=== PATIENT | male | born 1965 | race American Indian/Alaskan Native ===

== ENCOUNTER 2017-07-23 04:42 | Emergency (ER) | payer MEDICARE ==
[2017-07-23] MEDS ORDERED: HCTZ PO ONE (05:00)
[2017-07-23] MEDS ORDERED: TENORMIN PO ONE (05:00)
[2017-07-23] MEDS ORDERED: TENORMIN ONE (05:02)
[2017-07-23] MEDS ORDERED: HCTZ ONE (05:02)
[2017-07-23] MEDS ORDERED: MORPHINE IM ONE (09:37)
[2017-07-23] MEDS ORDERED: ZOFRAN ODT PO ONE (09:37)
--- NOTE | 2017-07-23 10:24 | Emergency Department Report ---
Entered by LORA BOSE, acting as scribe for ARLETTE MAC NP. ED Back Pain/Injury HPI - General Chief Complaint: Back Pain/Injury Stated Complaint: HIP PAIN , BACK PAIN Time Seen by Provider: 07/23/17 09:31 Source: patient Limitations: No Limitations - History of Present Illness Initial Comments: 51 y/o male presents to the ED c/o back pain and right hip pain x 3 years but worse today. Denies fever, chills, nausea, vomiting, chest pain and SOB. Pain is described as sharp, 8/10 and radiating to right leg. Patient states he is seeing specialist and pain management for chronic back pain (hurt his back at work while lifting). MRI done 2 weeks ago but waiting on results. Next appointment with pain management on 08/08/17 but ran out of pain meds 1 11/14 weeks ago. No alleviating or aggravating factors. NKDA. BARKLEY Complaint: back pain -: year(s) Similar Symptoms Previously: Yes Place: work Radiation: right leg Severity: severe Severity scale (0 -10): 8 Quality: sharp Consistency: constant Improves With: none Worsens With: none Context: while lifting Associated Symptoms: denies: chest pain, fever/chills, headaches, nausea/ vomiting, shortness of breath - Related Data Home Medications Medication Instructions Recorded Confirmed Last Taken Ranitidine HCl [Acid Lead Carpenter] 150 mg PO BID 01/24/16 01/24/16 Unknown Previous Rx's Medication Instructions Recorded Last Taken Type ALBUTEROL Inhaler [ProAir HFA 2 puff IH QID PRN #1 inhalation 02/17/16 Unknown Rx Inhaler] Prednisone [predniSONE 10 mg 10 mg PO .TAPER #1 tab.ds.pk 02/17/16 Unknown Rx (6-Day Pack, 21 Tabs)] Ibuprofen [Motrin 800 MG tab] 800 mg PO Q8HR PRN #40 tablet 03/05/16 Unknown Rx Cyclobenzaprine [Flexeril 10 MG 10 mg PO TID PRN #30 tablet 04/19/16 Unknown Rx TAB] Amitriptyline [Elavil] 25 mg PO QHS PRN #30 tab 01/16/17 Unknown Rx traMADol [Ultram 50 MG tab] 50 mg PO Q8HR PRN #30 tablet 03/05/17 Unknown Rx Atenolol [Tenormin] 25 mg PO DAILY #30 tablet 07/23/17 Unknown Rx Hydrochlorothiazide [HCTZ] 25 mg PO DAILY #30 tablet 07/23/17 Unknown Rx Allergies Allergy/AdvReac Type Severity Reaction Status Date / Time No Known Allergies Allergy Verified 11/20/15 08:38 ED Review of Systems Comment: All other systems reviewed and negative Constitutional: denies: chills, fever Respiratory: denies: shortness of breath Cardiovascular: denies: chest pain Gastrointestinal: denies: nausea, vomiting Musculoskeletal: back pain, other (hip pain) Neurological: denies: headache ED Past Medical Hx - Past Medical History Previous Medical History?: Yes Hx Hypertension: Yes Hx GERD: Yes Additional medical history: CHRONIC BACK PAIN - Surgical History Past Surgical History?: Yes Additional Surgical History: Back? - Social History Smoking Status: Current Every Day Smoker Substance Use Type: None - Medications Home Medications: Home Medications Medication Instructions Recorded Confirmed Last Taken Type Ranitidine HCl [Acid Lead Carpenter] 150 mg PO BID 01/24/16 01/24/16 Unknown History ALBUTEROL Inhaler [ProAir HFA 2 puff IH QID PRN #1 inhalation 02/17/16 Unknown Rx Inhaler] Prednisone [predniSONE 10 mg 10 mg PO .TAPER #1 tab.ds.pk 02/17/16 Unknown Rx (6-Day Pack, 21 Tabs)] Ibuprofen [Motrin 800 MG tab] 800 mg PO Q8HR PRN #40 tablet 03/05/16 Unknown Rx Cyclobenzaprine [Flexeril 10 MG 10 mg PO TID PRN #30 tablet 04/19/16 Unknown Rx TAB] Amitriptyline [Elavil] 25 mg PO QHS PRN #30 tab 01/16/17 Unknown Rx traMADol [Ultram 50 MG tab] 50 mg PO Q8HR PRN #30 tablet 01/16/17 Unknown Rx Atenolol [Tenormin] 25 mg PO DAILY #30 tablet 07/23/17 Unknown Rx Hydrochlorothiazide [HCTZ] 25 mg PO DAILY #30 tablet 07/23/17 Unknown Rx ED Physical Exam - General Limitations: No Limitations (0) General appearance: alert, in no apparent distress - Head Head exam: Present: atraumatic, normocephalic, normal inspection - Eye Eye exam: Present: normal appearance, PERRL, EOMI. Absent: scleral icterus, conjunctival injection, nystagmus, periorbital swelling, periorbital tenderness Pupils: Present: normal accommodation - ENT ENT exam: Present: normal exam, normal orophraynx, mucous membranes moist, normal external ear exam - Neck Neck exam: Present: normal inspection, full ROM. Absent: tenderness, meningismus, lymphadenopathy, thyromegaly - Respiratory Respiratory exam: Present: normal lung sounds bilaterally. Absent: respiratory distress, wheezes, rales, rhonchi, stridor, chest wall tenderness, accessory muscle use, decreased breath sounds, prolonged expiratory - Cardiovascular Cardiovascular Exam: Present: regular rate, normal rhythm, normal heart sounds. Absent: bradycardia, tachycardia, irregular rhythm, systolic murmur, diastolic murmur, rubs, gallop - GI/Abdominal GI/Abdominal exam: Present: soft, normal bowel sounds. Absent: distended, tenderness, guarding, rebound, rigid, diminished bowel sounds - Extremities Exam Extremities exam: Present: normal inspection, full ROM, normal capillary refill. Absent: tenderness, pedal edema, joint swelling, calf tenderness - Expanded Lower Extremity Exam Right Hip exam: Present: normal inspection, full ROM. Absent: external rotation, internal rotation Gait: Positive: observed and normal - Back Exam Back exam: Present: normal inspection, full ROM, tenderness (lumbar tenderness) , paraspinal tenderness (L spine ). Absent: CVA tenderness (R), CVA tenderness (L), muscle spasm, vertebral tenderness, rash noted - Expanded Back Exam Expanded Back exam: Absent: saddle anesthesia Back exam: Positive Straight Leg Raise: Right, Negative Straight Leg Raising: Left - Neurological Exam Neurological exam: Present: alert, oriented X3, normal gait - Psychiatric Psychiatric exam: Present: normal affect, normal mood - Skin Skin exam: Present: warm, dry, intact, normal color. Absent: rash ED Course Vital Signs 07/23/17 07/23/17 07/23/17 04:48 05:01 09:54 Temperature 98.5 F Pulse Rate 91 H 91 H Respiratory 22 20 Rate Blood Pressure 184/115 184/115 O2 Sat by Pulse 99 Oximetry - Reevaluation(s) Reevaluation #1: 07/23/17 09:56 PT is in pain management. [facility] [employer], RX bottles dated . Will treat pt's acute pain while in ED and pt will need to follow up with pain management. PT verbalizes understanding. 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 PT's bp improved. PT aware he will need to take his bp medication as prescribed. PT has no questions at this time. - Pulse Oximetry Interpretation Digit-Finger Initial Pulse Oximetry Readin Actions Taken: none ED Medical Decision Making - Differential Diagnosis htn, chronic pain Critical Care Time: No ED Disposition Clinical Impression: Acute exacerbation of chronic low back pain Hypertension Qualifiers: Hypertension type: essential hypertension Qualified Code(s): I10 - Essential ( primary) hypertension Disposition: TO HOME OR SELFCARE Is pt being admited?: No Does the pt Need Aspirin: No Condition: Stable Instructions: Chronic Pain (ED), Hypertension (ED) Additional Instructions: Follow up with PCP in 3-5 days for bp recheck Follow up with Pain management in 3-5 days You received a Narcotic pain medication while you were in the ED today. Do not drink alcohol or drive for the next 8 hours Prescriptions: Atenolol [Tenormin] 25 mg PO DAILY #30 tablet Hydrochlorothiazide [HCTZ] 25 mg PO DAILY #30 tablet Referrals: PRIMARY CARE, [Primary Care Provider] - 3-5 Days ANTONIO GONZALEZ MD [Staff Physician] - 3-5 Days [facility] [Outside] - 3-5 Days Time of Disposition: 10:24 This documentation as recorded by the LIDYA benavidez ELIZABETH,accurately reflects the service I personally performed and the decisions made by me,ARLETTE MAC NP.
[2017-07-23 10:26] VITALS: BP 162/103
== END 2017-07-23 10:28 | disposition home or self-care (01) ==
LOC: ED 04:42
DX: M54.5 Low back pain (principal); G89.29 Other chronic pain; I10 Essential (primary) hypertension; K21.9 Gastro-esophageal reflux disease without esophagitis; F17.200 Nicotine dependence, unspecified, uncomplicated
CPT/HCPCS: 96372; 99282; J2270; Q0162

== ENCOUNTER 2017-11-21 04:10 | Emergency (ER) | payer MEDICARE ==
[2017-11-21 05:00] VITALS: BP 159/99
[2017-11-21 08:06] LABS: Basophils # (Auto) 0.1 K/mm3 (0.0-0.1); Eosinophils # (Auto) 0.1 K/mm3 (0.0-0.4); Eosinophils % (Auto) 1.4 % (0.0-4.3); Hematocrit 38.6 % (35.5-45.6); Hemoglobin 12.5 gm/dl (11.8-15.2); Lymphocytes # (Auto) 0.9 K/mm3 (1.2-5.4); Lymphocytes % (Auto) 13.9 % (13.4-35.0); Mean Corpuscular HGB Conc 32 % (32-34); Mean Corpuscular Hemoglobin 30 pg (28-32); Mean Corpuscular Volume 91 fl (84-94); Monocytes % (Auto) 15.9 % (0.0-7.3); Platelet Count 201 K/mm3 (140-440); Red Blood Count 4.25 M/mm3 (3.65-5.03); Red Cell Distribution Width 16.3 % (13.2-15.2)
[2017-11-21 08:18] LABS: BUN/Creatinine Ratio 15; Blood Urea Nitrogen 12 mg/dL (9-20); Calcium 8.6 mg/dL (8.4-10.2); Hemolysis Index 7
--- NOTE | 2017-11-21 09:19 | XRay Report ---
CHEST 2 VIEWS INDICATION: Shortness of breath. COMPARISON: 02/17/2016. FINDINGS: PA and lateral chest radiographs demonstrate normal cardiomediastinal silhouette. Now clear lungs. Intact bones. CONCLUSION: No acute disease in the chest, improved. Thank you for the opportunity to participate in this patient's care.
== END 2017-11-21 18:28 | disposition left against medical advice (07) ==
LOC: ED 04:10
DX: R06.02 Shortness of breath (principal); M54.9 Dorsalgia, unspecified; Z53.21 Procedure and treatment not carried out due to patient leaving prior to being seen by health care provider
CPT/HCPCS: 36415; 71046; 80048; 85025; 87400; 93005; 93010

== ENCOUNTER 2017-12-22 08:22 | Emergency (ER) | payer MEDICARE ==
[2017-12-22 08:38] VITALS: BP 127/86
[2017-12-22 09:09] LABS: Alanine Aminotransferase 11 units/L (7-56); BUN/Creatinine Ratio 21; Blood Urea Nitrogen 23 mg/dL (9-20); Calcium 8.9 mg/dL (8.4-10.2); Hemolysis Index 4
[2017-12-22 09:22] LABS: Basophils % (Auto) 0.5 % (0.0-1.8); Eosinophils # (Auto) 0.8 K/mm3 (0.0-0.4); Eosinophils % (Auto) 8.9 % (0.0-4.3); Hematocrit 39.2 % (35.5-45.6); Hemoglobin 13.2 gm/dl (11.8-15.2); Lymphocytes # (Auto) 2.8 K/mm3 (1.2-5.4); Lymphocytes % (Auto) 31.9 % (13.4-35.0); Mean Corpuscular HGB Conc 34 % (32-34); Mean Corpuscular Hemoglobin 30 pg (28-32); Mean Corpuscular Volume 89 fl (84-94); Monocytes # (Auto) 0.8 K/mm3 (0.0-0.8); Monocytes % (Auto) 9.4 % (0.0-7.3); Platelet Count 309 K/mm3 (140-440); Red Blood Count 4.42 M/mm3 (3.65-5.03)
--- NOTE | 2017-12-22 11:33 | Emergency Department Report ---
Vomiting/Diarrhea - HPI Chief Complaint: Abdominal Pain Stated Complaint: ABD PAIN Time Seen by Provider: 12/22/17 11:25 Duration: patient is a 52-year-old Male who is presenting with epigastric discomfort and burning sensation mostly at night and in the mornings for approximately 3-5 months. Patient states this is slightly worse this week after taking meds for flu. Patient also has has some mild constipation as well. But is passing flatus. Severity: mild Nausea/Vomiting Severity: None Diarrhea Severity: None Pain Location: Epigastric Symptoms: Yes Able to Tolerate Fluids, No Watery Diarrhea, No Bloody diarrhea, No Fever, No Recent Unusual Foods, No Recent Untreated Water, No Recent use of Antibiotics, No Family w/ Similar Symptoms, No Contacts w/ Similar Symptoms, No Rash, No Hematuria, No Recent URI Symptoms ED Review of Systems ROS: Stated complaint: ABD PAIN Other details as noted in HPI Comment: All other systems reviewed and negative ED Past Medical Hx - Past Medical History Previous Medical History?: Yes Hx Hypertension: Yes Hx GERD: Yes Additional medical history: CHRONIC BACK PAIN, Post right hip surgery 10/03/17 - Surgical History Past Surgical History?: Yes Additional Surgical History: Back, right hip - Social History Smoking Status: Current Every Day Smoker Substance Use Type: Alcohol, Prescribed - Medications Home Medications: Home Medications Medication Instructions Recorded Confirmed Last Taken Type Ranitidine HCl [Acid Authorization Specialist] 150 mg PO BID 01/24/16 01/24/16 Unknown History ALBUTEROL Inhaler [ProAir HFA 2 puff IH QID PRN #1 inhalation 02/17/16 Unknown Rx Inhaler] Prednisone [predniSONE 10 mg 10 mg PO .TAPER #1 tab.ds.pk 02/17/16 Unknown Rx (6-Day Pack, 21 Tabs)] Ibuprofen [Motrin 800 MG tab] 800 mg PO Q8HR PRN #40 tablet 03/05/16 Unknown Rx Cyclobenzaprine [Flexeril 10 MG 10 mg PO TID PRN #30 tablet 04/19/16 Unknown Rx TAB] Amitriptyline [Elavil] 25 mg PO QHS PRN #30 tab 01/16/17 Unknown Rx traMADol [Ultram 50 MG tab] 50 mg PO Q8HR PRN #30 tablet 01/16/17 Unknown Rx Atenolol [Tenormin] 25 mg PO DAILY #30 tablet 07/23/17 Unknown Rx Hydrochlorothiazide [HCTZ] 25 mg PO DAILY #30 tablet 07/23/17 Unknown Rx Dicyclomine [Bentyl] 20 mg PO QID #14 tablet 12/22/17 Unknown Rx Sucralfate [Carafate] 1 gm PO Q6HR 30 Days udc 12/22/17 Unknown Rx Vomiting Diarrhea Exam - Exam General: Vital signs noted. No distress. Alert and acting appropriately. HEENT: Yes Moist Mucous Membranes, No Pharyngeal Erythema, No Pharyngeal Exudates, No Rhinorrhea, No Conjuctival Injection, No Frontal Tenderness, No Maxillary Tenderness Neck: No Adenopathy, No Rigidity Lungs: Yes Clear Lung Sounds, Yes Good Air Exchange, No Wheezes, No Stridor, No Cough, No Nasal Flaring, No Retractions, No Use of Accessory Muscles Heart exam: Regular: Yes, Murmur: No, Tachycardia: No Abdomen: Tenderness: No, Peritoneal Signs: No, Distention: No, Hyperactive Bowel sounds: No Skin exam: Rash: No, Edema: No, Normal turgor: Yes Neurologic: Alert and oriented, no deficits. Musculoskeletal: Unremarkable. ED Course Vital Signs 12/22/17 08:35 Temperature 98.3 F Pulse Rate 87 Respiratory 20 Rate Blood Pressure 127/86 O2 Sat by Pulse 97 Oximetry ED Medical Decision Making - Lab Data Result diagrams: 12/22/17 08:40 12/22/17 08:40 - Medical Decision Making Patient's laboratory studies are within normal limits including a lipase. Patient will be referred to gastroenterology will be started on Carafate since [id number] ranitidine is not helping and be discharged home. Critical care attestation.: If time is entered above; I have spent that time in minutes in the direct care of this critically ill patient, excluding procedure time. ED Disposition Clinical Impression: GERD (gastroesophageal reflux disease) Qualifiers: Esophagitis presence: esophagitis presence not specified Qualified Code(s): K21.9 - Gastro-esophageal reflux disease without esophagitis Disposition: DC-01 TO HOME OR SELFCARE Is pt being admited?: No Does the pt Need Aspirin: No Condition: Stable Instructions: Gastroesophageal Reflux Disease (ED) Prescriptions: Dicyclomine [Bentyl] 20 mg PO QID #14 tablet Sucralfate [Carafate] 1 gm PO Q6HR 30 Days [facility] [place] Referrals: NAZ GUZMÁN MD [Staff Physician] - 3-5 Days
[2017-12-22 11:39] LABS: Bilirubin,Urine NEG (Negative); Blood,Urine NEG (Negative); Color,Urine Yellow (Yellow); Mucus,Urine FEW /HPF; Nitrite,Urine NEG (Negative); Protein,Urine <15 mg/dL mg/dL (Negative); Urobilinogen,Urine < 2.0 mg/dL (<2.0)
[2017-12-22 11:42] LABS: WBC,Urine < 1.0 /HPF (0.0-6.0)
[2017-12-22 11:56] LABS: Hyaline Casts,Urine 1 /LPF
== END 2017-12-22 12:30 | disposition home or self-care (01) ==
LOC: ED 08:22
DX: K21.9 Gastro-esophageal reflux disease without esophagitis (principal); I10 Essential (primary) hypertension; F17.200 Nicotine dependence, unspecified, uncomplicated
CPT/HCPCS: 36415; 80053; 81001; 83690; 85025; 99283

== ENCOUNTER 2018-01-05 02:46 | Emergency (ER) | payer MEDICARE ==
[2018-01-05 04:14] VITALS: BP 124/92
[2018-01-05] MEDS ORDERED: TORADOL IM ONE (04:47)
--- NOTE | 2018-01-05 04:53 | Emergency Department Report ---
ED Recheck HPI - General Chief Complaint: Extremity Injury, Lower Stated Complaint: BSCK PAIN Time Seen by Provider: 01/05/18 04:28 Source: patient Mode of arrival: Ambulatory Limitations: No Limitations - History of Present Illness Initial Comments: This is a 52-year-old male nontoxic, well nourished in appearance, no acute signs of distress presents to the ED with c/o of acute on chronic back and hip pain. Patient stated he follows up with a pain specialist and was discharged for unknown reason. Patient stated he has been taking tramadol and is currently out of the past 2 weeks. Patient denies any new trauma. Patient denies any chest pain, shortness of breath, fever, headache, stiff neck, bladder or bowel instability, dysuria, polyuria or hematuria. Patient denies any allergies. Past medical history includes GERD, hypertension and chronic back pain and chronic hip pain. MD Complaint: medication refill request Symptoms Since Prior Visit: no new symptoms Associated Symptoms: none. denies: fever, chills, chest pain, shortness of breath, rash, malaise, nasuea, abdominal pain - Related Data Home Medications Medication Instructions Recorded Confirmed Last Taken Ranitidine HCl [Acid Yarder Boss] 150 mg PO BID 01/24/16 01/24/16 Unknown Previous Rx's Medication Instructions Recorded Last Taken Type ALBUTEROL Inhaler [ProAir HFA 2 puff IH QID PRN #1 inhalation 02/17/16 Unknown Rx Inhaler] Prednisone [predniSONE 10 mg 10 mg PO .TAPER #1 tab.ds.pk 02/17/16 Unknown Rx (6-Day Pack, 21 Tabs)] Ibuprofen [Motrin 800 MG tab] 800 mg PO Q8HR PRN #40 tablet 03/05/16 Unknown Rx Cyclobenzaprine [Flexeril 10 MG 10 mg PO TID PRN #30 tablet 04/19/16 Unknown Rx TAB] Amitriptyline [Elavil] 25 mg PO QHS PRN #30 tab 01/16/17 Unknown Rx traMADol [Ultram 50 MG tab] 50 mg PO Q8HR PRN #30 tablet 01/16/17 Unknown Rx Atenolol [Tenormin] 25 mg PO DAILY #30 tablet 07/23/17 Unknown Rx Hydrochlorothiazide [HCTZ] 25 mg PO DAILY #30 tablet 07/23/17 Unknown Rx Dicyclomine [Bentyl] 20 mg PO QID #14 tablet 12/22/17 Unknown Rx Sucralfate [Carafate] 1 gm PO Q6HR 30 Days udc 12/22/17 Unknown Rx Ibuprofen [Motrin] 600 mg PO Q8H PRN #30 tablet 01/05/18 Unknown Rx Allergies Allergy/AdvReac Type Severity Reaction Status Date / Time No Known Allergies Allergy Verified 11/20/15 08:38 ED Review of Systems ROS: Stated complaint: BSCK PAIN Other details as noted in HPI Constitutional: denies: chills, fever Eyes: denies: eye pain, eye discharge, vision change ENT: denies: ear pain, throat pain Respiratory: denies: cough, shortness of breath, wheezing Cardiovascular: denies: chest pain, palpitations Endocrine: no symptoms reported Gastrointestinal: denies: abdominal pain, nausea, diarrhea Genitourinary: denies: urgency, dysuria Musculoskeletal: back pain, arthralgia. denies: joint swelling Skin: denies: rash, lesions Neurological: denies: headache, weakness, paresthesias Psychiatric: denies: anxiety, depression Hematological/Lymphatic: denies: easy bleeding, easy bruising ED Past Medical Hx - Past Medical History Previous Medical History?: Yes Hx Hypertension: Yes Hx GERD: Yes Additional medical history: CHRONIC BACK PAIN, Post right hip surgery 10/03/17 - Surgical History Past Surgical History?: Yes Additional Surgical History: right hip - Social History Smoking Status: Current Some Day Smoker Substance Use Type: Alcohol - Medications Home Medications: Home Medications Medication Instructions Recorded Confirmed Last Taken Type Ranitidine HCl [Acid Yarder Boss] 150 mg PO BID 01/24/16 01/24/16 Unknown History ALBUTEROL Inhaler [ProAir HFA 2 puff IH QID PRN #1 inhalation 02/17/16 Unknown Rx Inhaler] Prednisone [predniSONE 10 mg 10 mg PO .TAPER #1 tab.ds.pk 02/17/16 Unknown Rx (6-Day Pack, 21 Tabs)] Ibuprofen [Motrin 800 MG tab] 800 mg PO Q8HR PRN #40 tablet 03/05/16 Unknown Rx Cyclobenzaprine [Flexeril 10 MG 10 mg PO TID PRN #30 tablet 04/19/16 Unknown Rx TAB] Amitriptyline [Elavil] 25 mg PO QHS PRN #30 tab 01/16/17 Unknown Rx traMADol [Ultram 50 MG tab] 50 mg PO Q8HR PRN #30 tablet 01/16/17 Unknown Rx Atenolol [Tenormin] 25 mg PO DAILY #30 tablet 07/23/17 Unknown Rx Hydrochlorothiazide [HCTZ] 25 mg PO DAILY #30 tablet 07/23/17 Unknown Rx Dicyclomine [Bentyl] 20 mg PO QID #14 tablet 12/22/17 Unknown Rx Sucralfate [Carafate] 1 gm PO Q6HR 30 Days udc 12/22/17 Unknown Rx Ibuprofen [Motrin] 600 mg PO Q8H PRN #30 tablet 01/05/18 Unknown Rx ED Physical Exam - General Limitations: No Limitations General appearance: alert, in no apparent distress - Head Head exam: Present: atraumatic, normocephalic - Eye Eye exam: Present: normal appearance, PERRL, EOMI Pupils: Present: normal accommodation - ENT ENT exam: Present: mucous membranes moist - Neck Neck exam: Present: normal inspection - Respiratory Respiratory exam: Present: normal lung sounds bilaterally. Absent: respiratory distress, wheezes, rales, rhonchi, stridor, chest wall tenderness, accessory muscle use, decreased breath sounds, prolonged expiratory - Cardiovascular Cardiovascular Exam: Present: regular rate, normal rhythm, normal heart sounds. Absent: irregular rhythm, systolic murmur, diastolic murmur, rubs, gallop - GI/Abdominal GI/Abdominal exam: Present: soft, normal bowel sounds. Absent: distended, tenderness, guarding, rebound, rigid, diminished bowel sounds - Rectal Rectal exam: Present: deferred - Extremities Exam Extremities exam: Present: normal inspection, full ROM, normal capillary refill. Absent: tenderness, pedal edema, joint swelling, calf tenderness - Expanded Lower Extremity Exam Right Hip exam: Present: normal inspection, full ROM, external rotation, internal rotation, pelvic stability. Absent: tenderness, swelling, abrasion, laceration , ecchymosis, deformity, crepidus, dislocation, erythema, shortening Upper Leg exam: Present: normal inspection, full ROM. Absent: tenderness, swelling, abrasion, laceration, ecchymosis, deformity, crepidus, dislocation, erythema Knee exam: Present: normal inspection, full ROM Lower Leg exam: Present: normal inspection, full ROM Ankle exam: Present: normal inspection, full ROM Foot/Toe exam: Present: normal inspection, full ROM Neuro vascular tendon exam: Present: no vascular compromise. Absent: pulse deficit, abnormal cap refill, motor deficit, sensory deficit, tendon deficit, extremity cold to touch, pallor, abnormal 2-point discrimination, decreased fine /light touch, foot drop, peroneal nerve deficit, significant pain with passive ROM of distal joint Gait: Positive: observed and normal - Back Exam Back exam: Present: normal inspection, full ROM, paraspinal tenderness (lumbar region). Absent: tenderness, CVA tenderness (R), CVA tenderness (L), muscle spasm, vertebral tenderness, rash noted - Expanded Back Exam Expanded Back exam: Absent: saddle anesthesia Back exam: Negative Straight Leg Raising: Left, Right - Neurological Exam Neurological exam: Present: alert, oriented X3, CN II-XII intact, normal gait, reflexes normal - Psychiatric Psychiatric exam: Present: normal affect, normal mood - Skin Skin exam: Present: warm, dry, intact, normal color. Absent: rash ED Course Vital Signs 01/05/18 04:09 Temperature 98.0 F Pulse Rate 106 H Respiratory 18 Rate Blood Pressure 124/92 O2 Sat by Pulse 94 Oximetry - Reevaluation(s) Reevaluation #1: 01/05/18 04:52 Patient is speaking in full sentences with no signs of distress noted. ED Recheck MDM - Medical Decision Making This is a 52-year-old male presents with chronic hip pain and back pain. Patient is stable and was examined by me. [facility] patient just received tramadol on December 16 for 15 days supply. Patient received Toradol 30 mg IM in the ED. I will discharge patient with Motrin. Patient was instructed to Follow-up with a primary care doctor in 3-5 days or if symptoms worsen and continue return to emergency room as soon as possible. At time of discharge, the patient does not seem toxic or ill in appearance. No acute signs of distress noted. Patient agrees to discharge treatment plan of care. No further questions noted by the patient. Critical care attestation.: If time is entered above; I have spent that time in minutes in the direct care of this critically ill patient, excluding procedure time. ED Disposition Clinical Impression: Chronic back pain Qualifiers: Back pain location: low back pain Back pain laterality: unspecified Sciatica presence: unspecified whether sciatica present Qualified Code(s): M54.5 - Low back pain; G89.29 - Other chronic pain; G89.29 - Other chronic pain Chronic hip pain Qualifiers: Laterality: right Qualified Code(s): M25.551 - Pain in right hip; G89.29 - Other chronic pain; G89.29 - Other chronic pain Disposition: TO HOME OR SELFCARE Is pt being admited?: No Does the pt Need Aspirin: No Condition: Stable Instructions: Chronic Pain (ED), Chronic Back Pain (ED), Arthralgia (ED) Additional Instructions: Follow-up with a orthopedic doctor in 3-5 days or if symptoms worsen and continue return to emergency room as soon as possible. Prescriptions: Ibuprofen [Motrin] 600 mg PO Q8H PRN #30 tablet PRN Reason: Pain Referrals: PRIMARY CARE, [Primary Care Provider] - 3-5 Days EULALIA GONZALEZ MD [Staff Physician] - 3-5 Days ANASTASIIA OSBORN MD [Staff Physician] - 3-[address] [facility] [place] [Outside] - 3-5 Days [facility] [Outside] - 3-5 Days
== END 2018-01-05 05:16 | disposition home or self-care (01) ==
LOC: ED 02:46
DX: M54.5 Low back pain (principal); M25.551 Pain in right hip; G89.29 Other chronic pain; K21.9 Gastro-esophageal reflux disease without esophagitis; I10 Essential (primary) hypertension; F17.200 Nicotine dependence, unspecified, uncomplicated
CPT/HCPCS: 96372; 99282; J1885

== ENCOUNTER 2018-02-28 19:33 | Emergency (ER) | payer MEDICARE ==
[2018-02-28] MEDS ORDERED: TYLENOL ONE (21:29)
[2018-02-28] MEDS ORDERED: CATAPRES ONE ×2 (21:30→21:32)
[2018-02-28 21:35] VITALS: BP 188/102
[2018-02-28] MEDS ORDERED: CATAPRES PO ONE (21:35)
[2018-02-28] MEDS ORDERED: TYLENOL PO ONE (21:36)
== END 2018-02-28 21:45 | disposition left against medical advice (07) ==
LOC: ED 19:33
DX: I10 Essential (primary) hypertension (principal); Z53.21 Procedure and treatment not carried out due to patient leaving prior to being seen by health care provider

== ENCOUNTER 2018-07-10 08:33 | Emergency (ER) | payer MEDICARE ==
[2018-07-10 08:54] VITALS: BP 137/92
--- NOTE | 2018-07-10 09:31 | Emergency Department Report ---
ED General Adult HPI - General Chief complaint: Back Pain/Injury Stated complaint: BACK/RT EAR PAIN Time Seen by Provider: 07/10/18 09:10 Source: patient Mode of arrival: Ambulatory Limitations: No Limitations - History of Present Illness Initial comments: Patient presents to the emergency department with the chief complaint of chronic lower back pain and chronic right ear pain. Patient states he recently changed insurance and has not seen his ENT or pain management doctor in a month. Patient states he's had lower back pain for 7 years and was ultram and Tylenol 3 for chronic back pain. Patient also complains of chronic ear drainage from the right ear for years. -: Gradual Radiation: non-radiation Severity scale (0 -10): 4 Quality: dull Consistency: constant Improves with: none Worsens with: cold therapy Associated Symptoms: denies other symptoms Treatments Prior to Arrival: none - Related Data Home Medications Medication Instructions Recorded Confirmed Last Taken Ranitidine HCl [Acid Staple Cutter] 150 mg PO BID 01/24/16 01/24/16 Unknown Previous Rx's Medication Instructions Recorded Last Taken Type ALBUTEROL Inhaler [ProAir HFA 2 puff IH QID PRN #1 inhalation 02/17/16 Unknown Rx Inhaler] Prednisone [predniSONE 10 mg 10 mg PO .TAPER #1 tab.ds.pk 02/17/16 Unknown Rx (6-Day Pack, 21 Tabs)] Ibuprofen [Motrin 800 MG tab] 800 mg PO Q8HR PRN #40 tablet 03/05/16 Unknown Rx Cyclobenzaprine [Flexeril 10 MG 10 mg PO TID PRN #30 tablet 04/19/16 Unknown Rx TAB] Amitriptyline [Elavil] 25 mg PO QHS PRN #30 tab 01/16/17 Unknown Rx traMADol [Ultram 50 MG tab] 50 mg PO Q8HR PRN #30 tablet 01/16/17 Unknown Rx Atenolol [Tenormin] 25 mg PO DAILY #30 tablet 07/23/17 Unknown Rx hydroCHLOROthiazide [HCTZ] 25 mg PO DAILY #30 tablet 07/23/17 Unknown Rx Dicyclomine [Bentyl] 20 mg PO QID #14 tablet 12/22/17 Unknown Rx Sucralfate [Carafate] 1 gm PO Q6HR 30 Days udc 12/22/17 Unknown Rx Ibuprofen [Motrin] 600 mg PO Q8H PRN #30 tablet 01/05/18 Unknown Rx Acetaminophen/Codeine [Tylenol 1 tab PO Q6H PRN #12 tab 07/10/18 Unknown Rx /Codeine # 3 tab] Neomycin/Polymyxin B Sulf/Hc 4 drop AU TID #1 drops.susp 07/10/18 Unknown Rx [NEOMY/POLY/HC 3.5mg/07690zewau/10mg OTIC] traMADol [Ultram] 50 mg PO Q6HR PRN #24 tablet 07/10/18 Unknown Rx Allergies Allergy/AdvReac Type Severity Reaction Status Date / Time No Known Allergies Allergy Verified 11/20/15 08:38 ED Review of Systems ROS: Stated complaint: BACK/RT EAR PAIN Other details as noted in HPI Constitutional: denies: chills, fever Eyes: denies: eye pain, eye discharge, vision change ENT: ear pain. denies: throat pain Respiratory: denies: cough, shortness of breath, wheezing Cardiovascular: denies: chest pain, palpitations Endocrine: no symptoms reported Gastrointestinal: denies: abdominal pain, nausea, diarrhea Genitourinary: denies: urgency, dysuria Musculoskeletal: back pain. denies: joint swelling, arthralgia Skin: denies: rash, lesions Neurological: denies: headache, weakness, paresthesias Psychiatric: denies: anxiety, depression Hematological/Lymphatic: denies: easy bleeding, easy bruising ED Past Medical Hx - Past Medical History Previous Medical History?: Yes Hx Hypertension: Yes Hx GERD: Yes Additional medical history: CHRONIC BACK PAIN, Post right hip surgery 10/03/17 - Surgical History Past Surgical History?: Yes Additional Surgical History: right hip - Social History Smoking Status: Current Every Day Smoker Substance Use Type: None - Medications Home Medications: Home Medications Medication Instructions Recorded Confirmed Last Taken Type Ranitidine HCl [Acid Staple Cutter] 150 mg PO BID 01/24/16 01/24/16 Unknown History ALBUTEROL Inhaler [ProAir HFA 2 puff IH QID PRN #1 inhalation 02/17/16 Unknown Rx Inhaler] Prednisone [predniSONE 10 mg 10 mg PO .TAPER #1 tab.ds.pk 02/17/16 Unknown Rx (6-Day Pack, 21 Tabs)] Ibuprofen [Motrin 800 MG tab] 800 mg PO Q8HR PRN #40 tablet 03/05/16 Unknown Rx Cyclobenzaprine [Flexeril 10 MG 10 mg PO TID PRN #30 tablet 04/19/16 Unknown Rx TAB] Amitriptyline [Elavil] 25 mg PO QHS PRN #30 tab 01/16/17 Unknown Rx traMADol [Ultram 50 MG tab] 50 mg PO Q8HR PRN #30 tablet 01/16/17 Unknown Rx Atenolol [Tenormin] 25 mg PO DAILY #30 tablet 07/23/17 Unknown Rx hydroCHLOROthiazide [HCTZ] 25 mg PO DAILY #30 tablet 07/23/17 Unknown Rx Dicyclomine [Bentyl] 20 mg PO QID #14 tablet 12/22/17 Unknown Rx Sucralfate [Carafate] 1 gm PO Q6HR 30 Days udc 12/22/17 Unknown Rx Ibuprofen [Motrin] 600 mg PO Q8H PRN #30 tablet 01/05/18 Unknown Rx Acetaminophen/Codeine [Tylenol 1 tab PO Q6H PRN #12 tab 07/10/18 Unknown Rx /Codeine # 3 tab] Neomycin/Polymyxin B Sulf/Hc 4 drop AU TID #1 drops.susp 07/10/18 Unknown Rx [NEOMY/POLY/HC 3.5mg/81704bqcrr/10mg OTIC] traMADol [Ultram] 50 mg PO Q6HR PRN #24 tablet 07/10/18 Unknown Rx ED Physical Exam - General Limitations: No Limitations General appearance: alert - Head Head exam: Present: atraumatic, normal inspection - Eye Eye exam: Present: normal appearance, PERRL, EOMI Pupils: Present: normal accommodation - ENT ENT exam: Present: other (drainage from right ear canal with erythema of the canal) - Neck Neck exam: Present: normal inspection - Respiratory Respiratory exam: Present: normal lung sounds bilaterally - Cardiovascular Cardiovascular Exam: Present: regular rate, normal rhythm - GI/Abdominal GI/Abdominal exam: Present: soft, normal bowel sounds. Absent: distended, tenderness - Extremities Exam Extremities exam: Present: normal inspection, full ROM - Back Exam Back exam: Present: other (tender to palpation of the paralumbar region) - Neurological Exam Neurological exam: Present: alert, altered, oriented X3, CN II-XII intact. Absent: motor sensory deficit - Psychiatric Psychiatric exam: Present: normal affect, normal mood - Skin Skin exam: Present: warm, dry, intact ED Course Vital Signs 07/10/18 08:51 Temperature 98.9 F Pulse Rate 76 Respiratory 16 Rate Blood Pressure 137/92 O2 Sat by Pulse 96 Oximetry ED Medical Decision Making - Medical Decision Making Discussed results and plan of care with patient Critical care attestation.: If time is entered above; I have spent that time in minutes in the direct care of this critically ill patient, excluding procedure time. ED Disposition Clinical Impression: Back pain, Ear pain, right Disposition: - TO HOME OR SELFCARE Is pt being admited?: No Does the pt Need Aspirin: No Condition: Stable Instructions: Low Back Strain (ED), Earache (ED), Chronic Back Pain (ED) Additional Instructions: return if worse Prescriptions: Acetaminophen/Codeine [Tylenol /Codeine # 3 tab] 1 tab PO Q6H PRN #12 tab PRN Reason: Pain , Severe (7-10) Neomycin/Polymyxin B Sulf/Hc [NEOMY/POLY/HC 3.5mg/92598rkezh/10mg OTIC] 4 drop AU TID #1 drops.susp traMADol [Ultram] 50 mg PO Q6HR PRN #24 tablet PRN Reason: Pain Referrals: [facility] [Outside] - 3-5 Days Time of Disposition: 09:31
== END 2018-07-10 10:04 | disposition home or self-care (01) ==
LOC: ED 08:33
DX: M54.5 Low back pain (principal); H92.01 Otalgia, right ear; I10 Essential (primary) hypertension; K21.9 Gastro-esophageal reflux disease without esophagitis; F17.200 Nicotine dependence, unspecified, uncomplicated; G89.29 Other chronic pain
CPT/HCPCS: 99282

== ENCOUNTER 2018-08-10 13:27 | Emergency (ER) | payer MEDICARE ==
[2018-08-10 14:03] LABS: Basophils # (Auto) 0.1 K/mm3 (0.0-0.1); Basophils % (Auto) 1.3 % (0.0-1.8); Eosinophils # (Auto) 0.6 K/mm3 (0.0-0.4); Eosinophils % (Auto) 6.6 % (0.0-4.3); Hemoglobin 14.4 gm/dl (11.8-15.2); Lymphocytes # (Auto) 2.8 K/mm3 (1.2-5.4); Lymphocytes % (Auto) 33.2 % (13.4-35.0); Mean Corpuscular HGB Conc 33 % (32-34); Mean Corpuscular Hemoglobin 30 pg (28-32); Mean Corpuscular Volume 89 fl (84-94); Monocytes # (Auto) 0.7 K/mm3 (0.0-0.8); Monocytes % (Auto) 7.7 % (0.0-7.3); Platelet Count 280 K/mm3 (140-440); Red Blood Count 4.86 M/mm3 (3.65-5.03); Red Cell Distribution Width 17.7 % (13.2-15.2)
[2018-08-10] MEDS ORDERED: NACL 0.9% 1000 ML 1,000 ML IV ONE (14:16)
[2018-08-10] MEDS ORDERED: DILAUDID IV ONE (14:16)
[2018-08-10] MEDS ORDERED: ZOFRAN IV ONE (14:16)
[2018-08-10] MEDS ORDERED: PEPCID IV ONE (14:16)
[2018-08-10 14:21] LABS: BUN/Creatinine Ratio 14; Blood Urea Nitrogen 18 mg/dL (9-20); Calcium 9.8 mg/dL (8.4-10.2); Hemolysis Index 14
--- NOTE | 2018-08-10 14:24 | Emergency Department Report ---
<JUANCHO WEISS - Last Filed: 08/10/18 15:55> ED General Adult HPI - General Chief complaint: Chest Pain Stated complaint: CHEST/STOMACH PAIN Time Seen by Provider: 08/10/18 14:02 Source: patient, RN notes reviewed, old records reviewed Mode of arrival: Ambulatory Limitations: No Limitations - History of Present Illness Initial comments: This is a 52-year-old gentleman who is not known to this provider previously. May have a history of GERD or gastritis, possibly has a history of stomach ulcers, does not have a local primary care doctor, recently changed position secondary to insurance. Also has a history of hypertension. Presents to the ER with a complaint of burning epigastric pain for a few months. It got worse over the past few weeks, and then dramatically worsened yesterday. The pain is burning, and it does not radiate to the back, arms or neck. There is no vomiting or diaphoresis. It does move upwards from the epigastric region to the substernal region. Patient denies cocaine, aspirin. He denies DVT, pulmonary embolus risk factors. He also denies profound shortness of breath. His symptoms were markedly improved in the emergency room with hydromorphone. -: Gradual, month(s) Location: abdomen Radiation: other (chest) Quality: burning Consistency: intermittent Improves with: medication Worsens with: none Associated Symptoms: chest pain, other (abdominal pain). denies: cough, diaphoresis, fever/chills, headaches, loss of appetite, malaise, nausea/vomiting , rash, seizure, shortness of breath, syncope, weakness - Related Data Home Medications Medication Instructions Recorded Confirmed Last Taken Ranitidine HCl [Acid Plc Engineer] 150 mg PO BID 01/24/16 01/24/16 Unknown Previous Rx's Medication Instructions Recorded Last Taken Type ALBUTEROL Inhaler (OR & NICU) 2 puff IH QID PRN #1 inhalation 02/17/16 Unknown Rx [ProAir HFA Inhaler] Prednisone [predniSONE 10 mg 10 mg PO .TAPER #1 tab.ds.pk 02/17/16 Unknown Rx (6-Day Pack, 21 Tabs)] Ibuprofen [Motrin 800 MG tab] 800 mg PO Q8HR PRN #40 tablet 03/05/16 Unknown Rx Cyclobenzaprine [Flexeril 10 MG 10 mg PO TID PRN #30 tablet 04/19/16 Unknown Rx TAB] Amitriptyline [Elavil] 25 mg PO QHS PRN #30 tab 01/16/17 Unknown Rx traMADol [Ultram 50 MG tab] 50 mg PO Q8HR PRN #30 tablet 01/16/17 Unknown Rx Atenolol [Tenormin] 25 mg PO DAILY #30 tablet 07/23/17 Unknown Rx hydroCHLOROthiazide [HCTZ] 25 mg PO DAILY #30 tablet 07/23/17 Unknown Rx Dicyclomine [Bentyl] 20 mg PO QID #14 tablet 12/22/17 Unknown Rx Sucralfate [Carafate] 1 gm PO Q6HR 30 Days udc 12/22/17 Unknown Rx Ibuprofen [Motrin] 600 mg PO Q8H PRN #30 tablet 01/05/18 Unknown Rx Acetaminophen/Codeine [Tylenol 1 tab PO Q6H PRN #12 tab 07/10/18 Unknown Rx /Codeine # 3 tab] Neomycin/Polymyxin B Sulf/Hc 4 drop AU TID #1 drops.susp 07/10/18 Unknown Rx [NEOMY/POLY/HC 3.5mg/32763giaas/10mg OTIC] traMADol [Ultram] 50 mg PO Q6HR PRN #24 tablet 07/10/18 Unknown Rx Acetaminophen [Tylenol Arthritis] 650 mg PO Q6HR PRN #30 tablet.er 08/10/18 Unknown Rx Famotidine [Pepcid] 20 mg PO BID #60 tablet 08/10/18 Unknown Rx Ondansetron [Zofran Odt] 4 mg PO Q8HR PRN #20 tab.rapdis 08/10/18 Unknown Rx Allergies Allergy/AdvReac Type Severity Reaction Status Date / Time No Known Allergies Allergy Verified 11/20/15 08:38 ED Review of Systems ROS: Stated complaint: CHEST/STOMACH PAIN Other details as noted in HPI Constitutional: denies: fever, malaise Eyes: denies: eye discharge ENT: denies: epistaxis Respiratory: denies: cough Cardiovascular: chest pain Gastrointestinal: abdominal pain. denies: hematemesis, melena, hematochezia Genitourinary: denies: dysuria Musculoskeletal: denies: back pain Skin: denies: lesions Neurological: denies: weakness Psychiatric: anxiety ED Past Medical Hx - Past Medical History Hx Hypertension: Yes Hx GERD: Yes Additional medical history: CHRONIC BACK PAIN, Post right hip surgery 10/03/17 - Surgical History Additional Surgical History: right hip - Social History Smoking Status: Never Smoker Substance Use Type: None - Medications Home Medications: Home Medications Medication Instructions Recorded Confirmed Last Taken Type Ranitidine HCl [Acid Plc Engineer] 150 mg PO BID 01/24/16 01/24/16 Unknown History ALBUTEROL Inhaler (OR & NICU) 2 puff IH QID PRN #1 inhalation 02/17/16 Unknown Rx [ProAir HFA Inhaler] Prednisone [predniSONE 10 mg 10 mg PO .TAPER #1 tab.ds.pk 02/17/16 Unknown Rx (6-Day Pack, 21 Tabs)] Ibuprofen [Motrin 800 MG tab] 800 mg PO Q8HR PRN #40 tablet 03/05/16 Unknown Rx Cyclobenzaprine [Flexeril 10 MG 10 mg PO TID PRN #30 tablet 04/19/16 Unknown Rx TAB] Amitriptyline [Elavil] 25 mg PO QHS PRN #30 tab 01/16/17 Unknown Rx traMADol [Ultram 50 MG tab] 50 mg PO Q8HR PRN #30 tablet 01/16/17 Unknown Rx Atenolol [Tenormin] 25 mg PO DAILY #30 tablet 07/23/17 Unknown Rx hydroCHLOROthiazide [HCTZ] 25 mg PO DAILY #30 tablet 07/23/17 Unknown Rx Dicyclomine [Bentyl] 20 mg PO QID #14 tablet 12/22/17 Unknown Rx Sucralfate [Carafate] 1 gm PO Q6HR 30 Days udc 12/22/17 Unknown Rx Ibuprofen [Motrin] 600 mg PO Q8H PRN #30 tablet 01/05/18 Unknown Rx Acetaminophen/Codeine [Tylenol 1 tab PO Q6H PRN #12 tab 07/10/18 Unknown Rx /Codeine # 3 tab] Neomycin/Polymyxin B Sulf/Hc 4 drop AU TID #1 drops.susp 07/10/18 Unknown Rx [NEOMY/POLY/HC 3.5mg/63616rolkn/10mg OTIC] traMADol [Ultram] 50 mg PO Q6HR PRN #24 tablet 07/10/18 Unknown Rx Acetaminophen [Tylenol Arthritis] 650 mg PO Q6HR PRN #30 tablet.er 08/10/18 Unknown Rx Famotidine [Pepcid] 20 mg PO BID #60 tablet 08/10/18 Unknown Rx Ondansetron [Zofran Odt] 4 mg PO Q8HR PRN #20 tab.rapdis 08/10/18 Unknown Rx ED Physical Exam - General Limitations: No Limitations General appearance: alert, in no apparent distress - Head Head exam: Present: atraumatic, normocephalic - Eye Eye exam: Present: normal appearance, EOMI. Absent: nystagmus - ENT ENT exam: Present: normal exam, normal orophraynx, mucous membranes moist, normal external ear exam - Neck Neck exam: Present: normal inspection, full ROM. Absent: tenderness, meningismus - Respiratory Respiratory exam: Present: normal lung sounds bilaterally. Absent: respiratory distress - Cardiovascular Cardiovascular Exam: Present: regular rate, normal rhythm, normal heart sounds. Absent: bradycardia, tachycardia, irregular rhythm, systolic murmur, diastolic murmur, rubs, gallop - GI/Abdominal GI/Abdominal exam: Present: soft, normal bowel sounds. Absent: distended, tenderness, guarding, rebound, rigid, pulsatile mass - Rectal Rectal exam: Present: deferred - Extremities Exam Extremities exam: Present: normal inspection, full ROM, normal capillary refill , other (2+ pulses noted in the bilateral upper, lower extremities. Compartments soft. No long bony tenderness. The pelvis is stable.). Absent: tenderness, pedal edema, joint swelling, calf tenderness - Back Exam Back exam: Present: normal inspection, full ROM. Absent: tenderness, CVA tenderness (R), paraspinal tenderness, vertebral tenderness - Neurological Exam Neurological exam: Present: alert, oriented X3, CN II-XII intact, normal gait, other (Extraocular movements intact. Tongue midline. No facial droop. Facial sensation intact to light touch in the V1, V2, V3 distribution bilaterally. 5 and 5 strength in 4 extremities.. Sensation is intact to light touch in 4 extremities.). Absent: motor sensory deficit - Psychiatric Psychiatric exam: Present: normal affect, normal mood - Skin Skin exam: Present: warm, dry, intact, normal color. Absent: rash ED Course Vital Signs 08/10/18 08/10/18 08/10/18 13:33 14:31 15:31 Temperature 97.9 F Pulse Rate 89 91 H 85 Respiratory 22 17 17 Rate Blood Pressure 125/81 143/93 148/96 O2 Sat by Pulse 97 98 99 Oximetry 08/10/18 08/10/18 16:31 17:01 Temperature Pulse Rate 85 74 Respiratory 13 9 L Rate Blood Pressure 140/95 130/81 O2 Sat by Pulse 94 97 Oximetry - Reevaluation(s) Reevaluation #1: 08/10/18 14:54 Differential diagnosis, including but not limited to: GERD, gastritis, hiatal hernia, pancreatitis, pneumomediastinum, pneumothorax, mediastinitis, aortic disease, acute coronary syndrome Assessment and plan: 52-year-old gentleman with probable history of gastric ulcer disease presenting with epigastric pain and chest pain for a few weeks. He is afebrile with reassuring vital signs but on my initial examination for an comfortable and is moving around multiple physicians and is unable to find a position of comfort. His physical exam is otherwise benign, with a soft benign belly, equal pulses in upper, lower extremities. Highly doubt acute coronary syndrome; patient low risk by KHUSHBU score, heart score. Symptoms present for weeks, as per the [employer] medical policy, myocardial infarction may be excluded with 1 set of cardiac enzymes if symptoms have been present for greater than 8 hours. Patient at low risk for major adverse cardiac event. CT scan of the chest is pending, CT scan of abdomen and pelvis is pending, repeat EKG and troponin pending. Anticipate discharge. Reevaluation #2: 08/10/18 15:06 EKG #2 was appears to be unchanged. Reevaluation #3: 08/10/18 15:[address] Wright to follow up on repeat troponin and ct if negative would d.c to follow up with GI ED Medical Decision Making - Lab Data Result diagrams: 08/10/18 13:53 08/10/18 13:53 Vital Signs 08/10/18 13:33 Temperature 97.9 F Pulse Rate 89 Respiratory 22 Rate Blood Pressure 125/81 O2 Sat by Pulse 97 Oximetry Lab Results 08/10/18 08/10/18 Range/Units 13:53 13:53 WBC 8.5 (4.5-11.0) K/mm3 RBC 4.86 (3.65-5.03) M/mm3 Hgb 14.4 (11.8-15.2) gm/dl Hct 43.0 (35.5-45.6) % MCV 89 (84-94) fl MCH 30 (28-32) pg MCHC 33 (32-34) % RDW 17.7 H (13.2-15.2) % Plt Count 280 (140-440) K/mm3 Lymph % (Auto) 33.2 (13.4-35.0) % Thomas % (Auto) 7.7 H (0.0-7.3) % Eos % (Auto) 6.6 H (0.0-4.3) % Baso % (Auto) 1.3 (0.0-1.8) % Lymph # 2.8 (1.2-5.4) K/mm3 Thomas # 0.7 (0.0-0.8) K/mm3 Eos # 0.6 H (0.0-0.4) K/mm3 Baso # 0.1 (0.0-0.1) K/mm3 Seg Neutrophils % 51.2 (40.0-70.0) % Seg Neutrophils # 4.4 (1.8-7.7) K/mm3 Sodium 138 (137-145) mmol/L Potassium 4.2 (3.6-5.0) mmol/L Chloride 102.8 (98-107) mmol/L Carbon Dioxide 23 (22-30) mmol/L Anion Gap 16 mmol/L BUN 18 (9-20) mg/dL Creatinine 1.3 (0.8-1.5) mg/dL Estimated GFR > 60 ml/min BUN/Creatinine Ratio 14 % Glucose 116 H (75-100) mg/dL Calcium 9.8 (8.4-10.2) mg/dL Troponin T < 0.010 (0.00-0.029) ng/mL - EKG Data -: EKG Interpreted by Vt EKG shows normal: sinus rhythm Rate: normal - EKG Data When compared to previous EKG there are: no significant change 08/10/18 14:56 Sinus rhythm, 81 beats per minutes, normal axis, high left ventricular voltage, poor R-wave progression, abnormal EKG, this is not a STEMI, appears unchanged from prior EKG from April 2018. Critical care attestation.: If time is entered above; I have spent that time in minutes in the direct care of this critically ill patient, excluding procedure time. ED Disposition Clinical Impression: Epigastric abdominal pain Chest pain Qualifiers: Chest pain type: unspecified Qualified Code(s): R07.9 - Chest pain, unspecified Disposition: DC- TO HOME OR SELFCARE Does the pt Need Aspirin: No Condition: Good Instructions: Chest Pain (ED) Additional Instructions: Avoid consumption of Motrin, ibuprofen, Naprosyn, Aleve. Avoid consumption of heavy, spicy foods. Follow-up with a crate tier within the next 3-5 days. Follow up with a hospital admissions clerk within the next 7-10 days. Return to the ER right away with new pain, worsened pain, migration of pain, projectile vomiting, change in mental status, confusion, inability to tolerate liquid feeds. Prescriptions: Acetaminophen [Tylenol Arthritis] 650 mg PO Q6HR PRN #30 tablet.er PRN Reason: Pain Famotidine [Pepcid] 20 mg PO BID #60 tablet Ondansetron [Zofran Odt] 4 mg PO Q8HR PRN #20 tab.rapdis PRN Reason: Nausea Referrals: [facility] [Provider Group] - 3-5 Days [facility] [Provider Group] - 3-5 Days <CLYDE SCHULZ - Last Filed: 08/10/18 19:53> ED Course - Reevaluation(s) Reevaluation #4: 08/10/18 19:46 Patient care was transitioned to me at Dr. Weiss at shift change. Specifically, he wants me to check the result of the troponin level which is already pending and the results of this CT chest and abdomen and pelvis and if all normal to discharge patient home. Discharge instructions and prescription has already been done by Dr. Weiss. I did check the second troponin result, the CTA chest and CT abdomen and pelvis. They all came back negative. He will be discharged home as instructed by Dr. Weiss. He was discharged home in stable medical condition. ED Medical Decision Making - Lab Data Result diagrams: 08/10/18 13:53 08/10/18 13:53 ED Disposition Is pt being admited?: No Time of Disposition: 18:45
[2018-08-10] MEDS ORDERED: ALUM-MAG HYDROX-SIMETH 200-200-20MG/5ML PO ONE (15:27)
[2018-08-10] MEDS ORDERED: CARAFATE PO ONE (15:27)
[2018-08-10] MEDS ORDERED: XYLOCAINE CARDIAC IV ONE (15:34)
[2018-08-10] MEDS ORDERED: SUBLIMAZE IV ONE (15:52)
[2018-08-10] MEDS ORDERED: XYLOCAINE 1% INFILTRATI ONE (16:00)
[2018-08-10] MEDS ORDERED: NACL 0.9% INFILTRATI ONE (16:00)
--- NOTE | 2018-08-10 16:50 | Cat Scan Report ---
FINAL REPORT EXAM: CT ABDOMEN PELVIS W CON HISTORY: abd pain COMPARISON: None. TECHNIQUE: Multiple contiguous axial images were obtained from the lung bases to the pubic symphysis after administration of IV contrast. Reformatted sagittal and coronal images were available for review. FINDINGS: Lung bases: Normal. Visualized heart and mediastinum: Normal. Liver: Normal. Spleen: Normal. Small accessory splenules. Pancreas: Normal. Gallbladder and Biliary Tree: No calcified gallstones. No biliary ductal dilatation. Adrenal glands: Normal. Kidneys: Symmetric enhancement to both kidneys. Multiple simple appearing renal cysts of the right kidney. 5 millimeter low-density lesion of the left renal cortex, that may represent a cyst. Punctate densities in the bilateral upper aspects of the kidneys measuring up to 4 millimeters that may represent nonobstructing stones versus concentrated contrast. Bladder: Normal. Pelvic organs: Normal. Bowel: No focal wall thickening. No evidence of obstruction. Normal appendix without surrounding inflammatory change. Peritoneum: No significant mesenteric adenopathy. No free air or free fluid. Vasculature: Abdominal aorta is normal in caliber without evidence of aneurysm. Scattered atherosclerotic calcifications. Normal appearance of the inferior vena cava and portal venous system. Bones and soft tissues: No suspicious osseous lesions. No acute fracture or dislocation. There is a right hip arthroplasty. Degenerative changes at L5-S1. Small, fat containing periumbilical hernia. IMPRESSION: No acute intra-abdominal pathology. No bowel obstruction. Normal appendix. Simple appearing bilateral renal cysts. Punctate densities in the superior poles of the bilateral kidneys that may represent nonobstructing stones versus concentrated contrast.
--- NOTE | 2018-08-10 17:00 | Cat Scan Report ---
FINAL REPORT EXAM: CT ANGIO CHEST HISTORY: chest pain COMPARISON: None. TECHNIQUE: Multiple contiguous axial images were obtained from the thoracic inlet to the upper abdomen after administration of IV contrast. FINDINGS: Medical devices: None. Thyroid: Normal. Lymph nodes: No significant mediastinal, hilar, or axillary lymphadenopathy. Vasculature: Normal caliber of the thoracic aorta. Normal branching pattern of the aortic arch. Mild prominence of the main right and left pulmonary arteries, which is nonspecific, but may represent pulmonary hypertension. No filling defect to suggest pulmonary embolism. Heart: Normal heart size. Other mediastinal structures: Normal. Lung parenchyma: The lungs are clear without focal consolidation. No suspicious nodule or mass. Airways: Patent. No bronchiectasis. Pleura: No pleural effusion or pneumothorax. Chest wall and spine: No suspicious osseous lesion. No acute fracture or dislocation. Upper Abdomen: Normal. IMPRESSION: 1. No evidence of pulmonary embolism. 2. Mild enlargement of the right and left main pulmonary arteries, which is nonspecific, but can be seen in the setting of pulmonary hypertension.
[2018-08-10 17:39] VITALS: BP 130/81
== END 2018-08-10 17:40 | disposition home or self-care (01) ==
LOC: ED 13:27
DX: R10.13 Epigastric pain (principal); R07.89 Other chest pain; I10 Essential (primary) hypertension; K21.9 Gastro-esophageal reflux disease without esophagitis; G89.29 Other chronic pain; M54.9 Dorsalgia, unspecified
CPT/HCPCS: 36415; 71275; 74177; 80048; 83690; 84484; 85025; 93005; 93010; 96365; 96375; 99284; J1170; J2405; J3010; J7030; Q9967

== ENCOUNTER 2018-11-15 08:42 | Emergency (ER) | payer OTHER ==
--- NOTE | 2018-11-15 09:30 | Emergency Department Report ---
ED ENT HPI - General Chief complaint: Earache Stated complaint: BACK PAIN/BLOOD IN EAR Time Seen by Provider: 11/15/18 09:13 Source: patient Mode of arrival: Ambulatory Limitations: No Limitations - History of Present Illness Initial comments: Patient is a 53-year-old [place] male who is presenting with continued pain in the right ear. Patient has had pain in the right ear for approximately 3 weeks. Patient has a foul odor bloody discharge coming from the ear. Patient was here approximately 2 weeks ago and was given Ciprodex states symptoms are not improved. Patient states he thinks he needs to see an ear nose and throat doctor because the one he saw last week told him to discontinue to blow his nose. Patient also is complaining of some chronic back pain. - Related Data Home Medications Medication Instructions Recorded Confirmed Last Taken Ranitidine HCl [Acid Roll Panner] 150 mg PO BID 01/24/16 09/28/18 09/27/18 Previous Rx's Medication Instructions Recorded Last Taken Type ALBUTEROL Inhaler (OR & NICU) 2 puff IH QID PRN #1 inhalation 02/17/16 09/27/18 Rx [ProAir HFA Inhaler] Ibuprofen [Motrin 800 MG tab] 800 mg PO Q8HR PRN #40 tablet 03/05/16 Unknown Rx Cyclobenzaprine [Flexeril 10 MG 10 mg PO TID PRN #30 tablet 04/19/16 09/27/18 Rx TAB] Amitriptyline [Elavil] 25 mg PO QHS PRN #30 tab 01/16/17 Unknown Rx traMADol [Ultram 50 MG tab] 50 mg PO Q8HR PRN #30 tablet 01/16/17 09/27/18 Rx Atenolol [Tenormin] 25 mg PO DAILY #30 tablet 07/23/17 Unknown Rx hydroCHLOROthiazide [HCTZ] 25 mg PO DAILY #30 tablet 07/23/17 09/27/18 Rx Dicyclomine [Bentyl] 20 mg PO QID #14 tablet 12/22/17 Unknown Rx Sucralfate [Carafate] 1 gm PO Q6HR 30 Days udc 12/22/17 09/27/18 Rx Ibuprofen [Motrin] 600 mg PO Q8H PRN #30 tablet 01/05/18 Unknown Rx Neomycin/Polymyxin B Sulf/Hc 4 drop AU TID #1 drops.susp 07/10/18 Unknown Rx [NEOMY/POLY/HC 3.5mg/[id number]/10mg OTIC] traMADol [Ultram] 50 mg PO Q6HR PRN #24 tablet 07/10/18 09/27/18 Rx Famotidine [Pepcid] 20 mg PO BID #60 tablet 08/10/18 Unknown Rx Ibuprofen [Motrin] 600 mg PO Q8H PRN #20 tablet 09/13/18 Unknown Rx Benzonatate [Tessalon Perles] 100 mg PO Q8HR PRN #20 capsule 09/18/18 Unknown Rx Cipro/Dexameth 0.3/0.1% [Ciprodex 4 drops OT BID #1 bottle 10/28/18 Unknown Rx OTIC] Ciprofloxacin HCl [Cipro] 500 mg PO BID #28 tablet 10/28/18 Unknown Rx Neomy/Polymyx B/Hc (Otic) Soln 4 drops OT TID #1 bottle 11/15/18 Unknown Rx [Cortisporin (Otic) Soln] traMADol [Ultram] 50 mg PO Q6HR PRN #12 tablet 11/15/18 Unknown Rx Allergies Allergy/AdvReac Type Severity Reaction Status Date / Time No Known Allergies Allergy Verified 10/28/18 15:17 ED Dental HPI - General Chief complaint: Earache Stated complaint: BACK PAIN/BLOOD IN EAR Time Seen by Provider: 11/15/18 09:13 Source: patient Mode of arrival: Ambulatory Limitations: No Limitations - Related Data Home Medications Medication Instructions Recorded Confirmed Last Taken Ranitidine HCl [Acid Roll Panner] 150 mg PO BID 01/24/16 09/28/18 09/27/18 Previous Rx's Medication Instructions Recorded Last Taken Type ALBUTEROL Inhaler (OR & NICU) 2 puff IH QID PRN #1 inhalation 02/17/16 09/27/18 Rx [ProAir HFA Inhaler] Ibuprofen [Motrin 800 MG tab] 800 mg PO Q8HR PRN #40 tablet 03/05/16 Unknown Rx Cyclobenzaprine [Flexeril 10 MG 10 mg PO TID PRN #30 tablet 04/19/16 09/27/18 Rx TAB] Amitriptyline [Elavil] 25 mg PO QHS PRN #30 tab 01/16/17 Unknown Rx traMADol [Ultram 50 MG tab] 50 mg PO Q8HR PRN #30 tablet 01/16/17 09/27/18 Rx Atenolol [Tenormin] 25 mg PO DAILY #30 tablet 07/23/17 Unknown Rx hydroCHLOROthiazide [HCTZ] 25 mg PO DAILY #30 tablet 07/23/17 09/27/18 Rx Dicyclomine [Bentyl] 20 mg PO QID #14 tablet 12/22/17 Unknown Rx Sucralfate [Carafate] 1 gm PO Q6HR 30 Days udc 12/22/17 09/27/18 Rx Ibuprofen [Motrin] 600 mg PO Q8H PRN #30 tablet 01/05/18 Unknown Rx Neomycin/Polymyxin B Sulf/Hc 4 drop AU TID #1 drops.susp 07/10/18 Unknown Rx [NEOMY/POLY/HC 3.5mg/78107wvsvy/10mg OTIC] traMADol [Ultram] 50 mg PO Q6HR PRN #24 tablet 07/10/18 09/27/18 Rx Famotidine [Pepcid] 20 mg PO BID #60 tablet 08/10/18 Unknown Rx Ibuprofen [Motrin] 600 mg PO Q8H PRN #20 tablet 09/13/18 Unknown Rx Benzonatate [Tessalon Perles] 100 mg PO Q8HR PRN #20 capsule 09/18/18 Unknown Rx Cipro/Dexameth 0.3/0.1% [Ciprodex 4 drops OT BID #1 bottle 10/28/18 Unknown Rx OTIC] Ciprofloxacin HCl [Cipro] 500 mg PO BID #28 tablet 10/28/18 Unknown Rx Neomy/Polymyx B/Hc (Otic) Soln 4 drops OT TID #1 bottle 11/15/18 Unknown Rx [Cortisporin (Otic) Soln] traMADol [Ultram] 50 mg PO Q6HR PRN #12 tablet 11/15/18 Unknown Rx Allergies Allergy/AdvReac Type Severity Reaction Status Date / Time No Known Allergies Allergy Verified 10/28/18 15:17 ED Review of Systems ROS: Stated complaint: BACK PAIN/BLOOD IN EAR Other details as noted in HPI Comment: All other systems reviewed and negative ED Past Medical Hx - Past Medical History Hx Hypertension: Yes Hx GERD: Yes Additional medical history: CHRONIC BACK PAIN, Post right hip surgery 10/03/17 - Surgical History Past Surgical History?: Yes Additional Surgical History: right hip replacement - Social History Smoking Status: Current Every Day Smoker Substance Use Type: None - Medications Home Medications: Home Medications Medication Instructions Recorded Confirmed Last Taken Type Ranitidine HCl [Acid Roll Panner] 150 mg PO BID 01/24/16 09/28/18 09/27/18 History ALBUTEROL Inhaler (OR & NICU) 2 puff IH QID PRN #1 inhalation 02/17/16 09/28/18 09/27/18 Rx [ProAir HFA Inhaler] Ibuprofen [Motrin 800 MG tab] 800 mg PO Q8HR PRN #40 tablet 03/05/16 09/28/18 Unknown Rx Cyclobenzaprine [Flexeril 10 MG 10 mg PO TID PRN #30 tablet 04/19/16 09/28/18 09/27/18 Rx TAB] Amitriptyline [Elavil] 25 mg PO QHS PRN #30 tab 01/16/17 09/28/18 Unknown Rx traMADol [Ultram 50 MG tab] 50 mg PO Q8HR PRN #30 tablet 01/16/17 09/28/18 09/27/18 Rx Atenolol [Tenormin] 25 mg PO DAILY #30 tablet 07/23/17 09/28/18 Unknown Rx hydroCHLOROthiazide [HCTZ] 25 mg PO DAILY #30 tablet 07/23/17 09/28/18 09/27/18 Rx Dicyclomine [Bentyl] 20 mg PO QID #14 tablet 12/22/17 09/28/18 Unknown Rx Sucralfate [Carafate] 1 gm PO Q6HR 30 Days udc 12/22/17 09/28/18 09/27/18 Rx Ibuprofen [Motrin] 600 mg PO Q8H PRN #30 tablet 01/05/18 09/28/18 Unknown Rx Neomycin/Polymyxin B Sulf/Hc 4 drop AU TID #1 drops.susp 07/10/18 09/28/18 Unknown Rx [NEOMY/POLY/HC 3.5mg/29179yorlg/10mg OTIC] traMADol [Ultram] 50 mg PO Q6HR PRN #24 tablet 07/10/18 09/28/18 09/27/18 Rx Famotidine [Pepcid] 20 mg PO BID #60 tablet 08/10/18 09/28/18 Unknown Rx Ibuprofen [Motrin] 600 mg PO Q8H PRN #20 tablet 09/13/18 09/28/18 Unknown Rx Benzonatate [Tessalon Perles] 100 mg PO Q8HR PRN #20 capsule 09/18/18 09/28/18 Unknown Rx Cipro/Dexameth 0.3/0.1% [Ciprodex 4 drops OT BID #1 bottle 10/28/18 Unknown Rx OTIC] Ciprofloxacin HCl [Cipro] 500 mg PO BID #28 tablet 10/28/18 Unknown Rx Neomy/Polymyx B/Hc (Otic) Soln 4 drops OT TID #1 bottle 11/15/18 Unknown Rx [Cortisporin (Otic) Soln] traMADol [Ultram] 50 mg PO Q6HR PRN #12 tablet 11/15/18 Unknown Rx ED Physical Exam - General Limitations: No Limitations General appearance: alert, in no apparent distress - Head Head exam: Present: atraumatic, normocephalic - Eye Eye exam: Present: normal appearance - ENT ENT exam: Present: mucous membranes moist, TM's normal bilaterally (R external canal: patient does have in the 6 o'clock position just adjacent to the TM area that is erythematous with some hypertrophy and possible mass. There is some dried blood in this area.) - Neck Neck exam: Present: normal inspection - Respiratory Respiratory exam: Present: normal lung sounds bilaterally. Absent: respiratory distress, wheezes, rales, rhonchi - Cardiovascular Cardiovascular Exam: Present: regular rate, normal rhythm. Absent: systolic murmur, diastolic murmur, rubs, gallop - GI/Abdominal GI/Abdominal exam: Present: soft, normal bowel sounds - Rectal Rectal exam: Present: deferred - Extremities Exam Extremities exam: Present: normal inspection - Back Exam Back exam: Present: normal inspection - Neurological Exam Neurological exam: Present: alert, oriented X3 - Psychiatric Psychiatric exam: Present: normal affect, normal mood - Skin Skin exam: Present: warm, dry, intact, normal color. Absent: rash ED Course Vital Signs 11/15/18 08:58 Temperature 98.3 F Pulse Rate 72 Blood Pressure 163/95 O2 Sat by Pulse 98 Oximetry ED Medical Decision Making - Medical Decision Making Patient to continue with Ciprodex and also started on Cortisporin. Patient referred to Dr. Ernandez ENT. Critical care attestation.: If time is entered above; I have spent that time in minutes in the direct care of this critically ill patient, excluding procedure time. ED Disposition Clinical Impression: Otitis external Disposition: [id number] TO HOME OR SELFCARE Is pt being admited?: No Does the pt Need Aspirin: No Condition: Stable Additional Instructions: Please follow-up with the ENT doctor that was given on this paperwork. Need further evaluation from ear nose and throat doctor. A mass or tumor cannot be ruled out causing your pain and persistent bloody drainage. Referrals: MORALES SANABRIA MD [Staff Physician] - 3-5 Days Time of Disposition: 09:32
== END 2018-11-15 09:44 | disposition home or self-care (01) ==
LOC: ED 08:42
CPT/HCPCS: 99281

== ENCOUNTER 2019-03-25 00:42 | Emergency (ER) | payer OTHER ==
[2019-03-25] MEDS ORDERED: CARAFATE PO ONE (01:34)
[2019-03-25] MEDS ORDERED: ZOFRAN ODT ONE (01:34)
[2019-03-25] MEDS ORDERED: ZOFRAN ODT PO ONE (01:35)
[2019-03-25 01:52] LABS: Basophils # (Auto) 0.1 K/mm3 (0.0-0.1); Basophils % (Auto) 0.8 % (0.0-1.8); Eosinophils # (Auto) 0.3 K/mm3 (0.0-0.4); Eosinophils % (Auto) 3.6 % (0.0-4.3); Hematocrit 40.3 % (35.5-45.6); Hemoglobin 13.5 gm/dl (11.8-15.2); Lymphocytes # (Auto) 2.7 K/mm3 (1.2-5.4); Lymphocytes % (Auto) 29.4 % (13.4-35.0); Mean Corpuscular HGB Conc 34 % (32-34); Mean Corpuscular Volume 89 fl (84-94); Monocytes % (Auto) 10.5 % (0.0-7.3); Platelet Count 358 K/mm3 (140-440); Red Blood Count 4.51 M/mm3 (3.65-5.03); Red Cell Distribution Width 18.3 % (13.2-15.2)
[2019-03-25 02:04] LABS: Bilirubin,Urine NEG (Negative); Blood,Urine NEG (Negative); Color,Urine Yellow (Yellow); Mucus,Urine FEW /HPF; Protein,Urine <15 mg/dL mg/dL (Negative); Urobilinogen,Urine < 2.0 mg/dL (<2.0); WBC,Urine < 1.0 /HPF (0.0-6.0)
[2019-03-25 02:13] LABS: Alanine Aminotransferase 13 units/L (7-56); Albumin 4.3 g/dL (3.9-5); BUN/Creatinine Ratio 25; Blood Urea Nitrogen 30 mg/dL (9-20); Calcium 9.4 mg/dL (8.4-10.2); Hemolysis Index 17
[2019-03-25] MEDS ORDERED: ZOFRAN IV ONE (03:31)
[2019-03-25] MEDS ORDERED: NACL 0.9% 1000 ML 1,000 ML IV ONE (03:31)
[2019-03-25] MEDS ORDERED: DILAUDID IV ONE (03:31)
[2019-03-25] MEDS ORDERED: PEPCID IV ONE (03:31)
--- NOTE | 2019-03-25 03:33 | Emergency Department Report ---
ED General Adult HPI - General Chief complaint: Abdominal Pain Stated complaint: ABD PAIN Time Seen by Provider: 03/25/19 03:25 Source: patient, RN notes reviewed, old records reviewed Mode of arrival: Ambulatory Limitations: No Limitations - History of Present Illness Initial comments: This is a 53-year-old gentleman. I have evaluated this patient in the past. His past history includes GERD, gastritis. The patient does not have a local primary care doctor. He reports he supposed to follow-up at [facility]. He presents to the emergency room with a complaint of nontraumatic supraumbilical abdominal pain. The pain is aching, cramping, and constant. It is present on and off for one week. There is nonbloody, nonbilious coughing up, spitting up. There is no chest pain. There is no testicular pain. No irritative or obstructive urinary symptoms. Patient reports this feels similar to prior episodes of GERD, gastritis. The patient denies DVT, pulmonary embolus risk factors. He denies diaphoresis, exertional shortness of breath. His symptoms are markedly improved with hydromorphone administration in the emergency room. The patient had an upper endoscopy performed by Dr. Medellin, one of our consulting pickling tank operator at this facility, which showed esophagitis, and a healing gastric ulcer. -: Gradual Location: abdomen Radiation: non-radiation Quality: burning, stabbing, aching Consistency: other Improves with: other Worsens with: other - Related Data Home Medications Medication Instructions Recorded Confirmed Last Taken Ranitidine HCl [Acid Quality Systems Technician] 150 mg PO BID 01/24/16 09/28/18 09/27/18 Previous Rx's Medication Instructions Recorded Last Taken Type ALBUTEROL Inhaler (OR & NICU) 2 puff IH QID PRN #1 inhalation 02/17/16 09/27/18 Rx [ProAir HFA Inhaler] Cyclobenzaprine [Flexeril 10 MG 10 mg PO TID PRN #30 tablet 04/19/16 09/27/18 Rx TAB] Amitriptyline [Elavil] 25 mg PO QHS PRN #30 tab 01/16/17 Unknown Rx traMADol [Ultram 50 MG tab] 50 mg PO Q8HR PRN #30 tablet 01/16/17 09/27/18 Rx Atenolol [Tenormin] 25 mg PO DAILY #30 tablet 07/23/17 Unknown Rx hydroCHLOROthiazide [HCTZ] 25 mg PO DAILY #30 tablet 07/23/17 09/27/18 Rx Neomycin/Polymyxin B Sulf/Hc 4 drop AU TID #1 drops.susp 07/10/18 Unknown Rx [NEOMY/POLY/HC 3.5mg/84391cdrqu/10mg OTIC] traMADol [Ultram] 50 mg PO Q6HR PRN #24 tablet 07/10/18 09/27/18 Rx Famotidine [Pepcid] 20 mg PO BID #60 tablet 08/10/18 Unknown Rx Benzonatate [Tessalon Perles] 100 mg PO Q8HR PRN #20 capsule 09/18/18 Unknown Rx Cipro/Dexameth 0.3/0.1% [Ciprodex 4 drops OT BID #1 bottle 10/28/18 Unknown Rx OTIC] Ciprofloxacin HCl [Cipro] 500 mg PO BID #28 tablet 10/28/18 Unknown Rx Neomy/Polymyx B/Hc (Otic) Soln 4 drops OT TID #1 bottle 11/15/18 Unknown Rx [Cortisporin (Otic) Soln] traMADol [Ultram] 50 mg PO Q6HR PRN #12 tablet 11/15/18 Unknown Rx Dicyclomine [Bentyl] 20 mg PO QID #14 tablet 03/25/19 Unknown Rx Ondansetron [Zofran Odt] 4 mg PO Q8HR PRN #20 tab.rapdis 03/25/19 Unknown Rx Pantoprazole [Protonix TAB] 20 mg PO QDAY #30 tablet. 03/25/19 Unknown Rx Sucralfate [Carafate] 1 gm PO Q6HR 30 Days udc 03/25/19 Unknown Rx Allergies Allergy/AdvReac Type Severity Reaction Status Date / Time No Known Allergies Allergy Verified 10/28/18 15:17 ED Review of Systems ROS: Stated complaint: ABD PAIN Other details as noted in HPI Constitutional: weakness. denies: fever Eyes: eye discharge. denies: vision change Respiratory: denies: cough, shortness of breath Cardiovascular: denies: chest pain, palpitations, dyspnea on exertion, syncope Gastrointestinal: abdominal pain, nausea Genitourinary: denies: urgency, dysuria, testicular pain Musculoskeletal: denies: back pain Skin: denies: lesions Neurological: weakness Psychiatric: anxiety ED Past Medical Hx - Past Medical History Hx Hypertension: Yes Hx GERD: Yes Additional medical history: CHRONIC BACK PAIN, Post right hip surgery 10/03/17 - Surgical History Additional Surgical History: right hip replacement - Social History Smoking Status: Current Every Day Smoker Substance Use Type: None - Medications Home Medications: Home Medications Medication Instructions Recorded Confirmed Last Taken Type Ranitidine HCl [Acid Quality Systems Technician] 150 mg PO BID 01/24/16 09/28/18 09/27/18 History ALBUTEROL Inhaler (OR & NICU) 2 puff IH QID PRN #1 inhalation 02/17/16 09/28/18 09/27/18 Rx [ProAir HFA Inhaler] Cyclobenzaprine [Flexeril 10 MG 10 mg PO TID PRN #30 tablet 04/19/16 09/28/18 09/27/18 Rx TAB] Amitriptyline [Elavil] 25 mg PO QHS PRN #30 tab 01/16/17 09/28/18 Unknown Rx traMADol [Ultram 50 MG tab] 50 mg PO Q8HR PRN #30 tablet 01/16/17 09/28/18 09/27/18 Rx Atenolol [Tenormin] 25 mg PO DAILY #30 tablet 07/23/17 09/28/18 Unknown Rx hydroCHLOROthiazide [HCTZ] 25 mg PO DAILY #30 tablet 07/23/17 09/28/18 09/27/18 Rx Neomycin/Polymyxin B Sulf/Hc 4 drop AU TID #1 drops.susp 07/10/18 09/28/18 Un known Rx [NEOMY/POLY/HC 3.5mg/55489pcmck/10mg OTIC] traMADol [Ultram] 50 mg PO Q6HR PRN #24 tablet 07/10/18 09/28/18 09/27/18 Rx Famotidine [Pepcid] 20 mg PO BID #60 tablet 08/10/18 09/28/18 Unknown Rx Benzonatate [Tessalon Perles] 100 mg PO Q8HR PRN #20 capsule 09/18/18 09/28/18 U nknown Rx Cipro/Dexameth 0.3/0.1% [Ciprodex 4 drops OT BID #1 bottle 10/28/18 Unknown Rx OTIC] Ciprofloxacin HCl [Cipro] 500 mg PO BID #28 tablet 10/28/18 Unknown Rx Neomy/Polymyx B/Hc (Otic) Soln 4 drops OT TID #1 bottle 11/15/18 Unknown Rx [Cortisporin (Otic) Soln] traMADol [Ultram] 50 mg PO Q6HR PRN #12 tablet 11/15/18 Unknown Rx Dicyclomine [Bentyl] 20 mg PO QID #14 tablet 03/25/19 Unknown Rx Ondansetron [Zofran Odt] 4 mg PO Q8HR PRN #20 tab.rapdis 03/25/19 Unknown Rx Pantoprazole [Protonix TAB] 20 mg PO QDAY #30 tablet. 03/25/19 Unknown Rx Sucralfate [Carafate] 1 gm PO Q6HR 30 Days udc 03/25/19 Unknown Rx ED Physical Exam - General Limitations: No Limitations General appearance: alert, anxious, in distress - Head Head exam: Present: atraumatic, normocephalic - Eye Eye exam: Present: normal appearance, EOMI. Absent: nystagmus - ENT ENT exam: Present: normal exam, normal orophraynx, mucous membranes moist, normal external ear exam - Neck Neck exam: Present: normal inspection, full ROM. Absent: tenderness, meningismus - Respiratory Respiratory exam: Present: normal lung sounds bilaterally. Absent: respiratory distress - Cardiovascular Cardiovascular Exam: Present: normal rhythm, tachycardia, normal heart sounds. Absent: bradycardia, systolic murmur, diastolic murmur, rubs, gallop - GI/Abdominal GI/Abdominal exam: Present: soft. Absent: distended, tenderness, guarding, rebound, rigid, pulsatile mass - Rectal Rectal exam: Present: deferred - Extremities Exam Extremities exam: Present: normal inspection, full ROM, other (2+ pulses noted in the bilateral upper, lower extremities. Compartments soft. No long bony tenderness. The pelvis is stable.). Absent: pedal edema, joint swelling, calf tenderness - Back Exam Back exam: Present: normal inspection, full ROM. Absent: tenderness, CVA tenderness (R), CVA tenderness (L), paraspinal tenderness, vertebral tenderness - Neurological Exam Neurological exam: Present: alert, oriented X3, other (Extraocular movements intact. Tongue midline. No facial droop. Facial sensation intact to light touch in the V1, V2, V3 distribution bilaterally. 5 and 5 strength in 4 extremities.. Sensation is intact to light touch in 4 extremities.). Absent: motor sensory deficit - Psychiatric Psychiatric exam: Present: anxious - Skin Skin exam: Present: warm, dry, intact, normal color. Absent: rash ED Course Vital Signs 03/25/19 03/25/19 03/25/19 01:06 03:30 03:47 Temperature 98.4 F 98.2 F Pulse Rate 102 H 95 H Respiratory 18 12 18 Rate Blood Pressure 135/92 Blood Pressure 156/96 [Left] O2 Sat by Pulse 98 99 Oximetry 03/25/19 03/25/19 04:30 05:56 Temperature 98 F Pulse Rate 85 Respiratory 15 18 Rate Blood Pressure Blood Pressure 132/86 [Left] O2 Sat by Pulse 96 Oximetry - Reevaluation(s) Reevaluation #1: 03/25/19 04:40 Differential diagnosis, including not limited to: AAA, pancreatitis, constipation, cyclic vomiting syndrome, narcotic bowel syndrome, GERD, gastritis, irritable bowel disease, inflammatory bowel disease Assessment and plan: 53-year-old gentleman with recurrent complaint of abdominal pain. This patient has been evaluated by myself in the past for similar complaints. His objective laboratory testing is essentially unremarkable. He is not especially hypertensive, endorses no chest pain, he has no pulsatile abdominal mass, and he has equal pulses in the upper, lower extremities. Favor diagnosis of functional abdominal pain. CT scan of the abdomen and pelvis has been ordered. Patient currently resting comfortable, in stretcher, and in no acute distress. Reevaluation #2: 03/25/19 04:41 On initial assessment, the patient was hyperverbal, and hyperventilating. This is the most likely explanation for his decrease in CO2. Reevaluation #3: 03/25/19 05:40 CT scan with no acute pathology. Multiple incidental findings Noted. Patient will be discharged with instructions to follow up. Reevaluation #4: 03/25/19 05:47 Patient feels improved. Smiling and laughing and talking to staff members. He is in no acute distress. I have counseled patient on his need to follow up with outpatient gastroenterology. He verbalizes understanding. ED Medical Decision Making - Lab Data Result diagrams: 03/25/19 01:32 03/25/19 01:32 Vital Signs 03/25/19 03/25/19 03/25/19 01:06 03:30 03:47 Temperature 98.4 F 98.2 F Pulse Rate 102 H 95 H Respiratory 18 12 18 Rate Blood Pressure 135/92 Blood Pressure 156/96 [Left] O2 Sat by Pulse 98 99 Oximetry Lab Results 03/25/19 03/25/19 03/25/19 Range/Units 01:32 01:32 01:39 WBC 9.1 (4.5-11.0) K/mm3 RBC 4.51 (3.65-5.03) M/mm3 Hgb 13.5 (11.8-15.2) gm/dl Hct 40.3 (35.5-45.6) % MCV 89 (84-94) fl MCH 30 (28-32) pg MCHC 34 (32-34) % RDW 18.3 H (13.2-15.2) % Plt Count 358 (140-440) K/mm3 Lymph % (Auto) 29.4 (13.4-35.0) % Loup % (Auto) 10.5 H (0.0-7.3) % Eos % (Auto) 3.6 (0.0-4.3) % Baso % (Auto) 0.8 (0.0-1.8) % Lymph # 2.7 (1.2-5.4) K/mm3 Loup # 1.0 H (0.0-0.8) K/mm3 Eos # 0.3 (0.0-0.4) K/mm3 Baso # 0.1 (0.0-0.1) K/mm3 Seg Neutrophils % 55.7 (40.0-70.0) % Seg Neutrophils # 5.1 (1.8-7.7) K/mm3 Sodium 133 L (137-145) mmol/L Potassium 4.3 (3.6-5.0) mmol/L Chloride 99.4 (98-107) mmol/L Carbon Dioxide 18 L (22-30) mmol/L Anion Gap 20 mmol/L BUN 30 H (9-20) mg/dL Creatinine 1.2 (0.8-1.5) mg/dL Estimated GFR > 60 ml/min BUN/Creatinine Ratio 25 % Glucose 142 H (75-100) mg/dL Calcium 9.4 (8.4-10.2) mg/dL Total Bilirubin 0.20 (0.1-1.2) mg/dL AST 18 (5-40) units/L ALT 13 (7-56) units/L Alkaline Phosphatase 75 (35-129) units/L Total Protein 7.9 (6.3-8.2) g/dL Albumin 4.3 (3.9-5) g/dL Albumin/Globulin Ratio 1.2 % Lipase (13-60) units/L Urine Color Yellow (Yellow) Urine Turbidity Clear (Clear) Urine pH 5.0 (5.0-7.0) Ur Specific Boykins 1.030 (1.003-1.030) Urine Protein <15 mg/dl (Negative) mg/dL Urine Glucose (UA) Neg (Negative) mg/dL Urine Ketones Neg (Negative) mg/dL Urine Blood Neg (Negative) Urine Nitrite Neg (Negative) Urine Bilirubin Neg (Negative) Urine Urobilinogen < 2.0 (<2.0) mg/dL Ur Leukocyte Esterase Neg (Negative) Urine WBC (Auto) < 1.0 (0.0-6.0) /HPF Urine RBC (Auto) 2.0 (0.0-6.0) /HPF Urine Mucus Few /HPF 03/25/19 Range/Units 03:34 WBC (4.5-11.0) K/mm3 RBC (3.65-5.03) M/mm3 Hgb (11.8-15.2) gm/dl Hct (35.5-45.6) % MCV (84-94) fl MCH (28-32) pg MCHC (32-34) % RDW (13.2-15.2) % Plt Count (140-440) K/mm3 Lymph % (Auto) (13.4-35.0) % Loup % (Auto) (0.0-7.3) % Eos % (Auto) (0.0-4.3) % Baso % (Auto) (0.0-1.8) % Lymph # (1.2-5.4) K/mm3 Loup # (0.0-0.8) K/mm3 Eos # (0.0-0.4) K/mm3 Baso # (0.0-0.1) K/mm3 Seg Neutrophils % (40.0-70.0) % Seg Neutrophils # (1.8-7.7) K/mm3 Sodium (137-145) mmol/L Potassium (3.6-5.0) mmol/L Chloride (98-107) mmol/L Carbon Dioxide (22-30) mmol/L Anion Gap mmol/L BUN (9-20) mg/dL Creatinine (0.8-1.5) mg/dL Estimated GFR ml/min BUN/Creatinine Ratio % Glucose (75-100) mg/dL Calcium (8.4-10.2) mg/dL Total Bilirubin (0.1-1.2) mg/dL AST (5-40) units/L ALT (7-56) units/L Alkaline Phosphatase (35-129) units/L Total Protein (6.3-8.2) g/dL Albumin (3.9-5) g/dL Albumin/Globulin Ratio % Lipase 87 H (13-60) units/L Urine Color (Yellow) Urine Turbidity (Clear) Urine pH (5.0-7.0) Ur Specific Boykins (1.003-1.030) Urine Protein (Negative) mg/dL Urine Glucose (UA) (Negative) mg/dL Urine Ketones (Negative) mg/dL Urine Blood (Negative) Urine Nitrite (Negative) Urine Bilirubin (Negative) Urine Urobilinogen (<2.0) mg/dL Ur Leukocyte Esterase (Negative) Urine WBC (Auto) (0.0-6.0) /HPF Urine RBC (Auto) (0.0-6.0) /HPF Urine Mucus /HPF - EKG Data -: EKG Interpreted by Nc EKG shows normal: sinus rhythm - EKG Data 03/25/19 04:41 EKG shows a sinus rhythm, 96 bpm, normal axis, borderline left ventricular hypertrophy, QTC prolonged, abnormal EKG, not consistent with ST elevation myocardial infarction, appears to be unchanged from prior EKG from July 2018. This EKG is not consistent with ST elevation myocardial infarction. - Radiology Data Radiology results: pending, report reviewed, image reviewed nt Report Referring Physician: JUANCHO WEISS Patient Name: RAY CARDENAS Date of : 1965 Sex: Male Report Date: 2019-03-25 Report Status: Finalized Findings [facility] [address] [place] [address] Cat Scan Report Signed Patient: RAY CARDENAS MR#: [id number] : 1965 Acct:[id number] Age/Sex: 53 / M ADM Date: 03/25/19 Loc: ED Attending Dr: Ordering Physician: JUANCHO WEISS MD Date of Service: 03/25/19 Procedure(s): CT abdomen pelvis w con Accession Number(s): [id number] cc: JUANCHO WEISS MD PROCEDURE: CT ABDOMEN PELVIS W CON HISTORY: abd pain htn back pain FINDINGS: Contrast enhanced CT of the abdomen and pelvis was performed and compared to the prior examination of August 10, 2018. The heart is normal in size. The lung bases appear clear. ABDOMEN: There is fatty infiltration of the liver without suspect focal hepatic lesion. The spleen is normal in size. There is a splenule. No focal pancreatic lesion is seen. The gallbladder is within normal limits. There is a right adrenal nodule, 1.4 x 1.0 cm, unchanged. This is hyperdense to the right adrenal and therefore does not clearly represent an adenoma. In this patient with hypertension, pheochromocytoma is not excluded. Correlation with urine catecholamines is recommended. There is a left adrenal nodule, 1.7 x 1.3 cm, also unchanged in size and likely adenoma. There are small bilateral nonobstructing renal calculi. No ureteral calculus or hydronephrosis is seen. There are right renal cysts. There are single bilateral renal arteries. There is no evidence of renal artery stenosis There is aortic atherosclerotic change without aneurysmal dilation of the aorta. There is a small fat-containing umbilical hernia. Pelvis: There is a normal appendix. There is no evidence of diverticulitis. The urinary bladder is within normal limits. There has been a right hip replacement. There is a vacuum disc at L5-S1. There is endplate remodeling at this level resulting in mild bilateral neural foraminal narrowing without nerve root impingement. Impression: ABDOMEN: Hyperdense right adrenal nodule, not characterized but unchanged from prior examination of August 10, 2018. In this patient with hypertension, pheochromocytoma is not excluded Left adrenal nodule, also unchanged, consistent with adenoma Small bilateral nonobstructing renal calculi Pelvis: Normal appendix This document is electronically signed by Roberth Anderson MD., Mar 25 2019 05:37:11 AM ET Transcribed By: KAY Dictated By: ROBERTH ANDERSON MD Electronically Authenticated By: ROBERTH ANDERSON MD Signed Date/Time: 03/25/19 0539 Critical care attestation.: If time is entered above; I have spent that time in minutes in the direct care of this critically ill patient, excluding procedure time. ED Disposition Clinical Impression: History of esophagitis, Abdominal pain Disposition: DC-01 TO HOME OR SELFCARE Is pt being admited?: No Does the pt Need Aspirin: No Condition: Stable Additional Instructions: Avoid consumption of Motrin, ibuprofen, Naprosyn, Aleve, heavy, spicy foods. Take the prescribed medications as needed/directed. Follow-up with her pickling tank operator Dr. Medellin, or one of his colleagues, within the next 7 days. Return to the emergency room right away with new pain, worsened pain, migration of pain, projectile vomiting, change in mental status, confusion, inability to tolerate liquid feeds, new, worsening or different symptoms. CT scan of the abdomen and pelvis demonstrated incidental nonemergent findings which should be followed up by a primary care doctor. Please have a primary care doctor contact the medical records department to obtain medical records, after further follow-up incidental nonemergent findings. Prescriptions: Dicyclomine [Bentyl] 20 mg PO QID #14 tablet Sucralfate [Carafate] 1 gm PO Q6HR 30 Days udc Pantoprazole [Protonix TAB] 20 mg PO QDAY #30 tablet. Ondansetron [Zofran Odt] 4 mg PO Q8HR PRN #20 tab.rapdis PRN Reason: Nausea Referrals: SUSAN MEDELLIN MD [Staff Physician] - 3-5 Days [facility] [Provider Group] - 3-5 Days
[2019-03-25] MEDS ORDERED: BENTYL PO ONE (05:23)
[2019-03-25] MEDS ORDERED: PROTONIX IV ONE (05:24)
--- NOTE | 2019-03-25 05:39 | Cat Scan Report ---
PROCEDURE: CT ABDOMEN PELVIS W CON HISTORY: abd pain htn back pain FINDINGS: Contrast enhanced CT of the abdomen and pelvis was performed and compared to the prior exam ination of August 10, 2018. The heart is normal in size. The lung bases appear clear. ABDOMEN: There is fatty infiltration of the liver without suspect focal hepatic lesion. The spleen is normal in size. There is a splenule. No focal pancreatic lesion is seen. The gallbladder is within normal limits. There is a right adrenal nodule, 1.4 x 1.0 cm, unchanged. This is hyperdense to the right adrenal and therefore does not clearly represent an adenoma. In this patient with hypertension, pheochromocytoma is not excluded. Correlation with urine catecholamines is recommended. There is a left adrenal nodule, 1.7 x 1.3 cm, also unchanged in size and likely adenoma. There are small bilateral nonobstructing renal calculi. No ureteral calculus or hydronephrosis is see n. There are right renal cysts. There are single bilateral renal arteries. There is no evidence of re nal artery stenosis There is aortic atherosclerotic change without aneurysmal dilation of the aorta. There is a small fat -containing umbilical hernia. Pelvis: There is a normal appendix. There is no evidence of diverticulitis. The urinary bladder is within normal limits. There has been a right hip replacement. There is a vacuum disc at L5-S1. There is endplate remodeling at this level resulting in mild bilater al neural foraminal narrowing without nerve root impingement. Impression: ABDOMEN: Hyperdense right adrenal nodule, not characterized but unchanged from prior examination of Susi ceballos 2017. In this patient with hypertension, pheochromocytoma is not excluded Left adrenal nodule, also unchanged, consistent with adenoma Small bilateral nonobstructing renal calculi Pelvis: Normal appendix This document is electronically signed by Roberth Anderson MD., Mar 25 2019 05:37:11 AM ET
[2019-03-25 05:56] VITALS: BP 132/86
== END 2019-03-25 05:57 | disposition home or self-care (01) ==
LOC: ED 00:42
DX: R10.13 Epigastric pain (principal); I10 Essential (primary) hypertension; K21.9 Gastro-esophageal reflux disease without esophagitis; F17.200 Nicotine dependence, unspecified, uncomplicated
CPT/HCPCS: 36415; 74177; 80053; 81001; 83690; 85025; 93005; 93010; 96374; 96375; 99284; C9113; J1170; J2405; J7030; Q9967; Q0162

== ENCOUNTER 2019-04-08 23:42 | Emergency (ER) | payer OTHER ==
--- NOTE | 2019-04-09 02:12 | Emergency Department Report ---
- General Chief complaint: Skin/Abscess/Foreign Body Stated complaint: ABSCESS RT FACE Time Seen by Provider: 04/09/19 01:25 Source: patient Mode of arrival: Ambulatory Limitations: No Limitations - History of Present Illness Initial comments: pt is a 53 yo male who presents to the ED with c/o an abscess in front of the right ear that began a month ago. he states it increased in size over the last three days. He denies any fever or drainage. The patient states he has been taking amoxicillin prescribed by his dentist for a dental issue. He states that on the left side in front of the left ear he had a I&D performed previously. he states he does shave his face. PMHx HTN. no allergies. - Related Data Home Medications Medication Instructions Recorded Confirmed Last Taken Ranitidine HCl [Acid Informatics Developer] 150 mg PO BID 01/24/16 09/28/18 09/27/18 Previous Rx's Medication Instructions Recorded Last Taken Type ALBUTEROL Inhaler (OR & NICU) 2 puff IH QID PRN #1 inhalation 02/17/16 09/27/18 Rx [ProAir HFA Inhaler] Cyclobenzaprine [Flexeril 10 MG 10 mg PO TID PRN #30 tablet 04/19/16 09/27/18 Rx TAB] Amitriptyline [Elavil] 25 mg PO QHS PRN #30 tab 01/16/17 Unknown Rx traMADol [Ultram 50 MG tab] 50 mg PO Q8HR PRN #30 tablet 01/16/17 09/27/18 Rx Atenolol [Tenormin] 25 mg PO DAILY #30 tablet 07/23/17 Unknown Rx hydroCHLOROthiazide [HCTZ] 25 mg PO DAILY #30 tablet 07/23/17 09/27/18 Rx Neomycin/Polymyxin B Sulf/Hc 4 drop AU TID #1 drops.susp 07/10/18 Unknown Rx [NEOMY/POLY/HC 3.5mg/93355hjilr/10mg OTIC] traMADol [Ultram] 50 mg PO Q6HR PRN #24 tablet 07/10/18 09/27/18 Rx Famotidine [Pepcid] 20 mg PO BID #60 tablet 08/10/18 Unknown Rx Benzonatate [Tessalon Perles] 100 mg PO Q8HR PRN #20 capsule 09/18/18 Unknown Rx Cipro/Dexameth 0.3/0.1% [Ciprodex 4 drops OT BID #1 bottle 10/28/18 Unknown Rx OTIC] Ciprofloxacin HCl [Cipro] 500 mg PO BID #28 tablet 10/28/18 Unknown Rx Neomy/Polymyx B/Hc (Otic) Soln 4 drops OT TID #1 bottle 11/15/18 Unknown Rx [Cortisporin (Otic) Soln] traMADol [Ultram] 50 mg PO Q6HR PRN #12 tablet 11/15/18 Unknown Rx Dicyclomine [Bentyl] 20 mg PO QID #14 tablet 03/25/19 Unknown Rx Ondansetron [Zofran Odt] 4 mg PO Q8HR PRN #20 tab.rapdis 03/25/19 Unknown Rx Pantoprazole [Protonix TAB] 20 mg PO QDAY #30 tablet. 03/25/19 Unknown Rx Sucralfate [Carafate] 1 gm PO Q6HR 30 Days udc 03/25/19 Unknown Rx Allergies Allergy/AdvReac Type Severity Reaction Status Date / Time No Known Allergies Allergy Verified 10/28/18 15:17 Abscess Boil HPI - HPI Chief Complaint: Skin/Abscess/Foreign Body Stated Complaint: ABSCESS RT FACE Time Seen by Provider: 04/09/19 01:25 Home Medications: Home Medications Medication Instructions Recorded Confirmed Last Taken Ranitidine HCl [Acid Informatics Developer] 150 mg PO BID 01/24/16 09/28/18 09/27/18 Previous Rx's Medication Instructions Recorded Last Taken Type ALBUTEROL Inhaler (OR & NICU) 2 puff IH QID PRN #1 inhalation 02/17/16 09/27/18 Rx [ProAir HFA Inhaler] Cyclobenzaprine [Flexeril 10 MG 10 mg PO TID PRN #30 tablet 04/19/16 09/27/18 Rx TAB] Amitriptyline [Elavil] 25 mg PO QHS PRN #30 tab 01/16/17 Unknown Rx traMADol [Ultram 50 MG tab] 50 mg PO Q8HR PRN #30 tablet 01/16/17 09/27/18 Rx Atenolol [Tenormin] 25 mg PO DAILY #30 tablet 07/23/17 Unknown Rx hydroCHLOROthiazide [HCTZ] 25 mg PO DAILY #30 tablet 07/23/17 09/27/18 Rx Neomycin/Polymyxin B Sulf/Hc 4 drop AU TID #1 drops.susp 07/10/18 Unknown Rx [NEOMY/POLY/HC 3.5mg/59725pgsqc/10mg OTIC] traMADol [Ultram] 50 mg PO Q6HR PRN #24 tablet 07/10/18 09/27/18 Rx Famotidine [Pepcid] 20 mg PO BID #60 tablet 08/10/18 Unknown Rx Benzonatate [Tessalon Perles] 100 mg PO Q8HR PRN #20 capsule 09/18/18 Unknown Rx Cipro/Dexameth 0.3/0.1% [Ciprodex 4 drops OT BID #1 bottle 10/28/18 Unknown Rx OTIC] Ciprofloxacin HCl [Cipro] 500 mg PO BID #28 tablet 10/28/18 Unknown Rx Neomy/Polymyx B/Hc (Otic) Soln 4 drops OT TID #1 bottle 11/15/18 Unknown Rx [Cortisporin (Otic) Soln] traMADol [Ultram] 50 mg PO Q6HR PRN #12 tablet 11/15/18 Unknown Rx Dicyclomine [Bentyl] 20 mg PO QID #14 tablet 03/25/19 Unknown Rx Ondansetron [Zofran Odt] 4 mg PO Q8HR PRN #20 tab.rapdis 03/25/19 Unknown Rx Pantoprazole [Protonix TAB] 20 mg PO QDAY #30 tablet. 03/25/19 Unknown Rx Sucralfate [Carafate] 1 gm PO Q6HR 30 Days udc 03/25/19 Unknown Rx Allergies/Adverse Reactions: Allergies Allergy/AdvReac Type Severity Reaction Status Date / Time No Known Allergies Allergy Verified 10/28/18 15:17 ED Review of Systems ROS: Stated complaint: ABSCESS RT FACE Other details as noted in HPI Comment: All other systems reviewed and negative ED Past Medical Hx - Past Medical History Hx Hypertension: Yes Hx GERD: Yes Additional medical history: CHRONIC BACK PAIN, Post right hip surgery 10/03/17 - Surgical History Additional Surgical History: right hip replacement - Social History Smoking Status: Current Every Day Smoker Substance Use Type: Alcohol - Medications Home Medications: Home Medications Medication Instructions Recorded Confirmed Last Taken Type Ranitidine HCl [Acid Informatics Developer] 150 mg PO BID 01/24/16 09/28/18 09/27/18 History ALBUTEROL Inhaler (OR & NICU) 2 puff IH QID PRN #1 inhalation 02/17/16 09/28/18 09/27/18 Rx [ProAir HFA Inhaler] Cyclobenzaprine [Flexeril 10 MG 10 mg PO TID PRN #30 tablet 04/19/16 09/28/18 09/27/18 Rx TAB] Amitriptyline [Elavil] 25 mg PO QHS PRN #30 tab 01/16/17 09/28/18 Unknown Rx traMADol [Ultram 50 MG tab] 50 mg PO Q8HR PRN #30 tablet 01/16/17 09/28/18 09/27/18 Rx Atenolol [Tenormin] 25 mg PO DAILY #30 tablet 07/23/17 09/28/18 Unknown Rx hydroCHLOROthiazide [HCTZ] 25 mg PO DAILY #30 tablet 07/23/17 09/28/18 09/27/18 Rx Neomycin/Polymyxin B Sulf/Hc 4 drop AU TID #1 drops.susp 07/10/18 09/28/18 Unknown Rx [NEOMY/POLY/HC 3.5mg/05600qllqc/10mg OTIC] traMADol [Ultram] 50 mg PO Q6HR PRN #24 tablet 07/10/18 09/28/18 09/27/18 Rx Famotidine [Pepcid] 20 mg PO BID #60 tablet 08/10/18 09/28/18 Unknown Rx Benzonatate [Tessalon Perles] 100 mg PO Q8HR PRN #20 capsule 09/18/18 09/28/18 Unknown Rx Cipro/Dexameth 0.3/0.1% [Ciprodex 4 drops OT BID #1 bottle 10/28/18 Unknown Rx OTIC] Ciprofloxacin HCl [Cipro] 500 mg PO BID #28 tablet 10/28/18 Unknown Rx Neomy/Polymyx B/Hc (Otic) Soln 4 drops OT TID #1 bottle 11/15/18 Unknown Rx [Cortisporin (Otic) Soln] traMADol [Ultram] 50 mg PO Q6HR PRN #12 tablet 11/15/18 Unknown Rx Dicyclomine [Bentyl] 20 mg PO QID #14 tablet 03/25/19 Unknown Rx Ondansetron [Zofran Odt] 4 mg PO Q8HR PRN #20 tab.rapdis 03/25/19 Unknown Rx Pantoprazole [Protonix TAB] 20 mg PO QDAY #30 tablet. 03/25/19 Unknown Rx Sucralfate [Carafate] 1 gm PO Q6HR 30 Days udc 03/25/19 Unknown Rx ED Physical Exam - General Limitations: No Limitations General appearance: alert, in no apparent distress - Head Head exam: Present: atraumatic, normocephalic - Respiratory Respiratory exam: Present: normal lung sounds bilaterally. Absent: respiratory distress, wheezes, rales, rhonchi, stridor, chest wall tenderness, accessory muscle use, decreased breath sounds, prolonged expiratory - Cardiovascular Cardiovascular Exam: Present: regular rate, normal rhythm, normal heart sounds. Absent: systolic murmur, diastolic murmur, rubs, gallop - Neurological Exam Neurological exam: Present: alert, oriented X3 - Psychiatric Psychiatric exam: Present: normal affect, normal mood - Skin Skin exam: Present: other (2 cm area of induration and fluctuance in front of the right ear, no obvious drainage, no surrounding cellulitis) ED Course Vital Signs 04/08/19 04/09/19 23:49 03:48 Temperature 98 F 97.6 F Pulse Rate 99 H 85 Respiratory 16 18 Rate Blood Pressure 114/81 Blood Pressure 121/94 [Right] O2 Sat by Pulse 97 97 Oximetry - I & D Right Face Type of Procedure: Simple Site: 2 cm abscess in front of the right ear Blade Size: 11 I & D Procedure: betadine prep, sterile drapes applied, sterile dressing applied Progress: skin prepped with betadine, sterile dressing applied, 2.5 cc of 1% lidocaine used, 0.5 cm incision made, moderate amount of purulent drainage expressed, irrigated with 20 cc of saline, sterile dressing applied, pt tolerated well, no complications, bleeding controlled. ED Medical Decision Making - Medical Decision Making pt is a 53 yo male who presents to the ED with c/o an abscess in front of the right ear that began a month ago. he states it increased in size over the last three days. He denies any fever or drainage. The patient states he has been taking amoxicillin prescribed by his dentist for a dental issue. He states that on the left side in front of the left ear he had a I&D performed previously. he states he does shave his face. PMHx HTN. no allergies. 2 cm abscess overlying the TMJ, I&D performed with purulent material expressed, irrigated with saline, sterile gauze applied. advised to follow up with PCP in the next 2-3 days for reevaluation. return to the ED for any new or worsening symptoms. keep area clean and dry. may wash with soap and water and immediately dry. do not get in bath tub, hot tub, or swimming pool Critical care attestation.: If time is entered above; I have spent that time in minutes in the direct care of this critically ill patient, excluding procedure time. ED Disposition Clinical Impression: Abscess, Encounter for incision and drainage procedure Disposition: TO HOME OR SELFCARE Is pt being admited?: No Does the pt Need Aspirin: No Condition: Stable Instructions: Abscess Incision and Drainage (ED), Abscess (ED) Additional Instructions: Please keep area clean and dry. may wash with soap and water and immediately dry. no pool, hot tub, or immersing in water. follow up with your primary care doctor in the next 2-3 days. return to the emergency room for any new or worsening symptoms. Referrals: PRIMARY CARE, [Primary Care Provider] - 2-3 Days Forms: Work/School Release Form(ED) Time of Disposition: 03:19 Print Language: GREENLANDIC
[2019-04-09 03:49] VITALS: BP 121/94
== END 2019-04-09 03:49 | disposition home or self-care (01) ==
LOC: ED 23:42
DX: L02.01 Cutaneous abscess of face (principal); I10 Essential (primary) hypertension; K21.9 Gastro-esophageal reflux disease without esophagitis; F17.200 Nicotine dependence, unspecified, uncomplicated; G89.29 Other chronic pain; Z79.899 Other long term (current) drug therapy
CPT/HCPCS: 99282

== ENCOUNTER 2019-05-14 03:09 | Emergency (ER) | payer OTHER ==
[2019-05-14 03:33] VITALS: BP 103/75
[2019-05-14 04:24] LABS: Basophils # (Auto) 0.1 K/mm3 (0.0-0.1); Eosinophils # (Auto) 0.4 K/mm3 (0.0-0.4); Eosinophils % (Auto) 5.6 % (0.0-4.3); Hematocrit 42.6 % (35.5-45.6); Hemoglobin 14.2 gm/dl (11.8-15.2); Lymphocytes # (Auto) 2.5 K/mm3 (1.2-5.4); Lymphocytes % (Auto) 36.5 % (13.4-35.0); Mean Corpuscular HGB Conc 33 % (32-34); Mean Corpuscular Volume 90 fl (84-94); Monocytes # (Auto) 0.6 K/mm3 (0.0-0.8); Monocytes % (Auto) 8.4 % (0.0-7.3); Platelet Count 376 K/mm3 (140-440); Red Blood Count 4.72 M/mm3 (3.65-5.03); Red Cell Distribution Width 18.1 % (13.2-15.2)
[2019-05-14 04:33] LABS: Bilirubin,Urine NEG (Negative); Blood,Urine NEG (Negative); Color,Urine Yellow (Yellow); Mucus,Urine FEW /HPF; Protein,Urine <15 mg/dL mg/dL (Negative); Urobilinogen,Urine < 2.0 mg/dL (<2.0)
[2019-05-14 04:45] LABS: Albumin 4.5 g/dL (3.9-5); Calcium 9.8 mg/dL (8.4-10.2)
[2019-05-15] MEDS ORDERED: PROAIR IH PRN (07:54)
[2019-05-15] MEDS ORDERED: ELAVIL PO PRN (07:54)
--- NOTE | 2019-05-15 07:59 | History and Physical Report ---
History of Present Illness Date of examination: 05/15/19 Date of admission: 05/15/19 Chief complaint: Nausea and vomiting and black tarry stool Medications and Allergies Allergies Allergy/AdvReac Type Severity Reaction Status Date / Time No Known Allergies Allergy Verified 10/28/18 15:17 Home Medications Medication Instructions Recorded Confirmed Last Taken Type Ranitidine HCl [Acid Molding Technician] 150 mg PO BID 01/24/16 09/28/18 09/27/18 History ALBUTEROL Inhaler (OR & NICU) 2 puff IH QID PRN #1 inhalation 02/17/16 09/28/18 09/27/18 Rx [ProAir HFA Inhaler] Cyclobenzaprine [Flexeril 10 MG 10 mg PO TID PRN #30 tablet 04/19/16 09/28/18 09/27/18 Rx TAB] Amitriptyline [Elavil] 25 mg PO QHS PRN #30 tab 01/16/17 09/28/18 Unknown Rx traMADol [Ultram 50 MG tab] 50 mg PO Q8HR PRN #30 tablet 01/16/17 09/28/18 09/27/18 Rx Atenolol [Tenormin] 25 mg PO DAILY #30 tablet 07/23/17 05/15/19 05/15/19 Rx hydroCHLOROthiazide [HCTZ] 25 mg PO DAILY #30 tablet 07/23/17 05/15/19 05/15/19 Rx Neomycin/Polymyxin B Sulf/Hc 4 drop AU TID #1 drops.susp 07/10/18 09/28/18 Unknown Rx [NEOMY/POLY/HC 3.5mg/37411ogsjd/10mg OTIC] traMADol [Ultram] 50 mg PO Q6HR PRN #24 tablet 07/10/18 09/28/18 09/27/18 Rx Famotidine [Pepcid] 20 mg PO BID #60 tablet 08/10/18 09/28/18 Unknown Rx Benzonatate [Tessalon Perles] 100 mg PO Q8HR PRN #20 capsule 09/18/18 09/28/18 Unknown Rx Cipro/Dexameth 0.3/0.1% [Ciprodex 4 drops OT BID #1 bottle 10/28/18 Unknown Rx OTIC] Ciprofloxacin HCl [Cipro] 500 mg PO BID #28 tablet 10/28/18 Unknown Rx Neomy/Polymyx B/Hc (Otic) Soln 4 drops OT TID #1 bottle 11/15/18 Unknown Rx [Cortisporin (Otic) Soln] traMADol [Ultram] 50 mg PO Q6HR PRN #12 tablet 11/15/18 Unknown Rx Dicyclomine [Bentyl] 20 mg PO QID #14 tablet 03/25/19 Unknown Rx Ondansetron [Zofran Odt] 4 mg PO Q8HR PRN #20 tab.rapdis 03/25/19 Unknown Rx Sucralfate [Carafate] 1 gm PO Q6HR 30 Days udc 03/25/19 Unknown Rx Pantoprazole [Protonix TAB] 40 mg PO QDAY 05/15/19 05/15/19 05/15/19 History Exam - Constitutional Vitals: Temp Pulse Resp BP Pulse Ox 97.9 F 87 20 103/75 100 05/14/19 03:29 05/14/19 03:29 05/14/19 03:29 05/14/19 03:29 05/14/19 03:29 Results - Labs CBC & Chem 7: 05/14/19 04:05 05/14/19 04:05
[2019-05-15] MEDS ORDERED: NACL 0.9% 1000 ML 1,000 ML IV SCH (08:00)
[2019-05-15] MEDS ORDERED: MORPHINE IV PRN (08:47)
[2019-05-15] MEDS ORDERED: TENORMIN PO SCH (10:00)
[2019-05-15] MEDS ORDERED: PROTONIX IV SCH (10:00)
[2019-05-15] MEDS ORDERED: HCTZ PO SCH (10:00)
--- NOTE | 2019-05-20 12:53 | Emergency Department Report ---
Blank Doc - Documentation Documentation: The patient was not seen by provider in the emergency department and left with out being seen
== END 2019-05-14 07:45 | disposition left against medical advice (07) ==
LOC: ED 03:09
DX: R10.9 Unspecified abdominal pain (principal); Z53.21 Procedure and treatment not carried out due to patient leaving prior to being seen by health care provider
CPT/HCPCS: 36415; 80053; 81001; 83690; 85025

== ENCOUNTER 2019-05-14 23:33 | Inpatient (IN) | payer OTHER ==
[2019-05-15 00:19] LABS: Basophils # (Auto) 0.1 K/mm3 (0.0-0.1); Basophils % (Auto) 1.1 % (0.0-1.8); Eosinophils # (Auto) 0.4 K/mm3 (0.0-0.4); Eosinophils % (Auto) 5.2 % (0.0-4.3); Hematocrit 39.5 % (35.5-45.6); Hemoglobin 13.6 gm/dl (11.8-15.2); Lymphocytes # (Auto) 2.9 K/mm3 (1.2-5.4); Lymphocytes % (Auto) 41.3 % (13.4-35.0); Mean Corpuscular HGB Conc 34 % (32-34); Mean Corpuscular Volume 90 fl (84-94); Monocytes # (Auto) 0.8 K/mm3 (0.0-0.8); Monocytes % (Auto) 11.2 % (0.0-7.3); Platelet Count 354 K/mm3 (140-440); Red Blood Count 4.37 M/mm3 (3.65-5.03); Red Cell Distribution Width 17.6 % (13.2-15.2)
[2019-05-15 00:28] LABS: Albumin 4.4 g/dL (3.9-5); Calcium 9.2 mg/dL (8.4-10.2)
[2019-05-15] MEDS ORDERED: TYLENOL ONE (00:56)
[2019-05-15] MEDS ORDERED: MORPHINE IV ONE (02:30)
[2019-05-15] MEDS ORDERED: ZOFRAN IV ONE (02:30)
[2019-05-15] MEDS ORDERED: MORPHINE ONE ×2 (02:34→08:51)
[2019-05-15] MEDS ORDERED: ZOFRAN ONE (02:34)
[2019-05-15] MEDS ORDERED: NACL 0.9% 1000 ML 1,000 ML IV ONE (03:07)
[2019-05-15] MEDS ORDERED: PROTONIX IV ONE (03:07)
[2019-05-15] MEDS ORDERED: SUBLIMAZE IV ONE (03:07)
--- NOTE | 2019-05-15 03:31 | Emergency Department Report ---
HPI - General Chief Complaint: Nausea/Vomiting/Diarrhea Time Seen by Provider: 05/15/19 02:58 - HPI HPI: Room 1 The patient is a 53-year-old male presenting with a chief complaint of abdominal pain. Patient states over the past 3 days he's had nausea vomiting and diarrhea. The patient states past 2 weeks he said severe epigastric abdominal pain described as a squeezing and burning in nature. Patient denies history of fever. Patient states tonight about his stool was black. Patient currently gives his pain a score of 9/10 Location: Abdomen Duration: [See above] Quality: [See above] Severity: [See above] Modifying factors: [see above] Context: [see above] Mode of transportation: [not driving] ED Past Medical Hx - Past Medical History Previous Medical History?: Yes Hx Hypertension: Yes Hx GERD: Yes Additional medical history: CHRONIC BACK PAIN, Post right hip surgery 10/03/17 - Surgical History Past Surgical History?: Yes Additional Surgical History: right hip replacement - Family History Family history: no significant - Social History Smoking Status: Current Every Day Smoker (2/3 pack per day) Substance Use Type: None (denies illicit drug use) - Medications Home Medications: Home Medications Medication Instructions Recorded Confirmed Last Taken Type Ranitidine HCl [Acid Machine Repairer Maintenance] 150 mg PO BID 01/24/16 09/28/18 09/27/18 History ALBUTEROL Inhaler (OR & NICU) 2 puff IH QID PRN #1 inhalation 02/17/16 09/28/18 09/27/18 Rx [ProAir HFA Inhaler] Cyclobenzaprine [Flexeril 10 MG 10 mg PO TID PRN #30 tablet 04/19/16 09/28/18 09/27/18 Rx TAB] Amitriptyline [Elavil] 25 mg PO QHS PRN #30 tab 01/16/17 09/28/18 Unknown Rx traMADol [Ultram 50 MG tab] 50 mg PO Q8HR PRN #30 tablet 01/16/17 09/28/18 09/27/18 Rx Atenolol [Tenormin] 25 mg PO DAILY #30 tablet 07/23/17 09/28/18 Unknown Rx hydroCHLOROthiazide [HCTZ] 25 mg PO DAILY #30 tablet 07/23/17 09/28/18 09/27/18 Rx Neomycin/Polymyxin B Sulf/Hc 4 drop AU TID #1 drops.susp 07/10/18 09/28/18 Unknown Rx [NEOMY/POLY/HC 3.5mg/75510ukiui/10mg OTIC] traMADol [Ultram] 50 mg PO Q6HR PRN #24 tablet 07/10/18 09/28/18 09/27/18 Rx Famotidine [Pepcid] 20 mg PO BID #60 tablet 08/10/18 09/28/18 Unknown Rx Benzonatate [Tessalon Perles] 100 mg PO Q8HR PRN #20 capsule 09/18/18 09/28/18 Unknown Rx Cipro/Dexameth 0.3/0.1% [Ciprodex 4 drops OT BID #1 bottle 10/28/18 Unknown Rx OTIC] Ciprofloxacin HCl [Cipro] 500 mg PO BID #28 tablet 10/28/18 Unknown Rx Neomy/Polymyx B/Hc (Otic) Soln 4 drops OT TID #1 bottle 11/15/18 Unknown Rx [Cortisporin (Otic) Soln] traMADol [Ultram] 50 mg PO Q6HR PRN #12 tablet 11/15/18 Unknown Rx Dicyclomine [Bentyl] 20 mg PO QID #14 tablet 03/25/19 Unknown Rx Ondansetron [Zofran Odt] 4 mg PO Q8HR PRN #20 tab.rapdis 03/25/19 Unknown Rx Pantoprazole [Protonix TAB] 20 mg PO QDAY #30 tablet. 03/25/19 Unknown Rx Sucralfate [Carafate] 1 gm PO Q6HR 30 Days udc 03/25/19 Unknown Rx ED Review of Systems ROS: Stated complaint: BLACK STOOL/EMESIS/DIARRHEA Other details as noted in HPI Constitutional: denies: fever Eyes: denies: eye pain ENT: denies: throat pain Respiratory: no symptoms reported Cardiovascular: denies: chest pain Endocrine: no symptoms reported Gastrointestinal: abdominal pain, nausea, vomiting, diarrhea, melena Genitourinary: denies: dysuria Musculoskeletal: denies: back pain Neurological: denies: headache Physical Exam - Physical Exam Vital Signs: Vital Signs 05/14/19 05/15/19 05/15/19 23:50 02:05 02:39 Temperature 97.7 F Pulse Rate 89 78 81 Respiratory 16 20 18 Rate Blood Pressure 125/85 160/104 144/91 [Left] O2 Sat by Pulse 98 98 Oximetry Laboratory Tests 05/14/19 05/14/19 05/15/19 23:57 23:57 03:55 WBC 7.1 RBC 4.37 Hgb 13.6 Hct 39.5 MCV 90 MCH 31 MCHC 34 RDW 17.6 H Plt Count 354 Lymph % (Auto) 41.3 H [place] % (Auto) 11.2 H Eos % (Auto) 5.2 H Baso % (Auto) 1.1 Lymph # 2.9 [place] # 0.8 Eos # 0.4 Baso # 0.1 Seg Neutrophils % 41.2 Seg Neutrophils # 2.9 PT 14.3 INR 1.14 H APTT 28.7 Sodium 135 L Potassium 3.7 Chloride 102.3 Carbon Dioxide 15 L Anion Gap 21 BUN 29 H Creatinine 1.7 H Estimated GFR 51 BUN/Creatinine Ratio 17 Glucose 131 H Calcium 9.2 Total Bilirubin 0.20 AST 11 ALT 8 Alkaline Phosphatase 73 Total Protein 8.1 Albumin 4.4 Albumin/Globulin Ratio 1.2 Lipase 63 H Physical Exam: GENERAL: The patient is well-developed well-nourished male lying on stretcher appearing to be in moderate discomfort. [] HEENT: Normocephalic. Atraumatic. Extraocular motions are intact. Patient has moist mucous membranes. NECK: Supple. Trachea midline CHEST/LUNGS: Clear to auscultation. There is no respiratory distress noted. HEART/CARDIOVASCULAR: Regular. There is no tachycardia. There is no gallop rub or murmur. ABDOMEN: Abdomen is soft, with tenderness to palpation in the midepigastric and right upper quadrant. Patient has normal bowel sounds. There is no abdominal distention. SKIN: There is no rash. There is no edema. There is no diaphoresis. NEURO: The patient is awake, alert, and oriented. The patient is cooperative. The patient has normal speech MUSCULOSKELETAL: There is no evidence of acute injury. RECTAL: Guaiac positive dark stool ED Course Vital Signs 05/14/19 05/15/19 05/15/19 23:50 02:05 02:39 Temperature 97.7 F Pulse Rate 89 78 81 Respiratory 16 20 18 Rate Blood Pressure 125/85 160/104 144/91 [Left] O2 Sat by Pulse 98 98 Oximetry ED Medical Decision Making - Lab Data Result diagrams: 05/14/19 23:57 05/14/19 23:57 - Differential Diagnosis GI bleed, pancreatitis, peptic ulcer disease Critical care attestation.: If time is entered above; I have spent that time in minutes in the direct care of this critically ill patient, excluding procedure time. ED Disposition Clinical Impression: GI bleed, Acute abdominal pain Disposition: - OP ADMIT IP TO THIS HOSP Is pt being admited?: Yes Does the pt Need Aspirin: No Condition: Fair Referrals: CESAR CARLTONSTAPLES MD MARIO [Primary Care Provider] - 3-5 Days Time of Disposition: 04:50 (hospitalist paged (Dr Merritt))
[2019-05-15 04:32] LABS: INR 1.14 (0.87-1.13)
[2019-05-15 04:33] LABS: Partial Thromboplastin Time 28.7 Sec. (24.2-36.6)
--- NOTE | 2019-05-15 05:02 | XRay Report ---
ACUTE ABDOMEN SERIES, 3 VIEWS HISTORY: Epigastric pain, melena COMPARISON: No relevant prior imaging study available. FINDINGS: Chest: The cardiac silhouette is normal in size. The lungs are clear. Abdomen: Bowel: No dilated bowel loops. No abnormal air-fluid levels. Free air: None. Calcifications: No suspicious calcifications. Osseous Structures: No significant osseous abnormality. Right hip arthroplasty is present. Support hardware: None. Additional findings: None. IMPRESSION: 1. No acute abnormality of the abdomen. 2. No acute pulmonary disease. Signer Name: Salome Singh MD Signed: 05/15/2019 3:57 AM Workstation Name: [id number]
[2019-05-15] MEDS ORDERED: NACL 0.9% 1000 ML 1,000 ML ONE (08:51)
[2019-05-15] MEDS ORDERED: MORPHINE IV PRN (08:57)
[2019-05-15] MEDS ORDERED: PROAIR IH PRN (09:26)
[2019-05-15] MEDS ORDERED: ELAVIL PO PRN (09:28)
[2019-05-15] MEDS ORDERED: NACL 0.9% 1000 ML 1,000 ML IV SCH (10:00)
[2019-05-15] MEDS ORDERED: PROVENTIL IH PRN (10:42)
[2019-05-15 12:14] VITALS: BP 131/81
--- NOTE | 2019-05-15 12:19 | Gastroenterology Consultation ---
History of Present Illness - Reason for Consult Consult date: 05/15/19 melena Requesting physician: AC JAIN - History of Present Illness Patient is a 53 y/o male who presented to ED with c/o epigastric abdominal pain and black stool to which GI has been consulted. Patient is previously known to our service. He has a hx of GERD and chronic epigastic pain with associated decrease in appetite/wt loss and dyspepsia since last year with etiology thought to be 2/2 PUD. He underwent an initial EGD 01/2018 that showed a gastric ulcer (bx negative for H pylori or malignancy) and a repeat EGD 09/2018 that showed ulcer healing along with esophagitis. He also underwent a colonoscopy at that time, however it was incomplete due to poor prep. This afternoon patient was resting on stretcher w/o acute distress. He reports continued epigastric pain (exacerbated with PO intake) but no change from prior pain and a BM yesterday with black stool. No active signs of bleeding today, hematemesis, or hematochezia. No NSAID use at home but admits to taking multiple doses of Pepto bismol a couple of days ago for abd pain. Has been compliant with taking PPI. Denies fever, CP, SOB, dizziness, vomiting, diarrhea, or constipation. During exam, patient stated "I'm scared". When asked to elaborate, he states that every May he has a hard time because it is the anniversary of his 's who from cancer and states that he starts to think that "maybe it is my time t oo". He became tearful when speaking about his , and admits that this could be contributing to his current symtoms. Past History Past Medical History: GERD, hypertension, other (PUD, chronic back pain) Past Surgical History: total hip replacement Social history: smoking Medications and Allergies Allergies Allergy/AdvReac Type Severity Reaction Status Date / Time No Known Allergies Allergy Verified 10/28/18 15:17 Home Medications Medication Instructions Recorded Confirmed Last Taken Type Ranitidine HCl [Acid Scale Expert] 150 mg PO BID 01/24/16 09/28/18 09/27/18 History ALBUTEROL Inhaler (OR & NICU) 2 puff IH QID PRN #1 inhalation 02/17/16 09/28/18 09/27/18 Rx [ProAir HFA Inhaler] Cyclobenzaprine [Flexeril 10 MG 10 mg PO TID PRN #30 tablet 04/19/16 09/28/18 09/27/18 Rx TAB] Amitriptyline [Elavil] 25 mg PO QHS PRN #30 tab 01/16/17 09/28/18 Unknown Rx Atenolol [Tenormin] 25 mg PO DAILY #30 tablet 07/23/17 05/15/19 05/15/19 Rx hydroCHLOROthiazide [HCTZ] 25 mg PO DAILY #30 tablet 07/23/17 05/15/19 05/15/19 Rx Neomycin/Polymyxin B Sulf/Hc 4 drop AU TID #1 drops.susp 07/10/18 09/28/18 Un known Rx [NEOMY/POLY/HC 3.5mg/[id number]/10mg OTIC] Famotidine [Pepcid] 20 mg PO BID #60 tablet 08/10/18 09/28/18 Unknown Rx Benzonatate [Tessalon Perles] 100 mg PO Q8HR PRN #20 capsule 09/18/18 09/28/18 Unknown Rx Cipro/Dexameth 0.3/0.1% [Ciprodex 4 drops OT BID #1 bottle 10/28/18 Unknown Rx OTIC] Neomy/Polymyx B/Hc (Otic) Soln 4 drops OT TID #1 bottle 11/15/18 Unknown Rx [Cortisporin (Otic) Soln] traMADol [Ultram] 50 mg PO Q6HR PRN #12 tablet 11/15/18 Unknown Rx Dicyclomine [Bentyl] 20 mg PO QID #14 tablet 03/25/19 Unknown Rx Ondansetron [Zofran Odt] 4 mg PO Q8HR PRN #20 tab.rapdis 03/25/19 Unknown Rx Sucralfate [Carafate] 1 gm PO Q6HR 30 Days udc 05/15/19 Unknown Rx oxyCODONE /ACETAMINOPHEN [Percocet 1 tab PO BID PRN #6 tablet 05/15/19 Unknown Rx 5/325] Active Meds: Active Medications Albuterol (Proventil) 2.5 mg IH QIDRT PRN PRN Reason: Shortness Of Breath Amitriptyline HCl (Elavil) 25 mg PO QHS PRN PRN Reason: Pain, Moderate (4-6) Atenolol (Tenormin) 25 mg PO DAILY [facility] Hydrochlorothiazide (Hctz) 25 mg PO DAILY [facility] Sodium Chloride (Nacl 0.9% 1000 Ml) 1,000 mls @ 100 mls/hr IV DIRECT BROCK Last Admin: 05/15/19 09:00 Dose: 100 mls/hr Documented by: Morphine Sulfate (Morphine) 1 mg IV Q6H PRN PRN Reason: Pain, Moderate (4-6) Last Admin: 05/15/19 09:00 Dose: 1 mg Documented by: Pantoprazole Sodium (Protonix) 40 mg IV DAILY@2200 [facility] medications reviewed/updated as required Review of Systems - Review of Systems All systems: negative Constitutional: poor appetite Gastrointestinal: abdominal pain (epigastric), other (black stool) Exam - Constitutional Vital Signs: Temp Pulse Resp BP Pulse Ox 98.0 F 72 18 131/81 96 05/15/19 11:57 05/15/19 11:57 05/15/19 11:57 05/15/19 11:57 05/15/19 11:57 General appearance: no acute distress - EENT Eyes: PERRL, EOM intact ENT: hearing intact - Respiratory Respiratory effort: normal Respiratory: bilateral: CTA - Cardiovascular Rhythm: regular - Gastrointestinal General gastrointestinal: Present: soft, tender (slight TTP in epigastric area), non-distended, normal bowel sounds Rectal Exam: other (dark green/black stool- data center manager present during exam (Jenn JAVIER)) - Neurologic Neurological: alert and oriented x3 - Labs CBC & Chem 7: 05/14/19 23:57 05/14/19 23:57 Lab Results: Laboratory Results - last 24 hr 05/14/19 05/14/19 05/15/19 23:57 23:57 03:55 WBC 7.1 RBC 4.37 Hgb 13.6 Hct 39.5 MCV 90 MCH 31 MCHC 34 RDW 17.6 H Plt Count 354 Lymph % (Auto) 41.3 H [place] % (Auto) 11.2 H Eos % (Auto) 5.2 H Baso % (Auto) 1.1 Lymph # 2.9 [place] # 0.8 Eos # 0.4 Baso # 0.1 Seg Neutrophils % 41.2 Seg Neutrophils # 2.9 PT 14.3 INR 1.14 H APTT 28.7 Sodium 135 L Potassium 3.7 Chloride 102.3 Carbon Dioxide 15 L Anion Gap 21 BUN 29 H Creatinine 1.7 H Estimated GFR 51 BUN/Creatinine Ratio 17 Glucose 131 H Calcium 9.2 Total Bilirubin 0.20 AST 11 ALT 8 Alkaline Phosphatase 73 Total Protein 8.1 Albumin 4.4 Albumin/Globulin Ratio 1.2 Lipase 63 H Blood Type Antibody Screen 05/15/19 04:00 WBC RBC Hgb Hct MCV MCH MCHC RDW Plt Count Lymph % (Auto) [place] % (Auto) Eos % (Auto) Baso % (Auto) Lymph # [place] # Eos # Baso # Seg Neutrophils % Seg Neutrophils # PT INR APTT Sodium Potassium Chloride Carbon Dioxide Anion Gap BUN Creatinine Estimated GFR BUN/Creatinine Ratio Glucose Calcium Total Bilirubin AST ALT Alkaline Phosphatase Total Protein Albumin Albumin/Globulin Ratio Lipase Blood Type O NEGATIVE Antibody Screen Negative Assessment and Plan 1.black stool 2.epigastric pain-chronic; unchanged 3.H/o PUD -INR 1.14 -afebrile -WBC WNL -H/H WNL (13.6/39.5) -continue to monitor H/H and transfuse as needed -hold blood thinning medications; currently HD stable -BUN 29 -LFTs WNL -abdominal x-ray unremarkable -EGD 01/2018 showed gastric ulcer (bx negative for HP or malignancy); repeat EGD 09/28/2018 showed healing gastric ulcer and esophagitis -patient has a hx of chronic epigastric pain since last year with associated dyspepsia, decrease in appetite/wt loss with etiology thought to be 2/2 PUD. He presents today with c/o continued unchanged epigastric pain and 1 episode of black stool yesterday after taking multiple doses of pepto bismol the day before. No hematemesis or hematochezia. -clinically, patient is stable with no further signs of bleeding. Tolerating diet. -no plan for repeat scope at this time unless overt bleeding develops (black stool likely 2/2 pepto bismol given normal H/H) -continue PPI BID -start on carafate -diet as tolerated -avoid NSAIDs -continue supportive care -patient is okay to be d/c per GI standpoint on current medications with f/u in clinic with Dr. Medellin in ~1-2 weeks for further management -no further recommendations at this time -will sign off, please call if needed
[2019-05-15] MEDS ORDERED: PERCOCET 5/325 PO ONE (13:04)
--- NOTE | 2019-05-15 13:05 | History and Physical Report ---
History of Present Illness Date of examination: 05/15/19 Date of admission: 05/15/19 08:59 Chief complaint: Nausea and vomiting and black tarry stools for the last 4 days History of present illness: 53-year-old male presenting with a chief complaint of epigastric abdominal pain, nausea vomiting and diarrhea. The patient states past 2 weeks he said severe epigastric abdominal pain described as a squeezing and burning in nature.Patient reports that he has taken peptobismol last 2 days for abd pain. Patient denies hematemesis or rectal bleeding but reports to noticing black stool. No active rectal bleeding or myriam le. Patient has h/o PUD on PPI Patient is sad about losing his to cancer.however denies depressive ,suicidal thots or ideation. Patient,s H and H and vital signs are stable Past History Past Medical History: GERD, hypertension, other (PUD, chronic back pain) Past Surgical History: total hip replacement Social history: smoking Medications and Allergies Allergies Allergy/AdvReac Type Severity Reaction Status Date / Time No Known Allergies Allergy Verified 10/28/18 15:17 Home Medications Medication Instructions Recorded Confirmed Last Taken Type Ranitidine HCl [Acid Refinery Operator Helper Crude Unit] 150 mg PO BID 01/24/16 09/28/18 09/27/18 History ALBUTEROL Inhaler (OR & NICU) 2 puff IH QID PRN #1 inhalation 02/17/16 09/28/18 09/27/18 Rx [ProAir HFA Inhaler] Cyclobenzaprine [Flexeril 10 MG 10 mg PO TID PRN #30 tablet 04/19/16 09/28/18 09/27/18 Rx TAB] Amitriptyline [Elavil] 25 mg PO QHS PRN #30 tab 01/16/17 09/28/18 Unknown Rx Atenolol [Tenormin] 25 mg PO DAILY #30 tablet 07/23/17 05/15/19 05/15/19 Rx hydroCHLOROthiazide [HCTZ] 25 mg PO DAILY #30 tablet 07/23/17 05/15/19 05/15/19 Rx Neomycin/Polymyxin B Sulf/Hc 4 drop AU TID #1 drops.susp 07/10/18 09/28/18 Unknown Rx [NEOMY/POLY/HC 3.5mg/[id number]/10mg OTIC] Famotidine [Pepcid] 20 mg PO BID #60 tablet 08/10/18 09/28/18 Unknown Rx Benzonatate [Tessalon Perles] 100 mg PO Q8HR PRN #20 capsule 09/18/18 09/28/18 Unknown Rx Cipro/Dexameth 0.3/0.1% [Ciprodex 4 drops OT BID #1 bottle 10/28/18 Unknown Rx OTIC] Neomy/Polymyx B/Hc (Otic) Soln 4 drops OT TID #1 bottle 11/15/18 Unknown Rx [Cortisporin (Otic) Soln] traMADol [Ultram 50 MG tab] 50 mg PO Q6HR PRN #12 tablet 11/15/18 Unknown Rx Dicyclomine [Bentyl] 20 mg PO QID #14 tablet 03/25/19 Unknown Rx Ondansetron [Zofran ODT TAB] 4 mg PO Q8HR PRN #20 tab.rapdis 03/25/19 Unknown Rx Sucralfate [Carafate] 1 gm PO Q6HR 30 Days udc 05/15/19 Unknown Rx oxyCODONE /ACETAMINOPHEN [Percocet 1 tab PO BID PRN #6 tablet 05/15/19 Unknown Rx 5/325] Active Meds: Active Medications Albuterol (Proventil) 2.5 mg IH QIDRT PRN PRN Reason: Shortness Of Breath Amitriptyline HCl (Elavil) 25 mg PO QHS PRN PRN Reason: Pain, Moderate (4-6) Atenolol (Tenormin) 25 mg PO DAILY [facility] Hydrochlorothiazide (Hctz) 25 mg PO DAILY [facility] Sodium Chloride (Nacl 0.9% 1000 Ml) 1,000 mls @ 100 mls/hr IV DIRECT BROCK Last Admin: 05/15/19 09:00 Dose: 100 mls/hr Documented by: Morphine Sulfate (Morphine) 1 mg IV Q6H PRN PRN Reason: Pain, Moderate (4-6) Last Admin: 05/15/19 09:00 Dose: 1 mg Documented by: Pantoprazole Sodium (Protonix) 40 mg IV DAILY@2200 [facility] Review of Systems Constitutional: other (denies wt loss/gain) Exam - Constitutional Vitals: Temp Pulse Resp BP Pulse Ox 98.0 F 72 18 131/81 96 05/15/19 11:57 05/15/19 11:57 05/15/19 11:57 05/15/19 11:57 05/15/19 11:57 General appearance: Present: no acute distress - EENT Eyes: Present: PERRL, EOM intact - Neck Neck: Present: supple, normal ROM - Respiratory Respiratory: bilateral: diminished, negative: rales, rhonchi, wheezing - Cardiovascular Rhythm: regular Heart Sounds: Present: S1 & S2 - Extremities Extremities: no ischemia, No edema - Abdominal General gastrointestinal: Present: soft, non-tender, non-distended - Integumentary Integumentary: Present: clear, warm - Musculoskeletal Musculoskeletal: strength equal bilaterally - Psychiatric Psychiatric: appropriate mood/affect, cooperative - Neurologic Neurologic: moves all extremities Results - Labs CBC & Chem 7: 05/14/19 23:57 05/14/19 23:57 Labs: Abnormal lab results 05/14/19 05/14/19 05/15/19 Range/Units 23:57 23:57 03:55 RDW 17.6 H (13.2-15.2) % Lymph % (Auto) 41.3 H (13.4-35.0) % [place] % (Auto) 11.2 H (0.0-7.3) % Eos % (Auto) 5.2 H (0.0-4.3) % INR 1.14 H (0.87-1.13) Sodium 135 L (137-145) mmol/L Carbon Dioxide 15 L (22-30) mmol/L BUN 29 H (9-20) mg/dL Creatinine 1.7 H (0.8-1.5) mg/dL Glucose 131 H (75-100) mg/dL Lipase 63 H (13-60) units/L Assessment and Plan -- Le /black stool: No new episodes,closely monitor H and H ,NPO, GI consult --Abdominal Pain /Epigastric pain : supportive care, pain meds,PPI --H/O PUD: continue PPI,f/u GI evaln --DVT prophylaxis SCDs Monitor closely and adjust the management as needed
--- NOTE | 2019-05-15 13:10 | Discharge Summary ---
Providers - Providers Date of Admission: 05/15/19 08:59 Date of discharge: 05/15/19 Attending physician: AC JAIN 05/15/19 09:24 Consult to Physician [CONS] Routine Comment: spoke to Dr. Whitlock at 0919 on 05/15/19 Consulting Provider: BARBARA WHITLOCK Physician Instructions: Reason For Exam: Melena Primary care physician: DEVON ROMAN Hospitalization Reason for admission: Black tarry stool/upper GI bleeding Condition: Fair Pertinent studies: Chest and abdominal x-ray; no acute abnormality Hospital course: A 53-year-old male patient was admitted through emergency room with Epigastric and abdominal pain and black tarry stools Symptomatically managed, patient is hemodynamically and clinically stable, with stable H&H, evaluated by GI, no new episodes of melena Patient had extensive GI workup in the past as mentioned below Patient has history of peptic ulcer disease underwent EGD in January 2018 which showed gastric ulcer biopsy negative for malignancy and H pylori patient again had to put EGD in September 2018 that showed a first healing along with esophagitis, As patient is hemodynamically stable with no change in H&H, GI recommended Protonix and sucralfate, advised to follow up as outpatient The patient is comfortable in no new complaints, Vital signs noted Stable at discharge Discharge diagnoses: -- Le /black stool: upper GI bleeding No new episodes, H&H stable GI evaluated, cleared for discharge --Abdominal Pain /Epigastric pain : supportive care, pain meds,PPI --H/O PUD: Had extensive GI workup in the past continue PPI,f/u GI evaln --DVT prophylaxis; SCDs Stable at discharge Disposition: [place]-01 TO HOME OR SELFCARE Time spent for discharge: 32 min Core Measure Documentation - Palliative Care Palliative Care/ Comfort Measures: Not Applicable - Core Measures Any of the following diagnoses?: none Exam - Constitutional Vitals: Temp Pulse Resp BP Pulse Ox 98.0 F 72 18 131/81 96 05/15/19 11:57 05/15/19 11:57 05/15/19 11:57 05/15/19 11:57 05/15/19 11:57 General appearance: Present: no acute distress, well-nourished - EENT Eyes: Present: PERRL, EOM intact - Neck Neck: Present: supple, normal ROM - Cardiovascular Rhythm: regular Heart Sounds: Present: S1 & S2 - Extremities Extremities: no ischemia, No edema - Abdominal General gastrointestinal: Present: soft, non-tender, non-distended, normal bowel sounds - Integumentary Integumentary: Present: clear, warm - Musculoskeletal Musculoskeletal: strength equal bilaterally - Psychiatric Psychiatric: appropriate mood/affect, cooperative - Neurologic Neurologic: CNII-XII intact, moves all extremities Plan Activity: no restrictions Diet: advance as tolerated Additional Instructions: Follow with private GI in 1 week Follow up with: RANJAN GUSMAN MD [Referring] - 3-5 Days SUSAN HAYES MD [Staff Physician] - 7 Days Prescriptions: Sucralfate [Carafate] 1 gm PO Q6HR 30 Days udc oxyCODONE /ACETAMINOPHEN [Percocet 5/325] 1 tab PO BID PRN #6 tablet PRN Reason: Pain , Severe (7-10)
[2019-05-15] MEDS ORDERED: PROTONIX IV SCH (22:00)
[2019-05-16] MEDS ORDERED: TENORMIN PO SCH (10:00)
[2019-05-16] MEDS ORDERED: HCTZ PO SCH (10:00)
== END 2019-05-15 16:55 | disposition home or self-care (01) | DRG 379 ==
LOC: ED 23:33 → 3A 05-15 08:59
PROVIDERS: ADMIT Internal Medicine; ATTEND Internal Medicine
DX: K29.71 Gastritis, unspecified, with bleeding (principal); K21.9 Gastro-esophageal reflux disease without esophagitis; I10 Essential (primary) hypertension; G89.29 Other chronic pain; M54.9 Dorsalgia, unspecified; F17.200 Nicotine dependence, unspecified, uncomplicated; Z96.641 Presence of right artificial hip joint; Z79.899 Other long term (current) drug therapy; Z87.11 Personal history of peptic ulcer disease
CPT/HCPCS: 36415; 74022; 80053; 81001; 82271; 83690; 85025; 85610; 85730; 86850; 86900; 86901; 99406; G0378; C9113; J2270; J2405; J3010; J7030

== ENCOUNTER 2019-07-23 00:04 | Emergency (ER) | payer OTHER ==
[2019-07-23] MEDS ORDERED: ASPIRIN PO ONE (00:36)
--- NOTE | 2019-07-23 01:13 | XRay Report ---
CHEST 1 VIEW [id number] INDICATION / CLINICAL INFORMATION: Chest Pain. COMPARISON: 05/15/2019 FINDINGS: SUPPORT DEVICES: None HEART / MEDIASTINUM: No significant abnormality. LUNGS / PLEURA: No significant pulmonary or pleural abnormality. No pneumothorax. ADDITIONAL FINDINGS: No significant additional findings. IMPRESSION: No significant acute abnormality Signer Name: Dane Leonard MD Signed: 07/23/2019 1:09 AM Workstation Name: [id number]
[2019-07-23 01:18] LABS: Basophils # (Auto) 0.1 K/mm3 (0.0-0.1); Eosinophils # (Auto) 0.3 K/mm3 (0.0-0.4); Eosinophils % (Auto) 5.1 % (0.0-4.3); Hematocrit 33.3 % (35.5-45.6); Hemoglobin 10.9 gm/dl (11.8-15.2); Lymphocytes # (Auto) 2.7 K/mm3 (1.2-5.4); Lymphocytes % (Auto) 39.7 % (13.4-35.0); Mean Corpuscular HGB Conc 33 % (32-34); Mean Corpuscular Volume 88 fl (84-94); Monocytes # (Auto) 0.8 K/mm3 (0.0-0.8); Monocytes % (Auto) 11.2 % (0.0-7.3); Platelet Count 308 K/mm3 (140-440); Red Blood Count 3.78 M/mm3 (3.65-5.03); Red Cell Distribution Width 16.6 % (13.2-15.2)
[2019-07-23 01:41] LABS: BUN/Creatinine Ratio 16; Blood Urea Nitrogen 18 mg/dL (9-20); Calcium 8.6 mg/dL (8.4-10.2); Hemolysis Index 7
[2019-07-23] MEDS ORDERED: DELTASONE PO ONE (03:07)
--- NOTE | 2019-07-23 03:40 | Emergency Department Report ---
- General Chief Complaint: Dyspnea/Respdistress Stated Complaint: PNEUMONIA, SOB Time Seen by Provider: 07/23/19 03:00 Source: patient Mode of arrival: Ambulatory Limitations: No Limitations - History of Present Illness Initial Comments: 53-year-old male with a past medical history of asthma, continues smoking, hypertension, GERD, and chronic back pain presents to the hospital complaining of cough 3 weeks. Cough is productive of clear sputum. Patient reports fever initially but that has since improved. Patient had intermittent diarrhea, wheezing, shortness of breath. He denies recent travel or sick contacts. Patient taking [id number] medication without improvement. He complains of chest pain with coughing episodes. - Related Data Home Medications Medication Instructions Recorded Confirmed Last Taken Ranitidine HCl [Acid Ammonia Worker] 150 mg PO BID 01/24/16 09/28/18 09/27/18 Previous Rx's Medication Instructions Recorded Last Taken Type ALBUTEROL Inhaler (OR & NICU) 2 puff IH QID PRN #1 inhalation 02/17/16 09/27/18 Rx [ProAir HFA Inhaler] Cyclobenzaprine [Flexeril 10 MG 10 mg PO TID PRN #30 tablet 04/19/16 09/27/18 Rx TAB] Amitriptyline [Elavil] 25 mg PO QHS PRN #30 tab 01/16/17 Unknown Rx Atenolol [Tenormin] 25 mg PO DAILY #30 tablet 07/23/17 05/15/19 Rx hydroCHLOROthiazide [HCTZ] 25 mg PO DAILY #30 tablet 07/23/17 05/15/19 Rx Neomycin/Polymyxin B Sulf/Hc 4 drop AU TID #1 drops.susp 07/10/18 Unknown Rx [NEOMY/POLY/HC 3.5mg/15098zghxn/10mg OTIC] Famotidine [Pepcid] 20 mg PO BID #60 tablet 08/10/18 Unknown Rx Benzonatate [Tessalon Perles] 100 mg PO Q8HR PRN #20 capsule 09/18/18 Unknown Rx Cipro/Dexameth 0.3/0.1% [Ciprodex 4 drops OT BID #1 bottle 10/28/18 Unknown Rx OTIC] Neomy/Polymyx B/Hc (Otic) Soln 4 drops OT TID #1 bottle 11/15/18 Unknown Rx [Cortisporin (Otic) Soln] traMADol [Ultram 50 MG tab] 50 mg PO Q6HR PRN #12 tablet 11/15/18 Unknown Rx Dicyclomine [Bentyl] 20 mg PO QID #14 tablet 03/25/19 Unknown Rx Ondansetron [Zofran ODT TAB] 4 mg PO Q8HR PRN #20 tab.rapdis 03/25/19 Unknown Rx Sucralfate [Carafate] 1 gm PO Q6HR 30 Days udc 05/15/19 Unknown Rx oxyCODONE /ACETAMINOPHEN [Percocet 1 tab PO BID PRN #6 tablet 05/15/19 Unknown Rx 5/325] ALBUTEROL Inhaler (OR & NICU) 2 puff IH QID PRN #1 inhalation 07/23/19 Unknown Rx [ProAir HFA Inhaler] ALBUTEROL NEB's [Proventil 0.083% 2.5 mg IH TID PRN #30 neb 07/23/19 Unknown Rx NEBS] Benzonatate [Tessalon Perles] 100 mg PO Q8HR PRN #20 capsule 07/23/19 Unknown Rx Prednisone [predniSONE 10 mg 10 mg PO .TAPER #1 tab.ds.pk 07/23/19 Unknown Rx (6-Day Pack, 21 Tabs)] Allergies Allergy/AdvReac Type Severity Reaction Status Date / Time No Known Allergies Allergy Verified 10/28/18 15:17 ED Review of Systems ROS: Stated complaint: PNEUMONIA, SOB Other details as noted in HPI Comment: All other systems reviewed and negative ED Past Medical Hx - Past Medical History Previous Medical History?: Yes Hx Hypertension: Yes Hx GERD: Yes Hx Asthma: No Additional medical history: CHRONIC BACK PAIN, Post right hip surgery 10/03/17 - Surgical History Past Surgical History?: Yes Additional Surgical History: right hip replacement - Social History Smoking Status: Current Every Day Smoker Substance Use Type: Alcohol - Medications Home Medications: Home Medications Medication Instructions Recorded Confirmed Last Taken Type Ranitidine HCl [Acid Ammonia Worker] 150 mg PO BID 01/24/16 09/28/18 09/27/18 History ALBUTEROL Inhaler (OR & NICU) 2 puff IH QID PRN #1 inhalation 02/17/16 09/28/18 09/27/18 Rx [ProAir HFA Inhaler] Cyclobenzaprine [Flexeril 10 MG 10 mg PO TID PRN #30 tablet 04/19/16 09/28/18 09/27/18 Rx TAB] Amitriptyline [Elavil] 25 mg PO QHS PRN #30 tab 01/16/17 09/28/18 Unknown Rx Atenolol [Tenormin] 25 mg PO DAILY #30 tablet 07/23/17 05/15/19 05/15/19 Rx hydroCHLOROthiazide [HCTZ] 25 mg PO DAILY #30 tablet 07/23/17 05/15/19 05/15/19 Rx Neomycin/Polymyxin B Sulf/Hc 4 drop AU TID #1 drops.susp 07/10/18 09/28/18 Unknown Rx [NEOMY/POLY/HC 3.5mg/97784penjp/10mg OTIC] Famotidine [Pepcid] 20 mg PO BID #60 tablet 08/10/18 09/28/18 Unknown Rx Benzonatate [Tessalon Perles] 100 mg PO Q8HR PRN #20 capsule 09/18/18 09/28/18 Unknown Rx Cipro/Dexameth 0.3/0.1% [Ciprodex 4 drops OT BID #1 bottle 10/28/18 Unknown Rx OTIC] Neomy/Polymyx B/Hc (Otic) Soln 4 drops OT TID #1 bottle 11/15/18 Unknown Rx [Cortisporin (Otic) Soln] traMADol [Ultram 50 MG tab] 50 mg PO Q6HR PRN #12 tablet 11/15/18 Unknown Rx Dicyclomine [Bentyl] 20 mg PO QID #14 tablet 03/25/19 Unknown Rx Ondansetron [Zofran ODT TAB] 4 mg PO Q8HR PRN #20 tab.rapdis 03/25/19 Unknown Rx Sucralfate [Carafate] 1 gm PO Q6HR 30 Days udc 05/15/19 Unknown Rx oxyCODONE /ACETAMINOPHEN [Percocet 1 tab PO BID PRN #6 tablet 05/15/19 Unknown Rx 5/325] ALBUTEROL Inhaler (OR & NICU) 2 puff IH QID PRN #1 inhalation 07/23/19 Unknown Rx [ProAir HFA Inhaler] ALBUTEROL NEB's [Proventil 0.083% 2.5 mg IH TID PRN #30 neb 07/23/19 Unknown Rx NEBS] Benzonatate [Tessalon Perles] 100 mg PO Q8HR PRN #20 capsule 07/23/19 Unknown Rx Prednisone [predniSONE 10 mg 10 mg PO .TAPER #1 tab.ds.pk 07/23/19 Unknown Rx (6-Day Pack, 21 Tabs)] ED Physical Exam - General Limitations: No Limitations - Other Other exam information: Gen.: No acute distress Head: Atraumatic Eyes: Normal appearance EENT: Moist mucous membranes Neck: Normal appearance, no posterior midline tenderness, no meningismus Chest: Mild bilateral expiratory wheezes without tachypnea or accessory muscle use Cardiovascular: Regular rate and rhythm Abdomen: Normal appearance, soft, nontender, no rebound or guarding, normal bowel sounds Back: Normal appearance, nontender Extremity: Full range of motion, normal appearance, no edema Neuro: Alert, clear speech, no focal motor or sensory deficit Psychiatric: Appropriate skin: There is a ruptured small abscess at the right inguinal area adjacent to scrotum. No surrounding erythema ED Course Vital Signs 07/23/19 00:10 Temperature 98.1 F Pulse Rate 77 Respiratory 18 Rate Blood Pressure 143/85 O2 Sat by Pulse 100 Oximetry ED Medical Decision Making - Lab Data Result diagrams: 07/23/19 01:08 07/23/19 01:08 Lab Results 07/23/19 07/23/19 Range/Units 01:08 01:08 WBC 6.9 (4.5-11.0) K/mm3 RBC 3.78 (3.65-5.03) M/mm3 Hgb 10.9 L (11.8-15.2) gm/dl Hct 33.3 L (35.5-45.6) % MCV 88 (84-94) fl MCH 29 (28-32) pg MCHC 33 (32-34) % RDW 16.6 H (13.2-15.2) % Plt Count 308 (140-440) K/mm3 Lymph % (Auto) 39.7 H (13.4-35.0) % [place] % (Auto) 11.2 H (0.0-7.3) % Eos % (Auto) 5.1 H (0.0-4.3) % Baso % (Auto) 1.0 (0.0-1.8) % Lymph # 2.7 (1.2-5.4) K/mm3 [place] # 0.8 (0.0-0.8) K/mm3 Eos # 0.3 (0.0-0.4) K/mm3 Baso # 0.1 (0.0-0.1) K/mm3 Seg Neutrophils % 43.0 (40.0-70.0) % Seg Neutrophils # 3.0 (1.8-7.7) K/mm3 Sodium 144 (137-145) mmol/L Potassium 3.7 (3.6-5.0) mmol/L Chloride 105.6 (98-107) mmol/L Carbon Dioxide 26 (22-30) mmol/L Anion Gap 16 mmol/L BUN 18 (9-20) mg/dL Creatinine 1.1 (0.8-1.5) mg/dL Estimated GFR > 60 ml/min BUN/Creatinine Ratio 16 % Glucose 116 H (75-100) mg/dL Calcium 8.6 (8.4-10.2) mg/dL Troponin T < 0.010 (0.00-0.029) ng/mL - EKG Data -: EKG Interpreted by De EKG shows normal: sinus rhythm, axis (qrs 6), QRS complexes (qrsd 83), ST-T waves (no stemi) Rate: normal (73) - Radiology Data Radiology results: report reviewed CHEST 1 VIEW 0047 INDICATION / CLINICAL INFORMATION: Chest Pain. COMPARISON: 05/15/2019 FINDINGS: SUPPORT DEVICES: None HEART / MEDIASTINUM: No significant abnormality. LUNGS / PLEURA: No significant pulmonary or pleural abnormality. No pneumothorax. ADDITIONAL FINDINGS: No significant additional findings. IMPRESSION: No significant acute abnormality - Medical Decision Making Patient had a cough 3 weeks. Will be treated with Z-Shorty for atypical pneumonia however, patient does continue to smoke cigarettes. He declined offer for a nebulized treatment in the ED since he has minimal respiratory symptoms. He will be discharged with antibiotic, prednisone, nebs, and encouraged to follow up with his PMD. Patient provided prednisone prior to discharge - Differential Diagnosis pneumonia, bronchitis, COPD Critical Care Time: No Critical care attestation.: If time is entered above; I have spent that time in minutes in the direct care of this critically ill patient, excluding procedure time. ED Disposition Clinical Impression: Acute bronchitis Disposition: DC-01 TO HOME OR SELFCARE Is pt being admited?: No Does the pt Need Aspirin: No Condition: Stable Instructions: Acute Bronchitis (ED) Additional Instructions: Take the medication as prescribed. Follow-up with your doctor or with the doctor/clinic provided. Return if symptoms worsen as indicated by your discharge instructions. Prescriptions: Prednisone [predniSONE 10 mg (6-Day Pack, 21 Tabs)] 10 mg PO .TAPER #1 tab.ds.pk ALBUTEROL Inhaler (OR & NICU) [ProAir HFA Inhaler] 2 puff IH QID PRN #1 inhalation PRN Reason: Shortness Of Breath ALBUTEROL NEB's [Proventil 0.083% NEBS] 2.5 mg IH TID PRN #30 neb PRN Reason: Wheezing Benzonatate [Tessalon Perles] 100 mg PO Q8HR PRN #20 capsule PRN Reason: Cough Referrals: PRIMARY CARE, [Primary Care Provider] - 3-5 Days Time of Disposition: 03:42
[2019-07-23 03:44] VITALS: BP 150/90
== END 2019-07-23 03:54 | disposition home or self-care (01) ==
LOC: ED 00:04
DX: J20.9 Acute bronchitis, unspecified (principal); K21.9 Gastro-esophageal reflux disease without esophagitis; G89.29 Other chronic pain; I10 Essential (primary) hypertension; F17.200 Nicotine dependence, unspecified, uncomplicated; Z98.890 Other specified postprocedural states; Z79.899 Other long term (current) drug therapy
CPT/HCPCS: 36415; 71045; 80048; 84484; 85025; 93005; 93010; 99284; J7512

== ENCOUNTER 2019-12-17 14:11 | Emergency (ER) | payer OTHER | END 2019-12-17 17:25 | disposition left against medical advice (07) | LOC: ED 14:11 | DX: R22.9 Localized swelling, mass and lump, unspecified (principal); Z53.21 Procedure and treatment not carried out due to patient leaving prior to being seen by health care provider ==

== ENCOUNTER 2019-12-18 12:04 | Observation (INO) | payer OTHER ==
--- NOTE | 2019-12-18 12:29 | Cat Scan Report ---
CT HEAD WITHOUT CONTRAST INDICATION : MAIN: CODE STROKE CALL [phone] . TECHNIQUE: Axial imaging performed from the skull apex through the skull base without the use of con trast. Sagittal and coronal reformatted images. All CT scans at this location are performed using C T dose reduction for ALARA by means of automated exposure control. COMPARISON: None FINDINGS: Parenchyma: No acute intracranial hemorrhage or parenchymal abnormality. Ventricles: Ventricles are normal in size and appear symmetric. Bones: No acute osseous abnormality. Sinuses: Sinuses and mastoid air cells are clear. Soft tissues: Soft tissues including the orbits appear normal. IMPRESSION: No acute abnormality. These findings were discussed with Dr. Galeana in the emergency department at 1224 hours EST. Signer Name: Otis Padilla Jr, MD Signed: 12/18/2019 12:25 PM Workstation Name: [id number]
[2019-12-18] MEDS ORDERED: ACETAMINOPHEN 325 MG TAB PO PRN (12:40)
[2019-12-18] MEDS ORDERED: ONDANSETRON 4 MG/2 ML INJ IV PRN (12:40)
[2019-12-18] MEDS ORDERED: METOCLOPRAMIDE 10 MG TAB PO PRN (12:40)
[2019-12-18] MEDS ORDERED: MAGNESIUM HYDROXIDE (MOM) ORAL LIQD UDC PO PRN (12:40)
[2019-12-18] MEDS ORDERED: PROMETHAZINE 25 MG RECT SUPP PR PRN (12:40)
--- NOTE | 2019-12-18 12:43 | Emergency Department Report ---
ED Neuro Deficit HPI - General Chief Complaint: Neuro Symptoms/Deficit Stated Complaint: POSS STROKE Time Seen by Provider: 12/18/19 12:25 Source: patient Mode of arrival: Ambulatory Limitations: No Limitations - History of Present Illness Initial Comments: [facility] Date of Service: 12/18/2019 12:20:17 Impression: RO Acute Ischemic Stroke Comments: 54 year old male who presents with stuttering speech and increased shakiness. Presentation is diffuse and may be due to metabolic encephalopathy. Mechanism of Stroke: Not Clear Metrics: Last Known Well: Unknown [employer] Notification Time: 12/18/2019 12:19:38 Arrival Time: 12/18/2019 12:04:00 Stamp Time: 12/18/2019 12:20:17 Time First Login Attempt: 12/18/2019 12:26:26 Video Start Time: 12/18/2019 12:26:26 Symptoms: Stuttering speech NIHSS Start Assessment Time: 12/18/2019 12:29:10 Patient is not a candidate for tPA. Patient was not deemed candidate for tPA thrombolytics because of Last Well Known Above 4.5 Hours. Video End Time: 12/18/2019 12:38:05 CT head was reviewed. Presentation is not suggestive of Large Vessel Occlusive disease. Advanced imaging was not obtained as the presentation was not suggestive of Large Vessel Occlusive Disease. ED Physician notified of diagnostic impression and management plan on 12/18/2019 12:41:31 Our recommendations are outlined below. Recommendations: Activate Stroke Protocol Admission/Order Set Stroke/Telemetry Floor Neuro Checks Bedside Swallow Eval DVT Prophylaxis IV Fluids, Normal Saline Head of Bed Below 30 Degrees Euglycemia and Avoid Hyperthermia (PRN Acetaminophen) Antiplatelet Therapy Recommended Recommended Scan: MRI Head Without Contrast MRA Head and Neck Without Contrast When Available - Stroke Protocol Echocardiogram - Transthoracic Echocardiogram Lipid Panel to Be Obtained, if Not Done in the Last Three Months Therapies: Physical Therapy, Occupational Therapy, Speech Therapy Assessment When Applicable Dysphaghia Screen: Swallow Evaluation, Bedside NPO Until Swallow Evaluation DVT prophylaxis: Choice of Primary Team Disposition: Follow up with Teleneurology Follow up Sign Out: Discussed with Emergency Department Provider History of Present Illness: Patient is a 54 year old Male. Patient was brought by private transportation with symptoms of Stuttering speech 54 year old male who presents to the hospital because of stuttering speech and shaking of his hand or whole body. He maintains his awareness throughout the shaking episodes. The shaking never occurs when he is asleep per patient. On exam patient had some asterixis/ataxia of his arms and legs as well as decreased sensation on the right leg. CT head was reviewed. Examination: 1A: Level of Consciousness - Alert; keenly responsive + 0 1B: Ask Month and Age - Both Questions Right + 0 1C: Blink Eyes & Squeeze Hands - Performs Both Tasks + 0 2: Test Horizontal Extraocular Movements - Normal + 0 3: Test Visual [place] - No Visual Loss + 0 4: Test Facial Palsy (Use Grimace if Obtunded) - Normal symmetry + 0 5A: Test Left Arm Motor Drift - No Drift for 10 Seconds + 0 5B: Test Right Arm Motor Drift - No Drift for 10 Seconds + 0 6A: Test Left Leg Motor Drift - No Drift for 5 Seconds + 0 6B: Test Right Leg Motor Drift - No Drift for 5 Seconds + 0 7: Test Limb Ataxia (FNF/Heel-[place]) - Ataxia in 2 Limbs + 2 8: Test Sensation - Mild-Moderate Loss: Less Sharp/More Dull + 1 9: Test Language/Aphasia - Normal; No aphasia + 0 10: Test Dysarthria - Normal + 0 11: Test Extinction/Inattention - No abnormality + 0 NIHSS Score: 3 Patient was informed the Neurology Consult would happen via TeleHealth consult by way of interactive audio and video telecommunications and consented to receiving care in this manner. Due to the immediate potential for life-threatening deterioration due to underlying acute neurologic illness, I spent 35 minutes providing critical care. This time includes time for face to face visit via telemedicine, review of medical records, imaging studies and discussion of findings with providers, the patient and/or family. Dr Marlin Doshi [employer] Case [id number] - Related Data Home Medications: Home Medications Medication Instructions Recorded Confirmed Last Taken Ranitidine HCl [Acid Manager Of Warehouse] 150 mg PO BID 01/24/16 09/28/18 09/27/18 Previous Rx's Medication Instructions Recorded Last Taken Type Albuterol INH(or & Nicu Only) 2 puff IH QID PRN #1 inhalation 02/17/16 09/27/18 Rx [ProAir HFA Inhaler] Cyclobenzaprine [Flexeril 10 MG 10 mg PO TID PRN #30 tablet 04/19/16 09/27/18 Rx TAB] Amitriptyline [Elavil] 25 mg PO QHS PRN #30 tab 01/16/17 Unknown Rx atenoloL [Tenormin] 25 mg PO DAILY #30 tablet 07/23/17 05/15/19 Rx hydroCHLOROthiazide [HCTZ] 25 mg PO DAILY #30 tablet 07/23/17 05/15/19 Rx Neomycin/Polymyxin B Sulf/Hc 4 drop AU TID #1 drops.susp 07/10/18 Unknown Rx [NEOMY/POLY/HC 3.5mg/20342vbqtf/10mg OTIC] Famotidine [Pepcid] 20 mg PO BID #60 tablet 08/10/18 Unknown Rx Benzonatate [Tessalon Perles] 100 mg PO Q8HR PRN #20 capsule 09/18/18 Unknown Rx Cipro/Dexameth 0.3/0.1% [Ciprodex 4 drops OT BID #1 bottle 10/28/18 Unknown Rx OTIC] Neomy/Polymyx B/Hc (Otic) Soln 4 drops OT TID #1 bottle 11/15/18 Unknown Rx [Cortisporin (Otic) Soln] traMADoL [Ultram 50 MG tab] 50 mg PO Q6HR PRN #12 tablet 11/15/18 Unknown Rx Dicyclomine [Bentyl] 20 mg PO QID #14 tablet 03/25/19 Unknown Rx Ondansetron [Zofran ODT TAB] 4 mg PO Q8HR PRN #20 tab.rapdis 03/25/19 Unknown Rx Sucralfate [Carafate] 1 gm PO Q6HR 30 Days udc 05/15/19 Unknown Rx oxyCODONE /ACETAMINOPHEN [Percocet 1 tab PO BID PRN #6 tablet 05/15/19 Unknown Rx 5/325] ALBUTEROL NEB's [Proventil 0.083% 2.5 mg IH TID PRN #30 neb 07/23/19 Unknown Rx NEBS] Albuterol INH(or & Nicu Only) 2 puff IH QID PRN #1 inhalation 07/23/19 Unknown Rx [ProAir HFA Inhaler] Benzonatate [Tessalon Perles] 100 mg PO Q8HR PRN #20 capsule 07/23/19 Unknown Rx Prednisone [predniSONE 10 mg 10 mg PO .TAPER #1 tab.ds.pk 07/23/19 Unknown Rx (6-Day Pack, 21 Tabs)] Allergies/Adverse Reactions: Allergies Allergy/AdvReac Type Severity Reaction Status Date / Time No Known Allergies Allergy Verified 10/28/18 15:17 ED Review of Systems ROS: Stated complaint: POSS STROKE Other details as noted in HPI ED Past Medical Hx - Past Medical History Previous Medical History?: Yes Hx Hypertension: Yes Hx GERD: Yes Hx Asthma: No Additional medical history: CHRONIC BACK PAIN, Post right hip surgery 10/03/17 - Surgical History Past Surgical History?: Yes Additional Surgical History: right hip replacement - Social History Smoking Status: Current Every Day Smoker Substance Use Type: Alcohol - Medications Home Medications: Home Medications Medication Instructions Recorded Confirmed Last Taken Type Ranitidine HCl [Acid Manager Of Warehouse] 150 mg PO BID 01/24/16 09/28/18 09/27/18 History Albuterol INH(or & Nicu Only) 2 puff IH QID PRN #1 inhalation 02/17/16 09/28/18 09/27/18 Rx [ProAir HFA Inhaler] Cyclobenzaprine [Flexeril 10 MG 10 mg PO TID PRN #30 tablet 04/19/16 09/28/18 09/27/18 Rx TAB] Amitriptyline [Elavil] 25 mg PO QHS PRN #30 tab 01/16/17 09/28/18 Unknown Rx atenoloL [Tenormin] 25 mg PO DAILY #30 tablet 07/23/17 05/15/19 05/15/19 Rx hydroCHLOROthiazide [HCTZ] 25 mg PO DAILY #30 tablet 07/23/17 05/15/19 05/15/19 Rx Neomycin/Polymyxin B Sulf/Hc 4 drop AU TID #1 drops.susp 07/10/18 09/28/18 Unknown Rx [NEOMY/POLY/HC 3.5mg/55108dwrrd/10mg OTIC] Famotidine [Pepcid] 20 mg PO BID #60 tablet 08/10/18 09/28/18 Unknown Rx Benzonatate [Tessalon Perles] 100 mg PO Q8HR PRN #20 capsule 09/18/18 09/28/18 Unknown Rx Cipro/Dexameth 0.3/0.1% [Ciprodex 4 drops OT BID #1 bottle 10/28/18 Unknown Rx OTIC] Neomy/Polymyx B/Hc (Otic) Soln 4 drops OT TID #1 bottle 11/15/18 Unknown Rx [Cortisporin (Otic) Soln] traMADoL [Ultram 50 MG tab] 50 mg PO Q6HR PRN #12 tablet 11/15/18 Unknown Rx Dicyclomine [Bentyl] 20 mg PO QID #14 tablet 03/25/19 Unknown Rx Ondansetron [Zofran ODT TAB] 4 mg PO Q8HR PRN #20 tab.rapdis 03/25/19 Unknown Rx Sucralfate [Carafate] 1 gm PO Q6HR 30 Days udc 05/15/19 Unknown Rx oxyCODONE /ACETAMINOPHEN [Percocet 1 tab PO BID PRN #6 tablet 05/15/19 Unknown Rx 5/325] ALBUTEROL NEB's [Proventil 0.083% 2.5 mg IH TID PRN #30 neb 07/23/19 Unknown Rx NEBS] Albuterol INH(or & Nicu Only) 2 puff IH QID PRN #1 inhalation 07/23/19 Unknown Rx [ProAir HFA Inhaler] Benzonatate [Tessalon Perles] 100 mg PO Q8HR PRN #20 capsule 07/23/19 Unknown Rx Prednisone [predniSONE 10 mg 10 mg PO .TAPER #1 tab.ds.pk 07/23/19 Unknown Rx (6-Day Pack, 21 Tabs)] ED Neuro Physical Exam - General Limitations: No Limitations Suspected Stroke: No - NIHSS Assessment Interval: Baseline 1a. Level of Consciousness: alert/keenly responsive 1b. LOC Questions: answers both correctly 1c. LOC Commands: performs tasks correctly 2. Best Gaze: normal 3. Visual: no visual loss 4. Facial Palsy: normal symmetrical movement 5b. Motor Arm Right: no drift 5a. Motor Arm Left: no drift 6a. Motor Leg Left: no drift 6b. Motor Leg Right: no drift 7. Limb Ataxia: present 2 limbs 8. Sensory: mild/moderate sensory loss 9. Best Language: no aphasia 10. Dysarthria: normal 11. Extinction/Inattention: no abnormality Total Score: 3 Stroke Severity: Minor Stroke - Lab Data Lab Results 12/18/19 Range/Units 12:43 POC Glucose 87 (70-105) Critical care attestation.: If time is entered above; I have spent that time in minutes in the direct care of this critically ill patient, excluding procedure time. ED Disposition Clinical Impression: Ataxia Disposition: DC-09 OP ADMIT IP TO THIS HOSP Is pt being admited?: Yes Condition: Stable Referrals: PRIMARY CARE, [Primary Care Provider] - 3-5 Days
--- NOTE | 2019-12-18 12:55 | History and Physical Report ---
History of Present Illness Chief complaint: I felt we, right side and I could not talk right History of present illness: 54-year-old male with HTN, PUD, GERD, Asthma, nicotine dependence presents to ED for evaluation. Patient states that he was in his usual state of health at bedtime around 2200 hrs. Patient states that he awoke from sleep and noticed that he felt weak on his right side and was unable to speak clearly. Patient states that he experienced stuttering and an inability to speak clearly. Patient transported to [facility] via private vehicle. Patient seen and evaluated in the emergency department. Lab and imaging studies reviewed. Patient found to have neurologic deficit and a code stroke was called. Tele-neurology consulted. Upon evaluationthe patient was found to have symptoms consistent with CVA and admitted to the medical floor for medical stabilization due to increased risk for decompensation. Patient initiated on CVA protocol. Neurology consulted as well. Patient denies fever, chills, chest pain, palpitations, shortness of breath, NVD, syncope, trauma, productive cough, recent ill contacts. Prior admission on 05/15/2019 reviewed. All medication listed at time of exam is been reconciled. Patient counseled regarding alcohol use. Patient denies emphatically the use of alcohol patient also denies history of alcohol use or abuse. Past History Past Medical History: GERD, hypertension, other (See HPI) Past Surgical History: total hip replacement Social history: smoking Family history: hypertension Medications and Allergies Allergies Allergy/AdvReac Type Severity Reaction Status Date / Time No Known Allergies Allergy Verified 10/28/18 15:17 Home Medications Medication Instructions Recorded Confirmed Last Taken Type Ranitidine HCl [Acid Account Maintenance Representative] 150 mg PO BID 01/24/16 09/28/18 09/27/18 History Albuterol INH(or & Nicu Only) 2 puff IH QID PRN #1 inhalation 02/17/16 09/28/18 09/27/18 Rx [ProAir HFA Inhaler] Cyclobenzaprine [Flexeril 10 MG 10 mg PO TID PRN #30 tablet 04/19/16 09/28/18 09/27/18 Rx TAB] Amitriptyline [Elavil] 25 mg PO QHS PRN #30 tab 01/16/17 09/28/18 Unknown Rx atenoloL [Tenormin] 25 mg PO DAILY #30 tablet 07/23/17 05/15/19 05/15/19 Rx hydroCHLOROthiazide [HCTZ] 25 mg PO DAILY #30 tablet 07/23/17 05/15/19 05/15/19 Rx Neomycin/Polymyxin B Sulf/Hc 4 drop AU TID #1 drops.susp 07/10/18 09/28/18 Unknown Rx [NEOMY/POLY/HC 3.5mg/[id number]/10mg OTIC] Famotidine [Pepcid] 20 mg PO BID #60 tablet 08/10/18 09/28/18 Unknown Rx Benzonatate [Tessalon Perles] 100 mg PO Q8HR PRN #20 capsule 09/18/18 09/28/18 Unknown Rx Cipro/Dexameth 0.3/0.1% [Ciprodex 4 drops OT BID #1 bottle 10/28/18 Unknown Rx OTIC] Neomy/Polymyx B/Hc (Otic) Soln 4 drops OT TID #1 bottle 11/15/18 Unknown Rx [Cortisporin (Otic) Soln] traMADoL [Ultram 50 MG tab] 50 mg PO Q6HR PRN #12 tablet 11/15/18 Unknown Rx Dicyclomine [Bentyl] 20 mg PO QID #14 tablet 03/25/19 Unknown Rx Ondansetron [Zofran ODT TAB] 4 mg PO Q8HR PRN #20 tab.rapdis 03/25/19 Unknown Rx Sucralfate [Carafate] 1 gm PO Q6HR 30 Days udc 05/15/19 Unknown Rx oxyCODONE /ACETAMINOPHEN [Percocet 1 tab PO BID PRN #6 tablet 05/15/19 Unknown Rx 5/325] ALBUTEROL NEB's [Proventil 0.083% 2.5 mg IH TID PRN #30 neb 07/23/19 Unknown Rx NEBS] Albuterol INH(or & Nicu Only) 2 puff IH QID PRN #1 inhalation 07/23/19 Unknown Rx [ProAir HFA Inhaler] Benzonatate [Tessalon Perles] 100 mg PO Q8HR PRN #20 capsule 07/23/19 Unknown Rx Prednisone [predniSONE 10 mg 10 mg PO .TAPER #1 tab.ds.pk 07/23/19 Unknown Rx (6-Day Pack, 21 Tabs)] Active Meds: Active Medications Acetaminophen (Tylenol) 650 mg PO Q4H PRN PRN Reason: Pain, Mild (1-3) Aspirin (Aspirin) 325 mg PO QDAY BROCK Atorvastatin Calcium (Lipitor) 40 mg PO QHS BROCK Bisacodyl (Dulcolax) 10 mg ND QDAY PRN PRN Reason: Constipation Magnesium Hydroxide (Milk Of Magnesia) 30 ml PO Q4H PRN PRN Reason: Constipation Metoclopramide HCl (Reglan) 10 mg PO Q6H PRN PRN Reason: Nausea And Vomiting Ondansetron HCl (Zofran) 4 mg IV Q8H PRN PRN Reason: Nausea And Vomiting Promethazine HCl (Phenergan) 25 mg ND Q6H PRN PRN Reason: Nausea And Vomiting Sodium Chloride (Sodium Chloride Flush Syringe 10 Ml) 10 ml IV PRN PRN PRN Reason: LINE FLUSH Review of Systems Constitutional: no weight loss, no weight gain, no fever, no chills Ears, nose, mouth and throat: no ear pain, no ear discharge, no tinnitis, no decreased hearing Cardiovascular: no chest pain, no orthopnea, no palpitations, no rapid/irregular heart beat, no edema, no lightheadedness Respiratory: no cough, no cough with sputum, no excessive sputum, no hemoptysis, no shortness of breath Gastrointestinal: no abdominal pain, no nausea, no vomiting, no diarrhea, no change in bowel habits Genitourinary Male: no hematuria, no discharge, no urinary hesitancy Rectal: no pain, no incontinence, no bleeding Musculoskeletal: no neck stiffness, no neck pain, no arm numbness/tingling, no shooting leg pain Integumentary: no rash, no pruritis, no sores, no wounds, no jaundice Neurological: weakness, lack of coordination, change in speech, balance difficulties, gait dysfunction, no head injury, no paralysis, no seizures, no syncope, no migraines, no tic, no convulsions Psychiatric: no anxiety, no memory loss, no change in sleep habits, no sleep disturbances, no hypersomnia, no change in appetite, no change in libido Endocrine: no cold intolerance, no heat intolerance, no excessive thirst, no polyuria Hematologic/Lymphatic: no easy bruising, no easy bleeding, no lymphadenopathy Allergic/Immunologic: no urticaria, no allergic rhinitis, no anaphylaxis Exam - Constitutional General appearance: Present: mild distress - EENT Eyes: Present: PERRL ENT: hearing intact, clear oral mucosa - Neck Neck: Present: supple, normal ROM - Respiratory Respiratory effort: normal Respiratory: bilateral: CTA - Cardiovascular Heart Sounds: Present: S1 & S2. Absent: rub, click - Extremities Extremities: pulses symmetrical, No edema Peripheral Pulses: within normal limits - Abdominal General gastrointestinal: Present: soft, non-tender, non-distended, normal bowel sounds Male genitourinary: Present: normal - Integumentary Integumentary: Present: clear, warm, dry - Musculoskeletal Musculoskeletal: right sided weakness - Psychiatric Psychiatric: appropriate mood/affect, intact judgment & insight - Neurologic Neurologic: CNII-XII intact, moves all extremities, no gait normal Assessment and Plan - Patient Problems (1) CVA (cerebral vascular accident) Current Visit: Yes Status: Acute Qualifiers: Precerebral and cerebral artery: middle cerebral artery Laterality of affected vessel: left Plan to address problem: CVA protocol: CT head, neurochecks, carotid Doppler, echocardiogram, antiplatelet therapy, lipid panel, physical therapy, Occupational Therapy, speech therapy, neurology consulted. (2) Nicotine dependence Current Visit: Yes Status: Acute Qualifiers: Nicotine product type: cigarettes Substance use status: in withdrawal Qualified Code(s): F17.213 - Nicotine dependence, cigarettes, with withdrawal Plan to address problem: Supportive care, smoking cessation counseling, +15 minutes. (3) GERD (gastroesophageal reflux disease) Current Visit: Yes Status: Acute Qualifiers: Esophagitis presence: without esophagitis Qualified Code(s): K21.9 - Gastro-esophageal reflux disease without esophagitis Plan to address problem: PPI therapy, supportive care, outpatient GI follow-up. (4) PUD (peptic ulcer disease) Current Visit: Yes Status: Acute Plan to address problem: PPI therapy, supportive care, outpatient GI follow-up. (5) Hypertensive urgency Current Visit: No Status: Acute Plan to address problem: Monitor blood pressure every shift, permissive hypertension overnight, goal systolic blood pressure between 155 and 175 overnight. IV hydralazine as needed. (6) DVT prophylaxis Current Visit: Yes Status: Acute Plan to address problem: SCD to bilateral lower extremities while in bed, patient ambulatory.
[2019-12-18] MEDS ORDERED: LORazepam 2 MG/ML VIAL IV ONE (13:01)
[2019-12-18 13:10] LABS: Basophils # (Auto) 0.1 K/mm3 (0.0-0.1); Basophils % (Auto) 0.6 % (0.0-1.8); Eosinophils # (Auto) 0.5 K/mm3 (0.0-0.4); Eosinophils % (Auto) 4.2 % (0.0-4.3); Hematocrit 37.2 % (35.5-45.6); Hemoglobin 11.9 gm/dl (11.8-15.2); Lymphocytes # (Auto) 2.5 K/mm3 (1.2-5.4); Lymphocytes % (Auto) 23.7 % (13.4-35.0); Mean Corpuscular HGB Conc 32 % (32-34); Mean Corpuscular Volume 83 fl (84-94); Monocytes # (Auto) 0.9 K/mm3 (0.0-0.8); Monocytes % (Auto) 8.4 % (0.0-7.3); Red Blood Count 4.48 M/mm3 (3.65-5.03)
--- NOTE | 2019-12-18 13:14 | XRay Report ---
CHEST 1 VIEW 12/18/2019 12:49 PM INDICATION / CLINICAL INFORMATION: hypertension. COMPARISON: 07/23/2019 FINDINGS: SUPPORT DEVICES: None. HEART / MEDIASTINUM: No significant abnormality. LUNGS / PLEURA: No significant pulmonary or pleural abnormality. No pneumothorax. ADDITIONAL FINDINGS: No significant additional findings. IMPRESSION: 1. No acute findings. Signer Name: Gold Martin MD Signed: 12/18/2019 1:09 PM Workstation Name: [id number]
[2019-12-18] MEDS ORDERED: FOLIC ACID 1 MG TAB PO SCH (13:15)
[2019-12-18] MEDS ORDERED: THIAMINE 100 MG TAB PO ONE (13:15)
[2019-12-18] MEDS ORDERED: MULTIVITAMINS ,THERAPEUTIC TAB PO ONE (13:15)
[2019-12-18 13:16] LABS: INR 0.92 (0.87-1.13); Partial Thromboplastin Time 21.7 Sec. (24.2-36.6); Thrombin Time 13.6 Sec. (15.1-19.6)
[2019-12-18] MEDS ORDERED: LORazepam 2 MG/ML VIAL IV PRN (13:18)
[2019-12-18 13:29] LABS: BUN/Creatinine Ratio 19; Blood Urea Nitrogen 21 mg/dL (9-20); Calcium 8.9 mg/dL (8.4-10.2); Hemolysis Index 13
--- NOTE | 2019-12-18 13:43 | Emergency Department Report ---
ED Neuro Deficit HPI - General Chief Complaint: Neuro Symptoms/Deficit Stated Complaint: POSS STROKE Time Seen by Provider: 12/18/19 12:25 Source: patient Mode of arrival: Ambulatory Limitations: No Limitations - History of Present Illness Initial Comments: This is a 54-year-old man that arrived as a code stroke. He had symptoms upon waking up this morning. He went to sleep at about 11 PM last night. According to the triage record he had right arm weakness he woke up. However he did not relate this symptom to the tele-neurologist. He also did not related to me. He complained of "stuttering" speech and/or not talking right. He was shaky. He did not have any facial numbness or paresis. He did not have any lateralizing symptoms or gait disturbance when I obtained this history. The patient told me that he does not drink alcohol. Immediately there after he admitted to drinking beer but stated it was not "a lot". He denies tremulousness on cessation of alcohol in the past. He has never been admitted for detox. He has no history of prior seizure. His previous occasion list does include amitriptyline Tenormin Norma Beckham albuterol and oxycodone. I do not think he is under regular medical care. -: During the night Location: speech Presenting Symptoms: Present: Unable to Speak Clearly History of same: No Place: home Severity: moderate Improves With: time Worsens With: none On Anticoagulants: No Context: other (during the night) Associated Symptoms: denies other symptoms Treatments Prior to Arrival: none - Related Data Home Medications: Home Medications Medication Instructions Recorded Confirmed Last Taken Ranitidine HCl [Acid Brick Setter Operator] 150 mg PO BID 01/24/16 09/28/18 09/27/18 Previous Rx's Medication Instructions Recorded Last Taken Type Albuterol INH(or & Nicu Only) 2 puff IH QID PRN #1 inhalation 02/17/16 09/27/18 Rx [ProAir HFA Inhaler] Cyclobenzaprine [Flexeril 10 MG 10 mg PO TID PRN #30 tablet 04/19/16 09/27/18 Rx TAB] Amitriptyline [Elavil] 25 mg PO QHS PRN #30 tab 01/16/17 Unknown Rx atenoloL [Tenormin] 25 mg PO DAILY #30 tablet 07/23/17 05/15/19 Rx hydroCHLOROthiazide [HCTZ] 25 mg PO DAILY #30 tablet 07/23/17 05/15/19 Rx Neomycin/Polymyxin B Sulf/Hc 4 drop AU TID #1 drops.susp 07/10/18 Unknown Rx [NEOMY/POLY/HC 3.5mg/37270jvukh/10mg OTIC] Famotidine [Pepcid] 20 mg PO BID #60 tablet 08/10/18 Unknown Rx Benzonatate [Tessalon Perles] 100 mg PO Q8HR PRN #20 capsule 09/18/18 Unknown Rx Cipro/Dexameth 0.3/0.1% [Ciprodex 4 drops OT BID #1 bottle 10/28/18 Unknown Rx OTIC] Neomy/Polymyx B/Hc (Otic) Soln 4 drops OT TID #1 bottle 11/15/18 Unknown Rx [Cortisporin (Otic) Soln] traMADoL [Ultram 50 MG tab] 50 mg PO Q6HR PRN #12 tablet 11/15/18 Unknown Rx Dicyclomine [Bentyl] 20 mg PO QID #14 tablet 03/25/19 Unknown Rx Ondansetron [Zofran ODT TAB] 4 mg PO Q8HR PRN #20 tab.rapdis 03/25/19 Unknown Rx Sucralfate [Carafate] 1 gm PO Q6HR 30 Days udc 05/15/19 Unknown Rx oxyCODONE /ACETAMINOPHEN [Percocet 1 tab PO BID PRN #6 tablet 05/15/19 Unknown Rx 5/325] ALBUTEROL NEB's [Proventil 0.083% 2.5 mg IH TID PRN #30 neb 07/23/19 Unknown Rx NEBS] Albuterol INH(or & Nicu Only) 2 puff IH QID PRN #1 inhalation 07/23/19 Unknown Rx [ProAir HFA Inhaler] Benzonatate [Tessalon Perles] 100 mg PO Q8HR PRN #20 capsule 07/23/19 Unknown Rx Prednisone [predniSONE 10 mg 10 mg PO .TAPER #1 tab.ds.pk 07/23/19 Unknown Rx (6-Day Pack, 21 Tabs)] Allergies/Adverse Reactions: Allergies Allergy/AdvReac Type Severity Reaction Status Date / Time No Known Allergies Allergy Verified 10/28/18 15:17 ED Review of Systems ROS: Stated complaint: POSS STROKE Other details as noted in HPI Constitutional: denies: chills, fever Eyes: denies: eye pain, eye discharge, vision change ENT: denies: ear pain, throat pain Respiratory: denies: cough, shortness of breath, wheezing Cardiovascular: denies: chest pain, palpitations Endocrine: no symptoms reported Gastrointestinal: denies: abdominal pain, nausea, diarrhea Genitourinary: denies: urgency, dysuria Musculoskeletal: denies: back pain, joint swelling, arthralgia Skin: denies: rash, lesions Neurological: denies: headache, weakness, numbness, paresthesias Psychiatric: denies: anxiety, depression Hematological/Lymphatic: denies: easy bleeding, easy bruising ED Past Medical Hx - Past Medical History Previous Medical History?: Yes Hx Hypertension: Yes Hx GERD: Yes Hx Asthma: No Additional medical history: CHRONIC BACK PAIN, Post right hip surgery 10/03/17 - Surgical History Past Surgical History?: Yes Additional Surgical History: right hip replacement - Social History Smoking Status: Current Every Day Smoker Substance Use Type: Alcohol - Medications Home Medications: Home Medications Medication Instructions Recorded Confirmed Last Taken Type Ranitidine HCl [Acid Brick Setter Operator] 150 mg PO BID 01/24/16 09/28/18 09/27/18 History Albuterol INH(or & Nicu Only) 2 puff IH QID PRN #1 inhalation 02/17/16 09/28/18 09/27/18 Rx [ProAir HFA Inhaler] Cyclobenzaprine [Flexeril 10 MG 10 mg PO TID PRN #30 tablet 04/19/16 09/28/18 09/27/18 Rx TAB] Amitriptyline [Elavil] 25 mg PO QHS PRN #30 tab 01/16/17 09/28/18 Unknown Rx atenoloL [Tenormin] 25 mg PO DAILY #30 tablet 07/23/17 05/15/19 05/15/19 Rx hydroCHLOROthiazide [HCTZ] 25 mg PO DAILY #30 tablet 07/23/17 05/15/19 05/15/19 Rx Neomycin/Polymyxin B Sulf/Hc 4 drop AU TID #1 drops.susp 07/10/18 09/28/18 Unknown Rx [NEOMY/POLY/HC 3.5mg/66372uhttm/10mg OTIC] Famotidine [Pepcid] 20 mg PO BID #60 tablet 08/10/18 09/28/18 Unknown Rx Benzonatate [Tessalon Perles] 100 mg PO Q8HR PRN #20 capsule 09/18/18 09/28/18 Unknown Rx Cipro/Dexameth 0.3/0.1% [Ciprodex 4 drops OT BID #1 bottle 10/28/18 Unknown Rx OTIC] Neomy/Polymyx B/Hc (Otic) Soln 4 drops OT TID #1 bottle 11/15/18 Unknown Rx [Cortisporin (Otic) Soln] traMADoL [Ultram 50 MG tab] 50 mg PO Q6HR PRN #12 tablet 11/15/18 Unknown Rx Dicyclomine [Bentyl] 20 mg PO QID #14 tablet 03/25/19 Unknown Rx Ondansetron [Zofran ODT TAB] 4 mg PO Q8HR PRN #20 tab.rapdis 03/25/19 Unknown Rx Sucralfate [Carafate] 1 gm PO Q6HR 30 Days udc 05/15/19 Unknown Rx oxyCODONE /ACETAMINOPHEN [Percocet 1 tab PO BID PRN #6 tablet 05/15/19 Unknown Rx 5/325] ALBUTEROL NEB's [Proventil 0.083% 2.5 mg IH TID PRN #30 neb 07/23/19 Unknown Rx NEBS] Albuterol INH(or & Nicu Only) 2 puff IH QID PRN #1 inhalation 07/23/19 Unknown Rx [ProAir HFA Inhaler] Benzonatate [Tessalon Perles] 100 mg PO Q8HR PRN #20 capsule 07/23/19 Unknown Rx Prednisone [predniSONE 10 mg 10 mg PO .TAPER #1 tab.ds.pk 07/23/19 Unknown Rx (6-Day Pack, 21 Tabs)] ED Neuro Physical Exam - General Limitations: No Limitations General appearance: alert, in no apparent distress, other Suspected Stroke: No - Head Head exam: Present: atraumatic, normocephalic - Eye Eye exam: Present: normal appearance. Absent: scleral icterus - ENT ENT exam: Present: mucous membranes moist - Neck Neck exam: Present: normal inspection. Absent: tenderness, meningismus - Respiratory Respiratory exam: Present: normal lung sounds bilaterally. Absent: respiratory distress - Cardiovascular Cardiovascular Exam: Present: regular rate, normal rhythm. Absent: systolic mu rmur, diastolic murmur, rubs, gallop - GI/Abdominal GI/Abdominal exam: Present: soft, normal bowel sounds. Absent: distended, tenderness, guarding, rebound, rigid - Rectal Rectal exam: Present: deferred - Extremities Exam Extremities exam: Present: normal inspection - Back Exam Back exam: Present: normal inspection - Neurological Exam Neurological exam: Present: alert, oriented X3, CN II-XII intact. Absent: motor sensory deficit - NIHSS Assessment Interval: Baseline 1a. Level of Consciousness: alert/keenly responsive 1b. LOC Questions: answers both correctly 1c. LOC Commands: performs tasks correctly 2. Best Gaze: normal 3. Visual: no visual loss 4. Facial Palsy: normal symmetrical movement 5b. Motor Arm Right: no drift 5a. Motor Arm Left: no drift 6a. Motor Leg Left: no drift 6b. Motor Leg Right: no drift 7. Limb Ataxia: present 2 limbs 8. Sensory: normal 9. Best Language: no aphasia 10. Dysarthria: mild/moderate dysarthria (slight stuttering) 11. Extinction/Inattention: no abnormality Total Score: 3 Stroke Severity: Minor Stroke - Psychiatric Psychiatric exam: Present: normal affect, normal mood - Skin Skin exam: Present: warm, dry, intact, normal color. Absent: rash ED Course Vital Signs 12/18/19 12/18/19 13:09 13:10 Temperature 98.2 F Pulse Rate 70 Respiratory 10 L Rate Blood Pressure 135/82 [Left] O2 Sat by Pulse 96 96 Oximetry - Reevaluation(s) Reevaluation #1: I consulted with the tele-neurologist. They stated that the patient had bilateral asterixis. Essentially looked to me like sign of a metabolic problem possible withdrawal from alcohol. Additional laboratory database was ordered. The patient did not meet criteria for TPA being outside the window. The neurologist did not recommend any emergent imaging beyond the CT which was normal. The patient was given a milligram of Ativan. He is admitted by Dr. Lubin to the hospitalist service further care and evaluation. 12/18/19 13:47 - Lab Data Result diagrams: 12/18/19 12:28 12/18/19 12:28 Lab Results 12/18/19 12/18/19 12/18/19 Range/Units 12:28 12:28 12:28 WBC 10.7 (4.5-11.0) K/mm3 RBC 4.48 (3.65-5.03) M/mm3 Hgb 11.9 (11.8-15.2) gm/dl Hct 37.2 (35.5-45.6) % MCV 83 L (84-94) fl MCH 27 L (28-32) pg MCHC 32 (32-34) % RDW 19.0 H (13.2-15.2) % Lymph % (Auto) 23.7 (13.4-35.0) % Gosper % (Auto) 8.4 H (0.0-7.3) % Eos % (Auto) 4.2 (0.0-4.3) % Baso % (Auto) 0.6 (0.0-1.8) % Lymph # 2.5 (1.2-5.4) K/mm3 Gosper # 0.9 H (0.0-0.8) K/mm3 Eos # 0.5 H (0.0-0.4) K/mm3 Baso # 0.1 (0.0-0.1) K/mm3 Seg Neutrophils % 63.1 (40.0-70.0) % Seg Neutrophils # 6.7 (1.8-7.7) K/mm3 PT 12.5 (12.2-14.9) Sec. INR 0.92 (0.87-1.13) APTT 21.7 L (24.2-36.6) Sec. Thrombin Time 13.6 L (15.1-19.6) Sec. Sodium 137 (137-145) mmol/L Potassium 4.1 (3.6-5.0) mmol/L Chloride 100.0 (98-107) mmol/L Carbon Dioxide 20 L (22-30) mmol/L Anion Gap 21 mmol/L BUN 21 H (9-20) mg/dL Creatinine 1.1 (0.8-1.5) mg/dL Estimated GFR > 60 ml/min BUN/Creatinine Ratio 19 % Glucose 105 H (75-100) mg/dL POC Glucose (70-105) Calcium 8.9 (8.4-10.2) mg/dL Troponin T < 0.010 (0.00-0.029) ng/mL 12/18/19 Range/Units 12:43 WBC (4.5-11.0) K/mm3 RBC (3.65-5.03) M/mm3 Hgb (11.8-15.2) gm/dl Hct (35.5-45.6) % MCV (84-94) fl MCH (28-32) pg MCHC (32-34) % RDW (13.2-15.2) % Lymph % (Auto) (13.4-35.0) % Gosper % (Auto) (0.0-7.3) % Eos % (Auto) (0.0-4.3) % Baso % (Auto) (0.0-1.8) % Lymph # (1.2-5.4) K/mm3 Gosper # (0.0-0.8) K/mm3 Eos # (0.0-0.4) K/mm3 Baso # (0.0-0.1) K/mm3 Seg Neutrophils % (40.0-70.0) % Seg Neutrophils # (1.8-7.7) K/mm3 PT (12.2-14.9) Sec. INR (0.87-1.13) APTT (24.2-36.6) Sec. Thrombin Time (15.1-19.6) Sec. Sodium (137-145) mmol/L Potassium (3.6-5.0) mmol/L Chloride (98-107) mmol/L Carbon Dioxide (22-30) mmol/L Anion Gap mmol/L BUN (9-20) mg/dL Creatinine (0.8-1.5) mg/dL Estimated GFR ml/min BUN/Creatinine Ratio % Glucose (75-100) mg/dL POC Glucose 87 (70-105) Calcium (8.4-10.2) mg/dL Troponin T (0.00-0.029) ng/mL Laboratory Results - last 24 hr 12/18/19 12/18/19 12/18/19 12:28 12:28 12:28 WBC 10.7 RBC 4.48 Hgb 11.9 Hct 37.2 MCV 83 L MCH 27 L MCHC 32 RDW 19.0 H Lymph % (Auto) 23.7 Gosper % (Auto) 8.4 H Eos % (Auto) 4.2 Baso % (Auto) 0.6 Lymph # 2.5 Gosper # 0.9 H Eos # 0.5 H Baso # 0.1 Seg Neutrophils % 63.1 Seg Neutrophils # 6.7 PT 12.5 INR 0.92 APTT 21.7 L Thrombin Time 13.6 L Sodium 137 Potassium 4.1 Chloride 100.0 Carbon Dioxide 20 L Anion Gap 21 BUN 21 H Creatinine 1.1 Estimated GFR > 60 BUN/Creatinine Ratio 19 Glucose 105 H POC Glucose Calcium 8.9 Troponin T < 0.010 12/18/19 12:43 WBC RBC Hgb Hct MCV MCH MCHC RDW Lymph % (Auto) Gosper % (Auto) Eos % (Auto) Baso % (Auto) Lymph # Gosper # Eos # Baso # Seg Neutrophils % Seg Neutrophils # PT INR APTT Thrombin Time Sodium Potassium Chloride Carbon Dioxide Anion Gap BUN Creatinine Estimated GFR BUN/Creatinine Ratio Glucose POC Glucose 87 Calcium Troponin T - EKG Data -: EKG Interpreted by Me EKG shows normal: sinus rhythm, axis, intervals, QRS complexes (increased voltage), ST-T waves Rate: normal Interpretation: no acute changes, LVH (by voltage) - Radiology Data Radiology results: report reviewed (discussed with radiologist no acute process CT head. Chest x-ray no acute process) Critical care attestation.: If time is entered above; I have spent that time in minutes in the direct care of this critically ill patient, excluding procedure time. ED Disposition Clinical Impression: Limb ataxia in two extremities, Dysarthria Disposition: 09 OP ADMIT IP TO THIS HOSP Is pt being admited?: Yes Does the pt Need Aspirin: Yes Condition: Stable Referrals: PRIMARY CARE, [Primary Care Provider] - 3-5 Days Time of Disposition: 13:51
[2019-12-18] MEDS ORDERED: LORazepam 2 MG/ML VIAL ONE (13:44)
[2019-12-18 14:08] LABS: Alanine Aminotransferase 16 units/L (7-56); Albumin 3.7 g/dL (3.9-5)
[2019-12-18 14:14] LABS: Bilirubin,Direct < 0.2 mg/dL (0-0.2)
[2019-12-18 14:18] LABS: Platelet Count 251 K/mm3 (140-440)
--- NOTE | 2019-12-18 15:25 | Vascular Lab Report ---
BILATERAL CAROTID DOPPLER ULTRASOUND INDICATION : stroke TECHNIQUE: Grayscale and color Doppler imaging performed through the neck. COMPARISON: None FINDINGS: Right: There is minimal calcific plaques in the proximal ICA. Peak systolic velocity in the CCA is 101 cm/s with end-diastolic velocity of 17 cm/s. Peak systolic velocity in the proximal ICA is 104 cm /s with end-diastolic velocity of 23 cm/s. ICA to CCA ratio is less than 2. There is antegrade flow in the ECA and the vertebral artery. Left: There is mild calcific plaque in the mid CCA and mild soft plaque in the carotid bulb. Peak sys tolic velocity in the CCA is 84 cm/s with end-diastolic velocity of 23 cm/s. Peak systolic velocity i n the proximal ICA is 89 cm/s with end-diastolic velocity of 23 cm/s. ICA to CCA ratio is less than 2 . There is antegrade flow in the ECA and the vertebral artery. IMPRESSION: No hemodynamically significant stenosis by NASCET criteria. Signer Name: Otis Padilla Jr, MD Signed: 12/18/2019 3:20 PM Workstation Name: [id number]
[2019-12-18 17:41] VITALS: BP 120/78
[2019-12-18] MEDS ORDERED: NICOTINE 21 MG/24 HR PATCH TD SCH (19:00)
[2019-12-18] MEDS ORDERED: ALBUTEROL 2.5 MG/3 ML NEBU IH PRN (22:00)
[2019-12-19] MEDS ORDERED: ASPIRIN 325 MG TAB PO SCH (10:00)
== END 2019-12-19 03:00 | disposition left against medical advice (07) ==
LOC: ED 12:04 → 3A 12:40
PROVIDERS: ADMIT Internal Medicine; ATTEND Internal Medicine
DX: I63.9 Cerebral infarction, unspecified (principal); K21.9 Gastro-esophageal reflux disease without esophagitis; K27.9 Peptic ulcer, site unspecified, unspecified as acute or chronic, without hemorrhage or perforation; I16.0 Hypertensive urgency; F17.210 Nicotine dependence, cigarettes, uncomplicated; R27.0 Ataxia, unspecified; J45.909 Unspecified asthma, uncomplicated; Z96.649 Presence of unspecified artificial hip joint; Z79.82 Long term (current) use of aspirin
CPT/HCPCS: 36415; 70450; 71045; 80048; 80076; 82140; 82962; 83735; 84484; 85025; 85610; 85670; 85730; 93005; 93010; 93306; 93880; 96374; 99284; 99406; A9270; G0378; J2060; 80320; G0480

== ENCOUNTER 2021-02-21 07:21 | Emergency (ER) | payer OTHER ==
[2021-02-21 08:09] VITALS: BP 126/81
--- NOTE | 2021-02-21 08:19 | Event Note ---
ED Screening Note Date of service: 02/21/21 Time: 08:15 ED Screening Note: This very pleasant 85-year-old male presents the emergency department chief complaint of acute on chronic upper abdominal pain. He reports he has been having this pain for the past many years but he reports he has been having a flareup of pain over the past week. He reports associated nausea and vomiting. He denies bilious or bloody vomiting, bloody stools, melena, fever, chills, night sweats, headache, dizziness, blurry vision, chest pain, shortness of breath, weakness. He reports he has been seen by multiple specialist in the past and has had colonoscopies and upper endoscopies with no obvious diagnosis of his symptoms other than acid reflux. This initial assessment/diagnostic orders/clinical plan/treatment(s) is/are subject to change based on patients health status, clinical progression and re-assessment by fellow clinical providers in the ED. Further treatment and workup at subsequent clinical providers discretion. Patient/guardian urged not to elope from the ED as their condition may be serious if not clinically assessed and managed. Initial orders include: CBC, CMP, lipase, urinalysis, EKG
[2021-02-21 09:00] LABS: Basophils # (Auto) 0.1 K/mm3 (0.0-0.1); Basophils % (Auto) 1.2 % (0.0-1.8); Eosinophils # (Auto) 0.5 K/mm3 (0.0-0.4); Hematocrit 34.8 % (35.5-45.6); Hemoglobin 10.8 gm/dl (11.8-15.2); Lymphocytes # (Auto) 2.2 K/mm3 (1.2-5.4); Lymphocytes % (Auto) 26.7 % (13.4-35.0); Mean Corpuscular HGB Conc 31 % (32-34); Mean Corpuscular Volume 77 fl (84-94); Monocytes # (Auto) 0.9 K/mm3 (0.0-0.8); Monocytes % (Auto) 11.6 % (0.0-7.3); Platelet Count 282 K/mm3 (140-440); Red Blood Count 4.53 M/mm3 (3.65-5.03)
[2021-02-21 09:01] LABS: Red Cell Distribution Width 22.6 % (13.2-15.2)
[2021-02-21 09:26] LABS: Alanine Aminotransferase 7 units/L (7-56); Albumin 3.8 g/dL (3.9-5); BUN/Creatinine Ratio 10; Blood Urea Nitrogen 13 mg/dL (9-20); Hemolysis Index 3
[2021-02-21 09:30] LABS: Bilirubin,Direct < 0.2 mg/dL (0-0.2)
[2021-02-21 10:00] LABS: Bilirubin,Urine NEG (Negative); Blood,Urine NEG (Negative); Color,Urine Yellow (Yellow); Mucus,Urine FEW /HPF; Urobilinogen,Urine < 2.0 mg/dL (<2.0)
== END 2021-02-21 14:42 ==
LOC: ED 07:21
DX: R10.10 Upper abdominal pain, unspecified (principal); R11.2 Nausea with vomiting, unspecified; Z53.21 Procedure and treatment not carried out due to patient leaving prior to being seen by health care provider
CPT/HCPCS: 36415; 80048; 80076; 81001; 83690; 85025

== ENCOUNTER 2022-04-27 11:46 | Emergency (ER) | payer OTHER ==
[2022-04-27 12:41] VITALS: BP 105/59
[2022-04-27 15:09] LABS: Alanine Aminotransferase 10 units/L (7-56); Albumin 3.7 g/dL (3.9-5); BUN/Creatinine Ratio 21; Blood Urea Nitrogen 23 mg/dL (9-20); Calcium 8.7 mg/dL (8.4-10.2); Hemolysis Index 6
--- NOTE | 2022-04-28 09:06 | Electrocardiograph Report ---
[facility] Test Date: 2022-04-27 Test Time: 12:49:10 Pat Name: RAY CARDENAS Department: Room: Gender: M Portfolio Assistant: FRITZ : 1965 Requested By: ED DOC Order Number: [id number] Reading MD: Edgardo Bustos Measurements Intervals Randall Rate: 77 P: 73 NV: 153 QRS: 24 QRSD: 87 T: 59 QT: 423 QTc: 478 Interpretive Statements Sinus rhythm No previous ECG available for comparison Electronically Signed On 04-28-2022 9:05:57 EDT by Edgardo Bustos
== END 2022-04-28 04:56 | disposition left against medical advice (07) ==
LOC: ED 11:46
DX: R07.9 Chest pain, unspecified (principal); Z53.21 Procedure and treatment not carried out due to patient leaving prior to being seen by health care provider
CPT/HCPCS: 80053; 84484; 93005